=== PATIENT | male | born 1955 ===

== ENCOUNTER 2016-12-01 02:36 | Emergency (ER) | payer MEDICARE ==
[2016-12-01 02:36] VITALS: BMI 32.3
[2016-12-01] MEDS ORDERED: Morphine 4 MG/ML VIAL ONE (03:36)
[2016-12-01] MEDS ORDERED: Morphine 4 MG/ML VIAL IV ONE (04:06)
--- NOTE | 2016-12-01 04:16 | C.PDOC ---
History Of Present Illness 61 year old patient presents to the ED complaining of abdominal pain and nausea since 9 pm yesterday. Patient states he has chronic pancreatitis which is exacerbated. He is requesting medication. Patient was admitted here at [facility] for abdominal pain. Patient had multiple GI studies and a biopsy with no acute findings. Patient was discharged yesterday with Percocet with no relief. Patient denies fever, chest pain, shortness of breath, vomiting, diarrhea, or back pain. Time Seen by Provider: 12/01/16 03:04 Chief Complaint (Nursing): Abdominal Pain History Per: Patient History/Exam Limitations: no limitations Onset/Duration Of Symptoms: Hrs (9 pm), Days (1) Current Symptoms Are (Timing): Still Present Context: Other Severity: Mild Pain Scale Rating Of: 3 Location Of Pain/Discomfort: Diffuse Radiation Of Pain To:: None Quality Of Discomfort: "Pain" Associated Symptoms: Nausea Exacerbating Factors: Other Alleviating Factors: None Last Bowel Movement: Today Recent travel outside of the [place]: No Past Medical History Reviewed: Historical Data, Nursing Documentation, Vital Signs Vital Signs: Last Vital Signs Temp 97.8 F 12/01/16 04:23 Pulse 85 12/01/16 04:23 Resp 18 12/01/16 04:23 BP 160/80 H 12/01/16 04:23 Pulse Ox 98 12/01/16 05:14 - Medical History PMH: Anxiety, Asthma, CAD, Cardia Arrhythmia, Depression, Diabetes (type I), Hepatitis (C), HTN, Hypercholesterolemia, Chronic Pain Surgical History: CABG (X2,4 years ago), [facility]olecyst[facility] - [facility] Procedures ESOPHAGOGASTRODUODENOSCOPY [EGD] W/CLOSED BIOPSY (01/28/04) Family History: States: Unknown Family Hx, Diabetes, Hypertension - Social History Hx Tobacco Use: No Hx Alcohol Use: No Hx Substance Use: No - Immunization History Hx Tetanus Toxoid Vaccination: Yes Hx Influenza Vaccination: Yes (2015) Hx Pneumococcal Vaccination: Yes Review Of Systems Except As Marked, All Systems Reviewed And Found Negative. Constitutional: Negative for: Fever Cardiovascular: Negative for: Chest Pain Respiratory: Negative for: Shortness of Breath Gastrointestinal: Positive for: Nausea, Abdominal Pain. Negative for: Vomiting Musculoskeletal: Negative for: Back Pain Physical Exam - Physical Exam Appears: Non-toxic, No Acute Distress Skin: Warm, Dry Head: Atraumatic, Normacephalic Eye(s): bilateral: Normal Inspection, PERRL, EOMI Neck: Normal ROM, Supple Chest: Symmetrical Cardiovascular: Rhythm Regular Respiratory: Normal Breath Sounds, No Rales, No Rhonchi, No Wheezing Gastrointestinal/Abdominal: Soft, Tenderness (mild and diffuse), No Guarding, No Rebound Back: Normal Inspection, No CVA Tenderness Extremity: Normal ROM Neurological/Psych: Oriented x3, Normal Speech, Normal Cognition ED Course And Treatment O2 Sat by Pulse Oximetry: 98 (RA) Pulse Ox Interpretation: Normal Progress Note: Bentyl was offered. Patient refused. Morphine IM was given. Patient reported to the RN that he has not been eating much recently and he feels lightheaded. Paitent's Accucheck is 47 mg/dL. Patient is given juice and a sanwhich. Patient requests more. Patient is comfortable in the ED with repeat accucheck of 119mg/dl. Patient no longer has pain and is discharged and instructed to follow up with PMD in 1-2 days. Return if symptoms worsen. Reevaluation Time: 03:57 Reassessment Condition: Improved Disposition Counseled Patient/Family Regarding: Diagnosis, Need For Followup - Disposition Referrals: Isabella Solitario MD [Medical Doctor] - Disposition: HOME/ ROUTINE Disposition Time: 04:14 Condition: GOOD Additional Instructions: Follow up with your doctor for chronic pain management Return to ER if worse Instructions: Abdominal Pain (ED) - Clinical Impression Clinical Impression: Chronic abdominal pain - PA / ENVIRONMENTAL TECH / Resident Statement MD/DO has reviewed & agrees with the documentation as recorded. - Scribe Statement The provider has reviewed the documentation as recorded by the Scribe Stephanie Negro All medical record entries made by the Scribe were at my direction and personally dictated by me. I have reviewed the chart and agree that the record accurately reflects my personal performance of the history, physical exam, medical decision making, and the department course for this patient. I have also personally directed, reviewed, and agree with the discharge instructions and disposition.
[2016-12-01 04:25] VITALS: BP 160/80; PULSE 85; RESP 18; TEMP 97.8
[2016-12-01 05:07] VITALS: O2SAT 98
--- NOTE | 2016-12-03 10:21 | CARD ---
APPROVED REPORT EKG Measurement Heart [id number] <Conclusion> Sinus rhythm with 1st degree AV block Possible Left atrial enlargement Possible Inferior infarct, age undetermined Prolonged QT NS ST T CHANGES Abnormal ECG
== END 2016-12-01 04:27 | disposition home or self-care (01) ==
LOC: C.ER 02:36
DX: G89.29 Other chronic pain (principal); R10.9 Unspecified abdominal pain
CPT/HCPCS: 82948; 93005; 96372; 96374; 99284; J0500; J2270

== ENCOUNTER 2016-12-09 06:46 | Emergency (ER) | payer MEDICARE ==
[2016-12-09 06:46] VITALS: BMI 32.3
[2016-12-09 06:59] VITALS: O2SAT 97
--- NOTE | 2016-12-09 07:44 | C.PDOC ---
History Of Present Illness 61 y/o male, whose PMHx includes Diabetes (type I), Hepatitis (C), HTN, Hypercholesterolemia, CAD, Cardia Arrhythmia, and CABG, presents to the ED requesting detox from Oxycontin and Dialudid. He reports that he has been taking these two medications since his open heart surgery 4 years ago. Patient also complains of some left leg pain and reports that he has known clot and is on blood thinners. Patient denies any chest pain, shortness of breath, palpitations, or other complaints. Time Seen by Provider: 12/09/16 07:22 Chief Complaint (Nursing): Substance Abuse History Per: Patient History/Exam Limitations: no limitations Onset/Duration Of Symptoms: Days, Gradual, Persistent Current Symptoms Are (Timing): Still Present Recent travel outside of the [place]: No Past Medical History Reviewed: Historical Data, Nursing Documentation, Vital Signs Vital Signs: Last Vital Signs Temp 98.4 F 12/09/16 11:00 Pulse 78 12/09/16 11:00 Resp 18 12/09/16 11:00 BP 143/85 12/09/16 11:00 Pulse Ox 97 12/09/16 11:54 - Medical History PMH: Anxiety, Asthma, CAD, Cardia Arrhythmia, Depression, Diabetes (type I), Hepatitis (C), HTN, Hypercholesterolemia, Chronic Pain Surgical History: CABG (X2,4 years ago), Cholecystectomy - [facility] Procedures ESOPHAGOGASTRODUODENOSCOPY [EGD] W/CLOSED BIOPSY (01/28/04) INSPECTION OF HEPATOBILIARY DUCT, ENDO (11/25/16) Family History: States: Diabetes, Hypertension - Social History Hx Tobacco Use: No Hx Alcohol Use: No Hx Substance Use: No - Immunization History Hx Tetanus Toxoid Vaccination: Yes Hx Influenza Vaccination: Yes (2016) Hx Pneumococcal Vaccination: Yes Review Of Systems Except As Marked, All Systems Reviewed And Found Negative. Constitutional: Positive for: Other (requesting detox) Cardiovascular: Negative for: Chest Pain, Palpitations Respiratory: Negative for: Shortness of Breath Musculoskeletal: Positive for: Leg Pain (left) Physical Exam - Physical Exam Appears: Non-toxic, No Acute Distress Skin: Normal Color, Warm, Dry Head: Atraumatic, Normacephalic Eye(s): bilateral: Normal Inspection, PERRL Oral Mucosa: Moist Neck: Normal ROM, Supple Chest: Symmetrical, No Tenderness Cardiovascular: Rhythm Regular Respiratory: Normal Breath Sounds, No Rales, No Rhonchi, No Wheezing Gastrointestinal/Abdominal: Normal Exam, Soft, No Tenderness Extremity: Normal ROM, Tenderness (left lower extremity), No Swelling, No Other (erythema) Pulses: Left Dorsalis Pedis: Normal, Right Dorsalis Pedis: Normal Neurological/Psych: Oriented x3, Normal Speech, Normal Cognition, Normal Sensation ED Course And Treatment - Laboratory Results Result Diagrams: 12/09/16 08:01 12/09/16 08:01 Lab Interpretation: Normal ECG: Interpreted By Me ECG Rhythm: Sinus Rhythm Interpretation Of ECst degree AV block, nonspecific ST changes Rate From EC (bpm) O2 Sat by Pulse Oximetry: 97 (ra) Pulse Ox Interpretation: Normal - Other Rad Chest X-Ray X-Ray: Viewed By Me, Read By Radiologist Interpretation: Accession No. : [id number]. Patient Name / ID : TIKA NUNEZ / [id number]. Exam Date : 12/09/2016 07:48:32 ( Approved ). Study Comment : Sex / Age : M / 61Y. Creator : Mag Mcguire MD. Dictator : Mag Mcguire MD. Tack Picker : Gta : Mag Mcguire MD. Approver2 : Report Date : 12/09/2016 11:30:28. My Comment : . HISTORY: SOB. COMPARISON: Chest x-ray performed 11/24/16. TECHNIQUE: Chest PA and lateral. FINDINGS: LUNGS: Mild left basilar atelectasis. Mild biapical pleural thickening. Please note that chest x-ray has limited sensitivity for the detection of pulmonary masses. PLEURA: No significant pleural effusion identified. No definite pneumothorax . CARDIOVASCULAR: Median sternotomy wires. Heart size appears mildly enlarged. Ectatic aorta. OSSEOUS STRUCTURES: Degenerative changes. VISUALIZED UPPER ABDOMEN: Right upper quadrant surgical clips. OTHER FINDINGS: None. IMPRESSION: Mild left basilar atelectasis. Progress Note: Case discussed and patient evaluated by workers compensation legal secretary and Psych information management manager. Patient will be discharged to follow up with outpatient services Reassessment Condition: Unchanged Medical Decision Making Medical Decision Making: Plan: * EKG * CXR * VDS * Labs Disposition Counseled Patient/Family Regarding: Studies Performed, Diagnosis, Need For Followup - Disposition Referrals: Lyle Rivas [Staff Provider] - Disposition: HOME/ ROUTINE Disposition Time: 11:10 Condition: STABLE Additional Instructions: Follow up with outpation services as provided by [employer] Instructions: Narcotic Abuse (ED) - POA Present On Arrival: None - Clinical Impression Clinical Impression: Drug abuse, DVT (deep venous thrombosis), Hx of CABG - PA / SURVEY DATA TECHNICIAN / Resident Statement MD/DO has reviewed & agrees with the documentation as recorded. - Scribe Statement The provider has reviewed the documentation as recorded by the Scribe (Ellie Schneider) All medical record entries made by the Scribe were at my direction and personally dictated by me. I have reviewed the chart and agree that the record accurately reflects my personal performance of the history, physical exam, medical decision making, and the department course for this patient. I have also personally directed, reviewed, and agree with the discharge instructions and disposition.
[2016-12-09 08:07] LABS: BASO # 0.1 K/uL (0.0-0.2); BASO % 0.5 % (0.0-2.0); EOS # 0.1 K/uL (0.0-0.7); EOS % 0.6 % (0.0-4.0); HEMATOCRIT 41.7 % (35.0-51.0); LYMPH # 1.6 K/uL (1.0-4.3); LYMPH % 13.9 % (20.0-40.0); MEAN CORPUSCULAR HEMOGLOBIN 25.9 pg (27.0-31.0); MEAN CORPUSCULAR HGB CONC 31.1 g/dL (33.0-37.0); MEAN PLATELET VOLUME 8.5 fL (7.2-11.7); MONO # 0.6 K/uL (0.0-0.8); MONO % 5.5 % (0.0-10.0); RED CELL DISTRIBUTION WIDTH 15.4 % (11.5-14.5); WHITE BLOOD COUNT 11.6 K/uL (4.8-10.8)
[2016-12-09 08:09] LABS: MEAN CELL VOLUME 83.1 fL (80.0-94.0)
[2016-12-09 08:11] LABS: INR 1.8
[2016-12-09 08:16] LABS: CHLORIDE 94 mmol/L (98-107); POTASSIUM 4.5 mmol/L (3.6-5.2); SODIUM 137 mmol/L (132-148)
[2016-12-09 08:18] LABS: ALB/GLOB RATIO 1.2 (1.0-2.1); AST/SGOT 25 U/L (17-59); BILIRUBIN,TOTAL 0.3 mg/dL (0.2-1.3); BLOOD UREA NITROGEN 12 mg/dL (9-20); CARBON DIOXIDE 31 mmol/L (22-30); GFR AFRICAN-AMERICAN > 60
[2016-12-09 08:19] LABS: ALKALINE PHOSPHATASE 65 U/L (38-126); ALT/SGPT 24 U/L (21-72); CALCIUM 8.9 mg/dl (8.6-10.4); GLUCOSE,RANDOM 137 mg/dL (75-110)
[2016-12-09 08:20] LABS: ALCOHOL SERUM < 10 mg/dl (0-10)
[2016-12-09 09:21] LABS: RBC URINE 2 /hpf (0-3); URINE BILIRUBIN NEGATIVE (NEGATIVE); URINE BLOOD NEGATIVE (NEGATIVE); URINE COLOR Yellow (YELLOW); URINE GLUCOSE (UA) NORMAL (Normal); URINE KETONE NEGATIVE (NEGATIVE); URINE LEUKOCYTE ESTERASE NEG Leu/uL (Negative); URINE PROTEIN NEGATIVE (NEGATIVE); URINE UROBILINOGEN NORMAL mg/dL (0.2-1.0); WBC URINE 1 /hpf (0-5)
[2016-12-09 11:32] VITALS: BP 143/85; PULSE 78; RESP 18; TEMP 98.4
--- NOTE | 2016-12-09 11:33 | RAD ---
HISTORY: SOB COMPARISON: Chest x-ray performed 11/24/16 TECHNIQUE: Chest PA and lateral FINDINGS: LUNGS: Mild left basilar atelectasis. Mild biapical pleural thickening. Please note that chest x-ray has limited sensitivity for the detection of pulmonary masses. PLEURA: No significant pleural effusion identified. No definite pneumothorax . CARDIOVASCULAR: Median sternotomy wires. Heart size appears mildly enlarged. Ectatic aorta. OSSEOUS STRUCTURES: Degenerative changes. VISUALIZED UPPER ABDOMEN: Right upper quadrant surgical clips. OTHER FINDINGS: None. IMPRESSION: Mild left basilar atelectasis.
--- NOTE | 2016-12-09 14:46 | VASCLAB ---
PROCEDURE: Lower Extremity Venous Duplex Exam. HISTORY: pain PRIORS: None. TECHNIQUE: Bilateral common femoral, femoral, popliteal and posterior tibial, peroneal and great saphenous veins were evaluated. Flow was assessed with color Doppler, compressibility, assessment of phasic flow and augmentation response. Report prepared by IBIS Kolb, RVT FINDINGS: RIGHT: 1. Common Femoral Vein: 1.1. Compressibility - Fully compressible: Thrombus - None : Flow - Phasic: Augmentation -Normal: Reflux - None. 2. Femoral Vein: 2.1. Compressibility - Fully compressible: Thrombus - None : Flow - Phasic: Augmentation -Normal: Reflux - None. 3. Popliteal Vein: 3.1. Compressibility - Fully compressible: Thrombus - None : Flow - Phasic: Augmentation -Normal: Reflux - None. 4. Posterior Tibial Vein: 4.1. Compressibility - Fully compressible: Thrombus - None: Flow - Phasic: Augmentation -Normal: Reflux - None. 5. Peroneal Vein: 5.1. Compressibility - Fully compressible: Thrombus - None: Flow - Phasic: Augmentation -Normal: Reflux - None. 6. Great Saphenous Vein: 6.1. Compressibility - Fully compressible: Thrombus - None: Flow - Phasic: Augmentation - Normal: Reflux - None. LEFT: 1. Common Femoral Vein: 1.1. Compressibility - Fully compressible: Thrombus - None: Flow - Phasic: Augmentation -Normal: Reflux - None. 2. Femoral Vein: 2.1. Compressibility - Fully compressible: Thrombus - None: Flow - Phasic: Augmentation -Normal: Reflux - None. 3. Popliteal Vein: 3.1. Compressibility - Fully compressible: Thrombus - None : Flow - Phasic: Augmentation -Normal: Reflux - None. 4. Posterior Tibial Vein: 4.1. Compressibility - Fully compressible: Thrombus - None: Flow - Phasic: Augmentation -Normal: Reflux - None. 5. Peroneal Vein: 5.1. Compressibility - Partial: Thrombus - Chronic: Flow - Absent : Augmentation -None: Reflux - None. 6. Great Saphenous Vein: 6.1. Compressibility - Fully compressible: Thrombus - None: Flow - Phasic: Augmentation - Normal: Reflux - None. OTHER FINDINGS: SHADY Andrade notified about the finding. IMPRESSION: Right: No evidence of deep or superficial vein thrombosis of the right lower extremity. Normal valve function noted of the right side. 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
--- NOTE | 2016-12-10 11:51 | CARD ---
APPROVED REPORT EKG Measurement Heart [id number] <Conclusion> Sinus rhythm with 1st degree AV block Possible Left atrial enlargement Nonspecific T wave abnormality Prolonged QT Abnormal ECG
== END 2016-12-09 11:30 | disposition home or self-care (01) ==
LOC: C.ER 06:46
DX: F19.10 Other psychoactive substance abuse, uncomplicated (principal); I82.402 Acute embolism and thrombosis of unspecified deep veins of left lower extremity; Z95.1 Presence of aortocoronary bypass graft
CPT/HCPCS: 71020; 80053; 81001; 85025; 85610; 93005; 93970; 99285; G0480

== ENCOUNTER 2016-12-12 10:00 | Inpatient (IN) | payer MEDICARE ==
[2016-12-12 10:00] VITALS: BMI 32.3
[2016-12-12 11:20] LABS: BASO # 0.1 K/uL (0.0-0.2); BASO % 0.5 % (0.0-2.0); EOS # 0.1 K/uL (0.0-0.7); EOS % 1.4 % (0.0-4.0); HEMATOCRIT 37.6 % (35.0-51.0); LYMPH # 1.5 K/uL (1.0-4.3); LYMPH % 13.6 % (20.0-40.0); MEAN CELL VOLUME 83.5 fL (80.0-94.0); MEAN CORPUSCULAR HEMOGLOBIN 26.1 pg (27.0-31.0); MEAN CORPUSCULAR HGB CONC 31.3 g/dL (33.0-37.0); MEAN PLATELET VOLUME 8.6 fL (7.2-11.7); MONO # 0.6 K/uL (0.0-0.8); MONO % 5.6 % (0.0-10.0); RED CELL DISTRIBUTION WIDTH 15.6 % (11.5-14.5); WHITE BLOOD COUNT 10.8 K/uL (4.8-10.8)
[2016-12-12 11:42] LABS: CHLORIDE 94 mmol/L (98-107)
[2016-12-12 11:43] LABS: INR 1.1
[2016-12-12 11:43] LABS: POTASSIUM 4.1 mmol/L (3.6-5.2); SODIUM 132 mmol/L (132-148)
--- NOTE | 2016-12-12 11:43 | C.PDOC ---
History Of Present Illness 61 year old patient, with a past medical history of diabetes, asthma, CAD, cardia arrhythmia, hypertension, hepatitis C, and arthritis, is brought to the ED by ambulance complaining of right shoulder pain and left leg pain that has been been going on "for a while," but became worse yesterday. Patient was given 325 mg of Aspirin in the field. Patient reports the right shoulder pain radiates into the upper right chest. Patient denies shortness of breath, vomiting, abdominal pain, numbness or weakness of extremities. Patient was seen in the ED on 12/09/16 requesting Oxycodone and detox from Dilaudid. 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 Time Seen by Provider: 12/12/16 10:05 Chief Complaint (Nursing): Lower Extremity Problem/Injury History Per: Patient History/Exam Limitations: no limitations Onset/Duration Of Symptoms: Worse Since (yesterday), Other ("for a while") Current Symptoms Are (Timing): Still Present Quality: "Pain" Severity: Mild Pain Scale Rating Of: 3 Recent travel outside of the [place]: No Past Medical History Reviewed: Historical Data, Nursing Documentation, Vital Signs Vital Signs: Last Vital Signs Temp 97.9 F 12/12/16 13:14 Pulse 82 12/12/16 13:14 Resp 19 12/12/16 13:14 BP 143/81 12/12/16 13:14 Pulse Ox 99 12/12/16 13:32 - Medical History PMH: Anxiety, Asthma, CAD, Cardia Arrhythmia, Depression, Diabetes (type I), Hepatitis (C), HTN, Hypercholesterolemia, Chronic Pain Surgical History: CABG (X2,4 years ago), Cholecystectomy - [facility] Procedures ESOPHAGOGASTRODUODENOSCOPY [EGD] W/CLOSED BIOPSY (01/28/04) INSPECTION OF HEPATOBILIARY DUCT, ENDO (11/25/16) Family History: States: Diabetes, Hypertension - Social History Hx Tobacco Use: No Hx Alcohol Use: No Hx Substance Use: No - Immunization History Hx Tetanus Toxoid Vaccination: Yes Hx Influenza Vaccination: Yes (2015) Hx Pneumococcal Vaccination: Yes Review Of Systems Except As Marked, All Systems Reviewed And Found Negative. Respiratory: Negative for: Shortness of Breath Gastrointestinal: Negative for: Vomiting, Abdominal Pain Musculoskeletal: Positive for: Shoulder Pain (right), Arm Pain (right), Leg Pain (left) Neurological: Negative for: Weakness, Numbness Physical Exam - Physical Exam Appears: Non-toxic, Other (moaning in pain, awake, alert) Skin: Warm, Dry Head: Atraumatic, Normacephalic Eye(s): bilateral: Normal Inspection, EOMI Neck: Normal ROM, Supple Chest: Symmetrical, No Deformity, No Tenderness, Other (chest midline sternotomy scar) Cardiovascular: Rhythm Regular Respiratory: Normal Breath Sounds, No Rales, No Rhonchi, No Wheezing Back: Normal Inspection, No CVA Tenderness Extremity: Normal ROM, Capillary Refill (within normal limits), No Deformity, Other (right shoulder and humerus:(+) diffusely tender to palpation (-)swelling (-)deformity (-)rash (+)normal capillary refill (+)good radial pulse; left leg: (+)left calf vascular surgery scar (+)lower leg diffusely tender to palpation (- )swelling (-)erythema (+)good pedal pulses) Neurological/Psych: Oriented x3, Normal Speech, Normal Cognition ED Course And Treatment - Laboratory Results Result Diagrams: 12/12/16 11:00 12/12/16 11:00 ECG: Interpreted By Me, Viewed By Me ECG Rhythm: Sinus Rhythm ECG Interpretation: Normal Interpretation Of ECG: Normal axis. No acute ST/T wave changes Rate From EC (bpm) O2 Sat by Pulse Oximetry: 99 (RA) Pulse Ox Interpretation: Normal - Radiology CXR: Interpreted by Me, Viewed By Ia CXR Interpretation: Yes: No Acute Disease. No: Infiltrates, Other (effusion) - CT Scan/US CTA CHEST Other Rad Studies (CT/US): Read By Radiologist, Radiology Report Reviewed CT/US Interpretation: Accession No. : [id number]. Patient Name / ID : TIKA NUNEZ / [id number]. Exam Date : 12/12/2016 12:34:58 ( Approved ). Study Comment : Sex / Age : M / 61Y. Creator : Peña Jacinto MD. Dictator : Peña Jacinto MD. Tree Feller Operator : Well Logging Mud Analysis Captain : Peña Jacinto MD. Approver2 : Report Date : 12/12/2016 13:16:28. My Comment : . PROCEDURE : CT Chest with contrast (Pulmonary Angiogram). HISTORY: h/o dvt, right shoulder/chest pain. COMPARISON: None available. TECHNIQUE: Axial computed tomography images were obtained of the chest in the pulmonary arterial phase of enhancement. Coronal and sagittal reformatted images were created and reviewed. Intravenous contrast dose: 100 mL Visipaque 320. Radiation dose: Total exam DLP = 565.80 mGy-cm. FINDINGS: PULMONARY ARTERIES: There is nonocclusive filling defect seen in the left lower lobe pulmonary artery and several lobar branches. Also the filling defect is seen in a segmental left lower lobe branch. There is a questionable filling defect seen in a right lower lobe subsegmental branch artery. AORTA: No acute findings. No thoracic aortic aneurysm. LUNGS: Minimal bilateral lower lobe dependent atelectasis. No pulmonary infiltrate. PLEURAL SPACES: Unremarkable. No effusion or pneuomothorax. HEART: Normal heart size. CABG. No evidence of right ventricular strain. LYMPH NODES: No lymphadenopathy. BONES, CHEST WALL: Minimal compression deformity superior T11 vertebral endplate, age indeterminate. No paraspinous hemorrhage. Bilateral gynecomastia. OTHER FINDINGS: Pneumobilia. Biliary stent noted. IMPRESSION: Findings consistent with pulmonary embolism involving left lower lobe pulmonary artery and branches and questionable right lower lobe subsegmental pulmonary artery filling defects. No evidence of right ventricular strain. Additional minor findings as above. Progress Note: CTA, Chest x-ray, and EKG taken. Labs were ordered. Toradol and Tylenol given. Disposition Counseled Patient/Family Regarding: Studies Performed, Diagnosis, Need For Followup - Disposition Disposition Time: 13:30 Condition: STABLE - POA Present On Arrival: None - Clinical Impression Clinical Impression: Chest pain, DVT (deep venous thrombosis), Pulmonary embolism - Scribe Statement The provider has reviewed the documentation as recorded by the Scribe Stephanie Negro Provider Attestation: All medical record entries made by the Scribe were at my direction and personally dictated by me. I have reviewed the chart and agree that the record accurately reflects my personal performance of the history, physical exam, medical decision making, and the department course for this patient. I have also personally directed, reviewed, and agree with the discharge instructions and disposition.
[2016-12-12 11:45] LABS: ALB/GLOB RATIO 1.2 (1.0-2.1); ALKALINE PHOSPHATASE 69 U/L (38-126); ALT/SGPT 28 U/L (21-72); AST/SGOT 26 U/L (17-59); BILIRUBIN,TOTAL 0.2 mg/dL (0.2-1.3); BLOOD UREA NITROGEN 18 mg/dL (9-20); CARBON DIOXIDE 25 mmol/L (22-30); GFR AFRICAN-AMERICAN > 60; GLUCOSE,RANDOM 178 mg/dL (75-110)
[2016-12-12] MEDS ORDERED: Iodixanol 320 MG/ML 100 ML BOTTLE IV ONE (12:01)
[2016-12-12] MEDS ORDERED: Morphine 4 MG/ML VIAL ONE ×2 (12:13→13:37)
--- NOTE | 2016-12-12 13:18 | CT ---
PROCEDURE: CT Chest with contrast (Pulmonary Angiogram) HISTORY: h/o dvt, right shoulder/chest pain COMPARISON: None available. TECHNIQUE: Axial computed tomography images were obtained of the chest in the pulmonary arterial phase of enhancement. Coronal and sagittal reformatted images were created and reviewed. Intravenous contrast dose: 100 mL Visipaque 320 Radiation dose: Total exam DLP = 565.80 mGy-cm. FINDINGS: PULMONARY ARTERIES: There is nonocclusive filling defect seen in the left lower lobe pulmonary artery and several lobar branches. Also the filling defect is seen in a segmental left lower lobe branch. There is a questionable filling defect seen in a right lower lobe subsegmental branch artery. AORTA: No acute findings. No thoracic aortic aneurysm. LUNGS: Minimal bilateral lower lobe dependent atelectasis. No pulmonary infiltrate. PLEURAL SPACES: Unremarkable. No effusion or pneuomothorax. HEART: Normal heart size. CABG. No evidence of right ventricular strain. LYMPH NODES: No lymphadenopathy. BONES, CHEST WALL: Minimal compression deformity superior T11 vertebral endplate, age indeterminate. No paraspinous hemorrhage. Bilateral gynecomastia. OTHER FINDINGS: Pneumobilia. Biliary stent noted. IMPRESSION: Findings consistent with pulmonary embolism involving left lower lobe pulmonary artery and branches and questionable right lower lobe subsegmental pulmonary artery filling defects. No evidence of right ventricular strain. Additional minor findings as above.
[2016-12-12] MEDS ORDERED: Enoxaparin 40 mg Syringe SC STA (13:29)
[2016-12-12] MEDS ORDERED: Enoxaparin 60 mg Syringe ONE (13:36)
[2016-12-12] MEDS ORDERED: Enoxaparin 30 mg Syringe ONE (13:37)
--- NOTE | 2016-12-12 15:54 | RAD ---
PROCEDURE: CHEST RADIOGRAPH, 1 VIEW HISTORY: chest/shoulder pain COMPARISON: None available. FINDINGS: LUNGS: Clear. PLEURA: No pneumothorax or pleural fluid seen. CARDIOVASCULAR: Normal heart size. Sternotomy wires. OSSEOUS STRUCTURES: No significant abnormalities. VISUALIZED UPPER ABDOMEN: Normal. OTHER FINDINGS: None. IMPRESSION: No active disease.
[2016-12-12 16:19] VITALS: RESP 20
--- NOTE | 2016-12-12 16:21 | CP.PCM.HP ---
<Star Hercules - Last Filed: 12/12/16 18:46> History of Present Illness - History of Present Illness History of Present Illness: CC: right shoulder pain HPI: 61M PMHx LLE DVT, DM, hepatitis C, CAD with CABG, HTN, anxiety presents with right shoulder pain for one day. Patient described pain as sudden onset and sharp with severe intensity in the right bicep area without radiation, and pain exacerbates with movement. Patient also complains chronic left leg pain secondary to DVT, as well as bilateral lower extremity edema. Per ED report, patient was given ASA 325mg in the field. Patient denied associated SOB, chest pain, palpitation, abdominal pain, n/v, fever, chills, trauma, numbness, tingling, constipation, diarrhea. Patient said he was diagnosed with hepatitis C 3 years ago but haven't follow up with any specialist. Patient also said he was compliant all of his medications at home. Patient has history of leaving AMA and exhibits drug seeking behavior for pain. Per state record, patient gets Percocet 10mg from his neurologist Dr. Parrish. PMHx: see above. PSHx: pancreatic surgery 20 years ago, cholecystectomy, CABG, b/l rotator cuff tears. Allergies: NKDA (PCN as per EMR). Family Hx: Mother with HI at 63. PMD: Dr. Colby Present on Admission - Present on Admission Any Indicators Present on Admission: Yes History of DVT/PE: Yes Review of Systems - Constitutional Constitutional: absent: Anorexia, Fever, Weakness - EENT Eyes: absent: Blurred Vision Nose/Mouth/Throat: absent: Nasal Congestion - Cardiovascular Cardiovascular: Leg Edema. absent: Chest Pain, Claudication, Dyspnea - Respiratory Respiratory: absent: Cough, Dyspnea, Wheezing - Gastrointestinal Gastrointestinal: absent: Abdominal Pain, Constipation, Diarrhea, Nausea, Vomiting - Genitourinary Genitourinary: absent: Dysuria - Musculoskeletal Additional comments: right arm pain - Neurological Neurological: absent: Headaches, Weakness - Psychiatric Psychiatric: absent: Anxiety Past Patient History - Infectious Disease Hx of Infectious Diseases: None - Past Medical History & Family History Past Medical History?: Yes - Past Social History Smoking Status: Former Smoker - CARDIAC Hx Cardia Arrhythmia: Yes Hx Hypercholesterolemia: Yes Hx Hypertension: Yes - PULMONARY Hx Asthma: Yes - NEUROLOGICAL Hx Neurological Disorder: Yes Other/Comment: neuropathy - ENDOCRINE/METABOLIC Hx Endocrine Disorders: Yes Hx Diabetes Mellitus Type 2: Yes - HEMATOLOGICAL/ONCOLOGICAL Hx Blood Disorders: Yes Hx Hepatitis C: Yes - INTEGUMENTARY Hx Dermatological Problems: No - MUSCULOSKELETAL/RHEUMATOLOGICAL Hx Musculoskeletal Disorders: Yes Hx Falls: Yes - GASTROINTESTINAL Hx Gastrointestinal Disorders: Yes Hx Constipation: Yes Hx Hemorrhoids: Yes Other/Comment: pancreatitis - GENITOURINARY/GYNECOLOGICAL Hx Genitourinary Disorders: Yes (SEE COMMENT) Hx Urinary Tract Infection: Yes (dx 04/07/2016) - PSYCHIATRIC Hx Anxiety: Yes Hx Depression: Yes Hx Substance Use: No - SURGICAL HISTORY Hx Cholecystectomy: Yes Hx Coronary Artery Bypass Graft: Yes (X2,4 years ago) - ANESTHESIA Hx Anesthesia: Yes Hx Anesthesia Reactions: No Hx Malignant Hyperthermia: No Has any member of the family had a problem w/ anesthesia?: No Meds Allergies/Adverse Reactions: Allergies Allergy/AdvReac Type Severity Reaction Status Date / Time Penicillins Allergy RASH Verified 12/12/16 10:01 Physical Exam - Constitutional Appears: Non-toxic, No Acute Distress - Head Exam Head Exam: NORMAL INSPECTION, NORMOCEPHALIC - Eye Exam Eye Exam: Normal appearance Pupil Exam: NORMAL ACCOMODATION - Respiratory Exam Respiratory Exam: Clear to Auscultation Bilateral, NORMAL BREATHING PATTERN. absent: Rhonchi, Wheezes - Cardiovascular Exam Cardiovascular Exam: REGULAR RHYTHM, JVD, +S1, +S2. absent: Gallop, Rubs - GI/Abdominal Exam GI & Abdominal Exam: Normal Bowel Sounds, Soft. absent: Tenderness - Extremities Exam Extremities exam: Positive for: pedal edema (bilateral), tenderness (bilateral left calf), pedal pulses present Additional comments: right bicep tender to palpation, strength 3/5 secondary to pain, sensations intact bilaterally - Neurological Exam Neurological exam: Alert, Oriented x3 - Psychiatric Exam Psychiatric exam: Normal Affect, Normal Mood - Skin Skin Exam: Dry, Intact Results - Vital Signs Recent Vital Signs: Last Vital Signs Temp 98.2 F 12/12/16 14:23 Pulse 84 12/12/16 14:23 Resp 16 12/12/16 14:23 BP 139/82 12/12/16 14:23 Pulse Ox 97 12/12/16 14:23 - Labs Result Diagrams: 12/12/16 11:00 12/12/16 11:00 Assessment & Plan - Assessment and Plan (Free Text) Assessment: PE Pulmonary angiogram showed PE in left lower lobe pulmonary artery and branches, and questionable right lower lobe subsegmental pulmonary artery filling defects. No defect os ventricular strain. Vascular surgeon Dr. Diane consulted for evaluation of IVC filter due to questionable home med compliance, help appreciated. Patient was given Lovenox 90mg SC once in ED. Continue Lovenox 90mg SC q12H. F/U LUCIAN x2. DVT Pt said he has been compliant with Xarelto 15mg PO BID at home. PT/PTT/INR WNL. DM RISS, accuccheck. Continue home med Novolin 70/30 60U SC BID. Home med Metformin on hold. F/U A1c. CHF Continue home med Lasix 20mg PO BID, Lopressor 25mg PO BID and Lisionpril 10mg PO daily F/U ECHO. HTN Continue home med Lopressor 25mg PO BID and Lisionpril 10mg PO daily Hx of arrhythmia Continue home med Amiodarone 200mg PO daily. Hx of anxiety Continue home med Xanax 1mg PO TID PRN, Cymbalta 60mg PO daily, Lyrica 75mg PO BID, Lexapro 10mg PO daily and Remeron 30mg PO HS. Back pain Continue home med Percocet 5mg 2 tab PO q8H PRN. Prophylactic measure SCD contraindicated due to DVT. Lovenox 90mg SC q12H Protonix 40mg PO daily. <Erasto Ray - Last Filed: 12/13/16 08:44> Results - Vital Signs Recent Vital Signs: Last Vital Signs Temp 97.6 F 12/13/16 00:00 Pulse 89 12/13/16 00:00 Resp 20 12/13/16 00:00 BP 148/70 12/13/16 00:00 Pulse Ox 96 12/13/16 00:00 - Labs Result Diagrams: 12/12/16 11:00 12/12/16 11:00 Labs: Laboratory Results - last 24 hr 12/12/16 12/12/16 12/13/16 21:25 22:27 06:09 POC Glucose (mg/dL) 462 H* 483 H* Total Creatine Kinase 54 L CK-MB (Mass) 1.11 Troponin I, Quant < 0.0120 Attending/Attestation - Attestation I have personally seen and examined this patient.: Yes I have fully participated in the care of the patient.: Yes I have reviewed all pertinent clinical information: Yes Notes (Text): Patient with CAD s/p CABG, DM, recent LLE DVT (started on xarelto), hep C, depression, anxiety disorder and back pain, presented to ED with multiple pain complaints including chest pain and R arm pain; In light of DVT history, chest CTA was done and showed PE (no previous CTA done here); Patient admits to being adherent to all his meds including xarelto which was last filled on 12/03/16 per his outpatient pharmacy; however, neither PT and PTT are prolonged (some degree of prolongation is generally expected even though no specific target range can be used for monitoring); further, patient has history of poor medical compliance including signing AMA from ED when DVT was initially discovered; Unclear etiology of R humerus pain, will get plain films; back pain is chronic, on percocet 10-325 at home (120 pills per month regularly [facility] will restart q8h prn; Has pain seeking behavior, asking for dilaudid and refusing morphine saying that it causes him GI symptoms; DM on very high dose of 70/30 insulin, 60 u bid, will restart; sugars earlier in the day relatively controlled; HTN controlled, continue home meds; Depression and anxiety, continue home meds; -vascular surgery consult for IVC filter (either because patient has PE despite being on AC or is non-compliant with meds)
[2016-12-12] MEDS ORDERED: Metoprolol Succinate 25 mg XL Tab PO SCH (18:00)
[2016-12-12] MEDS: (Novolin 70/30) NPH/Regular 70/30 Units/ml 10 ml vial SC SCH (18:04)
[2016-12-12] MEDS: Oxycodone/Acetaminophen 5/325 mg Tab PO PRN (19:14)
[2016-12-12] MEDS: (Novolin R) Insulin Human Regular 100 units/ml vial SC SCH (21:45)
[2016-12-13] MEDS: Oxycodone/Acetaminophen 5/325 mg Tab PO PRN (05:10)
--- NOTE | 2016-12-13 07:50 | CP.PCM.PN ---
Subjective - Date & Time of Evaluation Date of Evaluation: 12/13/16 Time of Evaluation: 06:49 - Subjective Subjective: Code star called at 6:49am. Patient found on floor next to bed, yelling at staff , demanding his pain medication. When I attempted to interview the patient and perform a physical exam, he remained irate yelling at the top of his lungs that he wants his dilaudid or percocet, yelling "I have clots in my legs, clots in my pancreas, I can feel them traveling to my brain, if I I'm going to tay you." Per nursing, patient was observed walking to the nourishment area roughly 30 minutes prior to this code. His blood glucose was elevated, and nursing attempted to instruct the patient on proper glucose control, advising him to consume low sugar foods. Patient disregarded this, drank 2 juices, and walked back to his room without any difficulty. Soon after he demanded dilaudid, was informed it wasn't time yet, and when the nurses left the room, he buzzed them back in using the call chang, only to be found lying next to his bed. As soon as nursing walked into the room, he made eye contact, and began to scream his demands. On physical exam: General: angry, irritated, non-compliant HEENT: atraumatic, normocephalic, MMM, no contusion or scalp pain PULM: CTA b/l Cardio: RRR, S1, S2 Extremities: Motion testing normal/intact; old surgical incision noted on L leg. Skin: No contusions or laceration visible Throught evening, Pt refused vitals, LUCIAN's, lab work, accuchecks, heart monitor , and all other intervention. Pt states he only wants percocet for hx of blood clot and that he will tay if he doesn't get percocet. 1:1 order placed to observe patient and maintain safety. Day team to f/u CT Head w/o contrast and b/ l Knee Xrays. PGY1 Resident - Peña Grider Objective - Vital Signs/Intake and Output Vital Signs (last 24 hours): Temp Pulse Resp BP Pulse Ox 97.6 F 89 20 148/70 96 12/13/16 00:00 12/13/16 00:00 12/13/16 00:00 12/13/16 00:00 12/13/16 00:00 Intake and Output: 12/13/16 12/13/16 06:59 18:59 Intake Total 840 Balance 840 - Medications Medications: Current Medications Alprazolam (Xanax) 1 mg PO TID PRN PRN Reason: Anxiety Last Admin: 12/12/16 18:01 Dose: 1 mg Amiodarone HCl (Cordarone) 200 mg PO DAILY [facility] Duloxetine HCl (Cymbalta) 60 mg PO DAILY [facility] Escitalopram Oxalate (Lexapro) 10 mg PO DAILY [facility] Fenofibrate (Tricor) 48 mg PO QPM [facility] Last Admin: 12/12/16 19:00 Dose: 48 mg Furosemide (Lasix) 20 mg PO BID [facility] Last Admin: 12/12/16 18:01 Dose: 20 mg Insulin Human Isoph/Insulin Regular (Novolin 70/30 (70/30 Units/Ml) 10 Ml) 60 units SC BID [facility] Last Admin: 12/12/16 18:04 Dose: Not Given Insulin Human Regular (Novolin R) 0 unit SC ACHS [facility] PRN Reason: Protocol Last Admin: 12/12/16 21:45 Dose: 4 unit Lisinopril (Zestril) 10 mg PO DAILY [facility] Metoprolol Tartrate (Lopressor) 25 mg PO BID [facility] Mirtazapine (Remeron) 30 mg PO HS [facility] Last Admin: 12/12/16 21:07 Dose: 30 mg Oxycodone/Acetaminophen (Percocet 5/325 Mg Tab) 2 tab PO Q8H PRN PRN Reason: severe pain Stop: 12/15/16 17:34 Last Admin: 12/13/16 05:10 Dose: 2 tab Pantoprazole Sodium (Protonix Ec Tab) 40 mg PO DAILY [facility] Pregabalin (Lyrica) 75 mg PO BID [facility] Last Admin: 12/12/16 18:01 Dose: 75 mg Zolpidem Tartrate (Ambien) 5 mg PO HS PRN PRN Reason: Insomnia - Labs Labs: PT 12.1 SECONDS (9.7-12.2) 12/12/16 11:24 INR 1.1 12/12/16 11:24 APTT 23 SECONDS (21-34) 12/12/16 11:24
[2016-12-13] MEDS: (Novolin R) Insulin Human Regular 100 units/ml vial SC SCH ×3 (09:09→16:15)
[2016-12-13] MEDS ORDERED: Pantoprazole 40 mg EC Tab PO SCH (10:00)
[2016-12-13] MEDS: (Novolin 70/30) NPH/Regular 70/30 Units/ml 10 ml vial SC SCH (10:07)
[2016-12-13] MEDS ORDERED: HYDROmorphone 0.5 mg/0.5 ml ISec IVP PRN ×2 (10:12→10:24)
[2016-12-13] MEDS ORDERED: Oxycodone/Acetaminophen 5/325 mg Tab PO PRN (10:24)
[2016-12-13] MEDS ORDERED: Enoxaparin 100 mg Syringe SC SCH (11:00)
--- NOTE | 2016-12-13 11:06 | RAD ---
PROCEDURE: Bilateral knees HISTORY: code star COMPARISON: Not available TECHNIQUE: AP and lateral portable radiographs of the right and left knee FINDINGS: No evidence of fracture. Joint spaces and articular surfaces are grossly preserved. No evidence of joint effusion/hemarthrosis. IMPRESSION: No acute fracture.
--- NOTE | 2016-12-13 11:07 | RAD ---
PROCEDURE: Right shoulder HISTORY: right shoulder pain COMPARISON: 01/06/2016 TECHNIQUE: Limited single AP radiograph, portable FINDINGS: No evidence of fracture. No dislocation. Acromioclavicular and glenohumeral articulations appear preserved. IMPRESSION: No acute fracture. Limited examination
--- NOTE | 2016-12-13 11:07 | PCM.PSYCH ---
Initial Psychiatric Evaluation - Initial Psychiatric Evaluation Legal Status: Capacity Chief Complaint (in patient's own words): REASON FOR CONSULT;CAPACITY OF PATIENT TO SIGN OUT AMA PT HAS A PE. PT WANTED TO LEAVE BECAUSE HE WAS RECEIVING THE PAIN MEDICATION HE WANTED/NEEDED. PT WANTED DILAUDID AND HE HAS BEEN RECEIVING DILAUDID BUT PT DID NOT SEEM AWARE OF THIS. PT IS A 62 YEAR OLD DOMICILED MALE WHO WAS ORIGINALLY ADMITTED FOR RIGHT SHOULDER PAIN AND FOUND TO BE A PULMONARY EMBOLUS. PT HAS A HISTORY OF DVTS. PT ALSO SUFFERS FROM ANXIETY AND DEPRESSION. PT WAS SUPPOSED TO BE TAKING XARELTO AT HOME BUT UNCLEAR IF HE WAS ADHERENT PT IS ALSO A INSULIN REQUIRING TYPE 2 DIABETIC. PT WAS BORN IN [place] AND CAME TO [facility] AGE 7. PT IS . HE WAS . HE HAS 3 ADULT CHILDREN. HE HAS NO LEGAL, OR SUBSTANCE ABUSE HISTORY. HE DENIES ANY FAMILY HISTORY OF MENTAL ILLNESS OR SUBSTANCE ABUSE HISTORY PT DENIES HE HAS EVER BEEN IN PT FOR PSYCHIATRIC REASON IN MY OPINION WITH A FAIR DEGREE OF MEDICAL CERTAINTY , THE PT IS AWARE OF THE POSSIBLE CONSEQUENCES OF LEAVING THE HOSPITAL AGAINST MEDICAL ADVICE. PT IS NOT CURRENTLY SUICIDAL OR HOMICIDAL. HOWEVER, THIS IS NO GUARANTEE FOR THE FUTURE. THE BEST PREDICTOR OF FUTURE BEHAVIOR IS PASSED BEHAVIOR Patient's Reaction to Hospitalization: SEE ABOVE History of Present Illness and Precipitating Events: SEE ABOVE PT SUFFERS FROM DIABETES, DVTS, ANXIETY AND DEPRESSION Current Medications: Active Medications Generic Name Dose Route Start Last Admin Trade Name Freq PRN Reason Stop Dose Admin Alprazolam 1 mg 12/12/16 17:31 12/12/16 18:01 Xanax PO 1 mg TID PRN Administration Anxiety Amiodarone HCl 200 mg 12/13/16 10:00 12/13/16 09:10 Cordarone PO 200 mg DAILY [facility] Administration Duloxetine HCl 60 mg 12/13/16 10:00 Cymbalta PO DAILY [facility] Escitalopram Oxalate 10 mg 12/13/16 10:00 Lexapro PO DAILY [facility] Fenofibrate 48 mg 12/12/16 18:00 12/12/16 19:00 Tricor PO 48 mg QPM [facility] Administration Furosemide 20 mg 12/12/16 18:00 12/13/16 09:10 Lasix PO 20 mg BID [facility] Administration Hydromorphone HCl 0.1 mg 12/13/16 10:24 Dilaudid IVP Q8H PRN severe pain Insulin Human Isoph/Insulin Regular 60 units 12/12/16 18:00 12/13/16 10:07 Novolin 70/30 (70/30 Units/Ml) 10 Ml SC 60 units BID [facility] Administration Insulin Human Regular 0 unit 12/12/16 22:00 12/13/16 09:09 Novolin R SC 12 unit ACHS [facility] Administration Protocol Lisinopril 10 mg 12/13/16 10:00 Zestril PO DAILY [facility] Metoprolol Tartrate 25 mg 12/13/16 10:00 12/13/16 09:11 Lopressor PO 25 mg BID [facility] Administration Mirtazapine 30 mg 12/12/16 22:00 12/12/16 21:07 Remeron PO 30 mg HS [facility] Administration Oxycodone/Acetaminophen 2 tab 12/13/16 10:24 Percocet 5/325 Mg Tab PO 12/15/16 17:34 Q6H PRN severe pain Pantoprazole Sodium 40 mg 12/13/16 10:00 Protonix Ec Tab PO DAILY [facility] Pregabalin 75 mg 12/12/16 18:00 12/13/16 09:08 Lyrica PO 75 mg BID [facility] Administration Zolpidem Tartrate 5 mg 12/12/16 17:34 Ambien PO HS PRN Insomnia Past Psychiatric History - Past Psychiatric History Prior Professional Help: SEE HPI Pertinent Medical Hx (Current Medical&Sleep Prob, Allergies): Allergies Allergy/AdvReac Type Severity Reaction Status Date / Time Penicillins Allergy RASH Verified 12/12/16 10:01 Metoprolol Succinate 25 mg PO BID 02/19/15 Lisinopril [Zestril] 10 mg PO DAILY 08/04/16 Omeprazole Magnesium [Prilosec Otc] 20 mg PO QPM #30 tab 08/04/16 Rivaroxaban [Xarelto] 15 mg PO BID #28 tab 11/19/16 Aluminum Hydroxide/Magnesium H [Maalox 30 ml] 30 ml PO ONCE udc 11/30/16 Amiodarone [Cordarone] 200 mg PO DAILY tab 11/30/16 Escitalopram [Lexapro] 10 mg PO DAILY #30 tab 11/30/16 Fenofibrate [Tricor] 48 mg PO QPM tab 11/30/16 Furosemide [Lasix] 20 mg PO BID tab 11/30/16 Insulin Human (NPH)/Regular [Novolin 70/30 (70/30 units/ml) 10 ml] 60 units SC BID unit 11/30/16 Mirtazapine [Remeron] 30 mg PO HS tab 11/30/16 metFORMIN [glucOPHAGE] 1,000 mg PO BIDCC #60 tab 11/30/16 oxyCODONE/Acetaminophen [Percocet 5/325 mg Tab] 1 ea PO Q6H PRN #10 tab Review of Systems - Constitutional Constitutional: Malaise - EENT Eyes: UNREMARKABLE Ears: UNREMARKABLE Nose/Mouth/Throat: UNREMARKABLE - Cardiovascular Additional comments: RIGHT SHOULDER PAIN - Respiratory Respiratory: Dyspnea - Genitourinary Genitourinary: UNREMARKABLE - Reproductive: Male Reproductive:Male: UNREMARKABLE - Musculoskeletal Musculoskeletal: Radiating Pain into Limb - Integumentary Integumentary: UNREMARKABLE - Neurological Neurological: UNREMARKABLE - Psychiatric Psychiatric: Anxiety, Depression - Endocrine Endocrine: UNREMARKABLE - Hematologic/Lymphatic Additional comments: DVTS Mental Status Examination - Personal Presentation Personal Presentation: Looks older than stated age - Affect Affect: Constricted - Motor Activity Motor Activity: Psychomotor Agitation - Reliability in Providing Information Reliability in Providing Information: Good - Speech Speech: Organized - Mood Mood: Anxious - Formal Thought Process Formal Thought Process: No Impairment - Obsessions/Compulsions Obsessions: None Compulsions: None - Cognitive Functions Orientation: Person, Place, Situation, Time Attention/Concentration: Attentive Abstract Thinking: [place] Memory: Recent intact, as evidence by: Ability to recall events of the day, Remote intact, as evidenced by: Ability to recall historical events - Risk Risk: Falls - Strength & Assets Inventory Strength & Assets Inventory: Intelligence, Family support DSM 5 DX - DSM 5 DSM 5 Diagnosis: MAJOR DEPRESSIVE DISORDER GENERALIZED ANXIETY DISORDER PULMONARY EMBOLUS\DVTS DIABETES MELLITUS - Recommended/Plan of Treatment Treatment Recommendations and Plan of Treatment: MAJOR DEPRESSIVE DISORDER CYMBALTA LEXAPRO RENEROM SOPHY XANAX PULMONARY EMBOLUS/DVT= LOVENOX IVC FILTER DIABETES MELLITUS INSULIN Projected ELOS: TO BE DECIDED BY MEDICINE ND SURGERY Prognosis: FAIR Discharge Plan and Discharge Criteria: RETUTN HOME - Smoking Cessation Smoking Cessation Initiated: No Reason for not providing: DOES NOT SMOKE
--- NOTE | 2016-12-13 12:48 | CP.PCM.PN ---
Subjective - Date & Time of Evaluation Date of Evaluation: 12/13/16 Time of Evaluation: 12:48 - Subjective Subjective: for wednesday Objective - Vital Signs/Intake and Output Vital Signs (last 24 hours): Temp Pulse Resp BP Pulse Ox 97.6 F 89 20 153/74 H 96 12/13/16 00:00 12/13/16 00:00 12/13/16 00:00 12/13/16 09:11 12/13/16 00:00 Intake and Output: 12/13/16 12/13/16 06:59 18:59 Intake Total 840 Balance 840 - Medications Medications: Current Medications Alprazolam (Xanax) 1 mg PO TID PRN PRN Reason: Anxiety Last Admin: 12/12/16 18:01 Dose: 1 mg Amiodarone HCl (Cordarone) 200 mg PO DAILY [facility] Last Admin: 12/13/16 09:10 Dose: 200 mg Duloxetine HCl (Cymbalta) 60 mg PO DAILY [facility] Last Admin: 12/13/16 11:49 Dose: Not Given Escitalopram Oxalate (Lexapro) 10 mg PO DAILY [facility] Last Admin: 12/13/16 11:50 Dose: Not Given Fenofibrate (Tricor) 48 mg PO QPM [facility] Last Admin: 12/12/16 19:00 Dose: 48 mg Furosemide (Lasix) 20 mg PO BID [facility] Last Admin: 12/13/16 09:10 Dose: 20 mg Hydromorphone HCl (Dilaudid) 0.1 mg IVP Q8H PRN PRN Reason: severe pain Last Admin: 12/13/16 11:46 Dose: 0.1 mg Insulin Human Isoph/Insulin Regular (Novolin 70/30 (70/30 Units/Ml) 10 Ml) 60 units SC BID [facility] Last Admin: 12/13/16 10:07 Dose: 60 units Insulin Human Regular (Novolin R) 0 unit SC ACHS [facility] PRN Reason: Protocol Last Admin: 12/13/16 09:09 Dose: 12 unit Lisinopril (Zestril) 10 mg PO DAILY [facility] Metoprolol Tartrate (Lopressor) 25 mg PO BID [facility] Last Admin: 12/13/16 09:11 Dose: 25 mg Mirtazapine (Remeron) 30 mg PO HS [facility] Last Admin: 12/12/16 21:07 Dose: 30 mg Oxycodone/Acetaminophen (Percocet 5/325 Mg Tab) 2 tab PO Q6H PRN PRN Reason: severe pain Stop: 12/15/16 17:34 Pantoprazole Sodium (Protonix Ec Tab) 40 mg PO DAILY [facility] Pregabalin (Lyrica) 75 mg PO BID [facility] Last Admin: 12/13/16 09:08 Dose: 75 mg Zolpidem Tartrate (Ambien) 5 mg PO HS PRN PRN Reason: Insomnia - Labs Labs: PT 12.1 SECONDS (9.7-12.2) 12/12/16 11:24 INR 1.1 12/12/16 11:24 APTT 23 SECONDS (21-34) 12/12/16 11:24
--- NOTE | 2016-12-13 12:50 | CT ---
PROCEDURE: CT HEAD WITHOUT CONTRAST. HISTORY: Code star, pt reports hitting head, no contusion COMPARISON: None available. TECHNIQUE: Axial computed tomography images were obtained through the head/brain without intravenous contrast. Radiation dose: Total exam DLP = 859.55 mGy-cm. FINDINGS: HEMORRHAGE: No intracranial hemorrhage. BRAIN: No mass effect or edema. Mild age-appropriate diffuse atrophy. Mild chronic microvascular white matter ischemic change. No evidence of acute infarct. VENTRICLES: Unremarkable. No hydrocephalus. CALVARIUM: Unremarkable. PARANASAL SINUSES: Unremarkable as visualized. No significant inflammatory changes. MASTOID AIR CELLS: Unremarkable as visualized. No inflammatory changes. OTHER FINDINGS: None. IMPRESSION: Age-appropriate involutional change. No intracranial hemorrhage. Otherwise unremarkable.
--- NOTE | 2016-12-13 13:51 | CP.PCM.PN ---
Subjective - Date & Time of Evaluation Date of Evaluation: 12/14/15 Time of Evaluation: 10:00 - Subjective Subjective: PGY2 on medicine Dr. Ray service: Pt seen and examined at bedside and hallway. Pt refused all blood tests and imaging studies this morning because he was not given Dilaudid. Pt complains severe pain with his LLE due to chronic DVT. Pt was placed on 1:1 after joe lo after RN found him laying on the floor, after failure to obtain Dilaudid. Pt also got aggressive with CP on the floor as well and Ativan 1mg IM was given. Joe carcamo was called after pt trying to leave AMA. Risks of leaving AMA was explained to pt at length. Psych Dr. Chamberlain was consulted and determined that patient has capacity to make decisions. Pt calmed down after Dilaudid 1mg IVP q8H started as per attending Dr. Ray. Pt scheduled to have IVC filter placement on Wednesday as per Dr. Diane. Objective - Vital Signs/Intake and Output Vital Signs (last 24 hours): Temp Pulse Resp BP Pulse Ox 97.6 F 89 20 153/74 H 96 12/13/16 00:00 12/13/16 00:00 12/13/16 00:00 12/13/16 09:11 12/13/16 00:00 Intake and Output: 12/13/16 12/13/16 06:59 18:59 Intake Total 840 Balance 840 - Medications Medications: Current Medications Alprazolam (Xanax) 1 mg PO TID PRN PRN Reason: Anxiety Last Admin: 12/12/16 18:01 Dose: 1 mg Amiodarone HCl (Cordarone) 200 mg PO DAILY [facility] Last Admin: 12/13/16 09:10 Dose: 200 mg Duloxetine HCl (Cymbalta) 60 mg PO DAILY [facility] Last Admin: 12/13/16 11:49 Dose: Not Given Enoxaparin Sodium (Lovenox) 90 mg SC Q12 [facility] Escitalopram Oxalate (Lexapro) 10 mg PO DAILY [facility] Last Admin: 12/13/16 11:50 Dose: Not Given Fenofibrate (Tricor) 48 mg PO QPM [facility] Last Admin: 12/12/16 19:00 Dose: 48 mg Furosemide (Lasix) 20 mg PO BID [facility] Last Admin: 12/13/16 09:10 Dose: 20 mg Hydromorphone HCl (Dilaudid) 0.1 mg IVP Q8H PRN PRN Reason: severe pain Last Admin: 12/13/16 11:46 Dose: 0.1 mg Insulin Human Isoph/Insulin Regular (Novolin 70/30 (70/30 Units/Ml) 10 Ml) 60 units SC BID [facility] Last Admin: 12/13/16 10:07 Dose: 60 units Insulin Human Regular (Novolin R) 0 unit SC ACHS MARCELL PRN Reason: Protocol Last Admin: 12/13/16 13:11 Dose: 10 unit Lisinopril (Zestril) 10 mg PO DAILY [facility] Last Admin: 12/13/16 10:00 Dose: Not Given Metoprolol Tartrate (Lopressor) 25 mg PO BID [facility] Last Admin: 12/13/16 09:11 Dose: 25 mg Mirtazapine (Remeron) 30 mg PO HS [facility] Last Admin: 12/12/16 21:07 Dose: 30 mg Oxycodone/Acetaminophen (Percocet 5/325 Mg Tab) 2 tab PO Q6H PRN PRN Reason: severe pain Stop: 12/15/16 17:34 Pantoprazole Sodium (Protonix Ec Tab) 40 mg PO DAILY [facility] Last Admin: 12/13/16 10:00 Dose: Not Given Pregabalin (Lyrica) 75 mg PO BID [facility] Last Admin: 12/13/16 09:08 Dose: 75 mg Zolpidem Tartrate (Ambien) 5 mg PO HS PRN PRN Reason: Insomnia - Labs Labs: PT 12.1 SECONDS (9.7-12.2) 12/12/16 11:24 INR 1.1 12/12/16 11:24 APTT 23 SECONDS (21-34) 12/12/16 11:24 - Constitutional Appears: No Acute Distress, Agitated - Eye Exam Eye Exam: Normal appearance Pupil Exam: NORMAL ACCOMODATION - Respiratory Exam Respiratory Exam: Clear to Ausculation Bilateral, NORMAL BREATHING PATTERN. absent: Rhonchi, Wheezes - Cardiovascular Exam Cardiovascular Exam: REGULAR RHYTHM, +S1, +S2. absent: Gallop, Rubs - GI/Abdominal Exam GI & Abdominal Exam: Soft, Normal Bowel Sounds - Extremities Exam Additional comments: left medial abdi chronic scar - Neurological Exam Neurological Exam: Alert, Awake, Oriented x3 - Psychiatric Exam Psychiatric exam: Agitated. absent: Homicidal Ideation, Suicidal Ideation - Skin Skin Exam: Dry, Intact Assessment and Plan - Assessment and Plan (Free Text) Assessment: PE Pulmonary angiogram showed PE in left lower lobe pulmonary artery and branches, and questionable right lower lobe subsegmental pulmonary artery filling defects. No defect os ventricular strain. Vascular surgeon Dr. Diane consulted for evaluation of IVC filter due to questionable home med compliance, help appreciated. Patient was given Lovenox 90mg SC once in ED. Continue Lovenox 90mg SC q12H. LUCIAN negative x2. Patient for IVC filter on Wednesday, will continue Lovenox as per Dr. Diane. NPO after MN. DVT Pt said he has been compliant with Xarelto 15mg PO BID at home. PT/PTT/INR WNL. Dilaudid 0.1mg IVP q8H PRN. DM RISS, accuccheck. Continue home med Novolin 70/30 60U SC BID. Home med Metformin on hold. F/U A1c. CHF Continue home med Lasix 20mg PO BID, Lopressor 25mg PO BID and Lisionpril 10mg PO daily F/U ECHO. HTN Continue home med Lopressor 25mg PO BID and Lisionpril 10mg PO daily Hx of arrhythmia Continue home med Amiodarone 200mg PO daily. Hx of anxiety and depression Continue home med Xanax 1mg PO TID PRN, Cymbalta 60mg PO daily, Lyrica 75mg PO BID, Lexapro 10mg PO daily and Remeron 30mg PO HS. Psych Dr. Chamberlain consulted, help appreciated. Pt has capacity to make decisions. Back pain Continue home med Percocet 5mg 2 tab PO q6H PRN. Right shoulder pain Xray negative for acute etiologies. Code star Questionable fall. CT and knee xray negative for acute etiologies. Prophylactic measure SCD contraindicated due to DVT. Lovenox 90mg SC q12H Protonix 40mg PO daily.
[2016-12-13 16:14] VITALS: BP 133/73; PULSE 83; TEMP 97; O2SAT 98
--- NOTE | 2016-12-13 16:47 | CP.PCM.DIS ---
Provider - Provider Date of Admission: 12/12/16 13:29 Attending physician: Erasto Ray MD Primary care physician: Dr. Colby Consults: Dr. Diane Time Spent in preparation of Discharge (in minutes): 50 Hospital Course - Lab Results Lab Results: Most Recent Lab Values WBC 10.8 K/uL (4.8-10.8) 12/12/16 11:00 RBC 4.51 Mil/uL (4.40-5.90) 12/12/16 11:00 Hgb 11.8 g/dL (12.0-18.0) L 12/12/16 11:00 Hct 37.6 % (35.0-51.0) 12/12/16 11:00 MCV 83.5 fL (80.0-94.0) 12/12/16 11:00 MCH 26.1 pg (27.0-31.0) L 12/12/16 11:00 MCHC 31.3 g/dL (33.0-37.0) L 12/12/16 11:00 RDW 15.6 % (11.5-14.5) H 12/12/16 11:00 Plt Count 173 K/uL (130-400) 12/12/16 11:00 MPV 8.6 fL (7.2-11.7) 12/12/16 11:00 Neut % (Auto) 78.9 % (50.0-75.0) H 12/12/16 11:00 Lymph % (Auto) 13.6 % (20.0-40.0) L 12/12/16 11:00 Rolette % (Auto) 5.6 % (0.0-10.0) 12/12/16 11:00 Eos % (Auto) 1.4 % (0.0-4.0) 12/12/16 11:00 Baso % (Auto) 0.5 % (0.0-2.0) 12/12/16 11:00 Neut # 8.6 K/uL (1.8-7.0) H 12/12/16 11:00 Lymph # 1.5 K/uL (1.0-4.3) 12/12/16 11:00 Rolette # 0.6 K/uL (0.0-0.8) 12/12/16 11:00 Eos # 0.1 K/uL (0.0-0.7) 12/12/16 11:00 Baso # 0.1 K/uL (0.0-0.2) 12/12/16 11:00 PT 12.1 SECONDS (9.7-12.2) 12/12/16 11:24 INR 1.1 12/12/16 11:24 APTT 23 SECONDS (21-34) 12/12/16 11:24 Sodium 132 mmol/L (132-148) 12/12/16 11:00 Potassium 4.1 mmol/L (3.6-5.2) 12/12/16 11:00 Chloride 94 mmol/L (98-107) L 12/12/16 11:00 Carbon Dioxide 25 mmol/L (22-30) 12/12/16 11:00 Anion Gap 17 (10-20) 12/12/16 11:00 BUN 18 mg/dL (9-20) 12/12/16 11:00 Creatinine 0.9 MG/DL (0.8-1.5) 12/12/16 11:00 Est GFR ( Amer) > 60 12/12/16 11:00 Est GFR (Non-Af Amer) > 60 12/12/16 11:00 POC Glucose (mg/dL) 318 mg/dL (65-110) H 12/13/16 15:48 Random Glucose 178 mg/dL (75-110) H 12/12/16 11:00 Calcium 8.0 mg/dl (8.6-10.4) L 12/12/16 11:00 Total Bilirubin 0.2 mg/dL (0.2-1.3) 12/12/16 11:00 AST 26 U/L (17-59) 12/12/16 11:00 ALT 28 U/L (21-72) 12/12/16 11:00 Alkaline Phosphatase 69 U/L (38-126) 12/12/16 11:00 Total Creatine Kinase 54 U/L (55-170) L 12/12/16 22:27 CK-MB (Mass) 1.11 ng/mL (0.0-3.38) 12/12/16 22:27 Troponin I 0.0170 ng/mL (0.00-0.120) 12/12/16 11:00 Troponin I, Quant < 0.0120 ng/mL (0.00-0.120) 12/12/16 22:27 Total Protein 6.0 g/dL (6.3-8.3) L 12/12/16 11:00 Albumin 3.2 g/dL (3.5-5.0) L 12/12/16 11:00 Globulin 2.8 gm/dL (2.2-3.9) 12/12/16 11:00 Albumin/Globulin Ratio 1.2 (1.0-2.1) 12/12/16 11:00 - Hospital Course Hospital Course: 61M PMHx LLE DVT, DM, hepatitis C, CAD with CABG, HTN, anxiety presents with right shoulder pain for one day. Patient described pain as sudden onset and sharp with severe intensity in the right bicep area without radiation, and pain exacerbates with movement. Patient also complains chronic left leg pain secondary to DVT, as well as bilateral lower extremity edema. Per ED report, patient was given ASA 325mg in the field. Patient denied associated SOB, chest pain, palpitation, abdominal pain, n/v, fever, chills, trauma, numbness, tingling, constipation, diarrhea. Patient said he was diagnosed with hepatitis C 3 years ago but haven't follow up with any specialist. Patient also said he was compliant all of his medications at home. Lovenox 90mg SC given in ED and continued on the floor Pt seen and examined at bedside and hallway on the following day. Pt refused all blood tests and imaging studies this morning because he was not given Dilaudid. Pt complains severe pain with his LLE due to chronic DVT. Pt was placed on 1:1 after oje lo after RN found him laying on the floor, after failure to obtain Dilaudid. Pt also got aggressive with CP on the floor as well and Ativan 1mg IM was given. Joe carcamo was called after pt trying to leave AMA. Risks of leaving AMA was explained to pt at length. Psych Dr. Chamberlain was consulted and determined that patient has capacity to make decisions. Pt calmed down after Dilaudid 0.1mg IVP q8H started as per attending Dr. Ray. Pt was scheduled to have IVC filter placement on Wednesday as per Dr. Diane. Patient requested to leave AMA in the afternoon. Patient was agitated and states that "I just want to go home" even after Dilaudid was offered to him. Patient understood the risk of leaving AMA with active PE, including shortness of breath, respiratory failure and . Patient understood these risks and signed the document with CP witness. Script for Xarelto 15mg PO q12H #60 was written and given to patient. Patient was urged to continue Xarelto after leaving and follow up with PMD Dr. Colby as soon as possible. Patient also urged to follow up with Dr. Diane as well, information given. Patient instructed to return if feeling shortness of breath or palpitations. Patient verbalize understandings. Discharge Exam - Head Exam Head Exam: NORMAL INSPECTION, NORMOCEPHALIC - Eye Exam Eye Exam: Normal appearance Pupil Exam: NORMAL ACCOMODATION - Respiratory Exam Respiratory Exam: Clear to PA & Lateral, NORMAL BREATHING PATTERN - Cardiovascular Exam Cardiovascular Exam: REGULAR RHYTHM, +S1, +S2. absent: Gallop, Rubs - GI/Abdominal Exam GI & Abdominal Exam: Normal Bowel Sounds, Soft - Extremities Exam Extremities exam: calf tenderness, pedal edema - Neurological Exam Neurological exam: Alert, Oriented x3 - Psychiatric Exam Psychiatric exam: Agitated - Skin Additional comments: left medial leg chronic scar Discharge Plan - Follow Up Plan Condition: STABLE Disposition: AGAINST MEDICAL ADVICE Additional Instructions: FOLLOW UP WITH YOUR DOCTOR IN 1-2 DAYS YOU ARE SIGNING OUT AGAINST MEDICAL ADVICE! YOU RISK WORSENING OF YOUR CURRENT CONDITION OR POSSIBLY EVEN ! RETURN TO ER IF YOU HAVE CONCERNING SYMPTOMS Referrals: Lyle Rivas [Staff Provider] -
== END 2016-12-13 16:45 | disposition left against medical advice (07) | DRG 176 ==
LOC: C.ER 10:00 → C.9E 13:29 → C.6T 14:11
PROVIDERS: ADMIT Internal Medicine Nephrology; ATTEND Internal Medicine Nephrology
DX: I26.99 Other pulmonary embolism without acute cor pulmonale (principal); I82.502 Chronic embolism and thrombosis of unspecified deep veins of left lower extremity; I11.0 Hypertensive heart disease with heart failure; I50.9 Heart failure, unspecified; E11.9 Type 2 diabetes mellitus without complications; F32.9 Major depressive disorder, single episode, unspecified; F41.1 Generalized anxiety disorder; B18.2 Chronic viral hepatitis C; M54.9 Dorsalgia, unspecified; G89.29 Other chronic pain; I25.10 Atherosclerotic heart disease of native coronary artery without angina pectoris; Z79.01 Long term (current) use of anticoagulants; Z79.4 Long term (current) use of insulin; Z95.1 Presence of aortocoronary bypass graft

== ENCOUNTER 2016-12-15 10:34 | Emergency (ER) | payer MEDICARE ==
[2016-12-15 10:44] VITALS: BMI 33.9
[2016-12-15 10:54] VITALS: BP 131/62; PULSE 83; TEMP 98.2; O2SAT 97
--- NOTE | 2016-12-15 11:13 | C.PDOC ---
History Of Present Illness 61 year old male presents to the ED via EMS due to overdosing on heroin. As per EMS, patient was nooding, and was given Narcan in the field. He has been agitated since. Previous charts show the patient was recently admitted and signed AMA yesterday. He has no complaints at this time but keeps yelling that he is hungry and wants to eat, and leave. Time Seen by Provider: 12/15/16 11:08 Chief Complaint (Nursing): Substance Abuse History Per: Patient, EMS Onset/Duration Of Symptoms: Hrs Current Symptoms Are (Timing): Still Present Suicide/Self Injury Attempted (Context): None Past Medical History Reviewed: Historical Data, Nursing Documentation, Vital Signs Vital Signs: Last Vital Signs Temp 98.2 F 12/15/16 10:53 Pulse 83 12/15/16 10:53 Resp 18 12/15/16 11:21 BP 131/62 12/15/16 10:53 Pulse Ox 97 12/15/16 12:55 - Medical History PMH: Anxiety, Asthma, CAD, Cardia Arrhythmia, Depression, Diabetes (type I), Hepatitis (C), HTN, Hypercholesterolemia, Chronic Pain Surgical History: CABG (X2,4 years ago), Cholecystectomy - [facility] Procedures ESOPHAGOGASTRODUODENOSCOPY [EGD] W/CLOSED BIOPSY (01/28/04) INSPECTION OF HEPATOBILIARY DUCT, ENDO (11/25/16) Family History: States: Diabetes, Hypertension - Social History Hx Tobacco Use: No Hx Alcohol Use: No Hx Substance Use: No - Immunization History Hx Tetanus Toxoid Vaccination: Yes Hx Influenza Vaccination: Yes (2015) Hx Pneumococcal Vaccination: Yes Review Of Systems Except As Marked, All Systems Reviewed And Found Negative. Constitutional: Negative for: Fever, Chills Cardiovascular: Negative for: Chest Pain Respiratory: Negative for: Shortness of Breath Gastrointestinal: Negative for: Vomiting, Abdominal Pain Physical Exam - Physical Exam Appears: Non-toxic, No Acute Distress Skin: Normal Color, Warm, Dry Head: Atraumatic, Normacephalic Eye(s): bilateral: Normal Inspection Oral Mucosa: Moist Chest: Symmetrical Cardiovascular: Rhythm Regular, No Murmur Respiratory: Normal Breath Sounds, No Accessory Muscle Use, No Rales, No Rhonchi , No Wheezing Extremity: Normal ROM Neurological/Psych: Oriented x3, Normal Speech ED Course And Treatment O2 Sat by Pulse Oximetry: 97 (Room air) Pulse Ox Interpretation: Normal Medical Decision Making Medical Decision Making: Patient received Narcan over an hour ago. At present time patient has normal vitals and respiration and is stable for discharge. Disposition - Disposition Disposition: HOME/ ROUTINE Disposition Time: 11:10 Condition: FAIR Forms: General Discharge Instructions - Clinical Impression Clinical Impression: Narcotic overdose - Scribe Statement The provider has reviewed the documentation as recorded by the Scribe Tasia Zhong. Provider Attestation: All medical record entries made by the Scribe were at my direction and personally dictated by me. I have reviewed the chart and agree that the record accurately reflects my personal performance of the history, physical exam, medical decision making, and the department course for this patient. I have also personally directed, reviewed, and agree with the discharge instructions and disposition.
[2016-12-15 11:22] VITALS: RESP 18
== END 2016-12-15 11:21 | disposition home or self-care (01) ==
LOC: C.ER 10:34
DX: T40.0X1A Poisoning by opium, accidental (unintentional), initial encounter (principal)

== ENCOUNTER 2016-12-15 16:00 | Emergency (ER) | payer MEDICARE ==
[2016-12-15 16:01] VITALS: BMI 33.9
[2016-12-15 16:21] VITALS: BP 103/71; PULSE 88; RESP 15; TEMP 98.5; O2SAT 93
--- NOTE | 2016-12-15 17:44 | C.PDOC ---
History Of Present Illness 61 year old male presents to the ED via EMS after a passerby saw him sleeping outside. EMS called and brought pt to ED against his request. Patient was seen in the ED earlier today and sniffed more heroin after he was discharged. He ambulated into the ED with a steady gait and has no physical complaints. Time Seen by Provider: 12/15/16 17:38 Chief Complaint (Nursing): Substance Abuse History Per: Patient, EMS History/Exam Limitations: no limitations Onset/Duration Of Symptoms: Hrs Current Symptoms Are (Timing): Still Present Suicide/Self Injury Attempted (Context): None Modifying Factor(s): Other (Heroin) Associated Symptoms: denies: Suicidal Thoughts, Suicidal Plan Past Medical History Reviewed: Historical Data, Nursing Documentation, Vital Signs Vital Signs: Last Vital Signs Temp 98.5 F 12/15/16 16:20 Pulse 88 12/15/16 16:20 Resp 15 12/15/16 16:20 BP 103/71 12/15/16 16:20 Pulse Ox 93 L 12/15/16 18:50 - Medical History PMH: Anxiety, Asthma, CAD, Cardia Arrhythmia, Depression, Diabetes (type I), Hepatitis (C), HTN, Hypercholesterolemia, Chronic Pain Surgical History: CABG (X2,4 years ago), Cholecystectomy - [facility] Procedures ESOPHAGOGASTRODUODENOSCOPY [EGD] W/CLOSED BIOPSY (01/28/04) INSPECTION OF HEPATOBILIARY DUCT, ENDO (11/25/16) Family History: States: Diabetes, Hypertension - Social History Hx Tobacco Use: No Hx Alcohol Use: No Hx Substance Use: No - Immunization History Hx Tetanus Toxoid Vaccination: Yes Hx Influenza Vaccination: Yes (2016) Hx Pneumococcal Vaccination: Yes Review Of Systems Except As Marked, All Systems Reviewed And Found Negative. Constitutional: Positive for: Other (+Heroin use). Negative for: Fever, Chills Cardiovascular: Negative for: Chest Pain Respiratory: Negative for: Cough, Shortness of Breath Gastrointestinal: Negative for: Vomiting Physical Exam - Physical Exam Appears: Non-toxic, No Acute Distress Skin: Normal Color, Warm, Dry Head: Atraumatic, Normacephalic Oral Mucosa: Moist Chest: Symmetrical Cardiovascular: Rhythm Regular Respiratory: Normal Breath Sounds, No Accessory Muscle Use Extremity: Normal ROM Neurological/Psych: Oriented x3, Normal Speech, Normal Cognition Gait: Steady ED Course And Treatment O2 Sat by Pulse Oximetry: 93 Progress Note: Patient declined detox or any other form of intervention. Finger stick: 400. Patient was stable and discharged. Medical Decision Making Medical Decision Making: Again declined detox or other intervention Disposition Counseled Patient/Family Regarding: Diagnosis, Need For Followup - Disposition Referrals: Lyle Rivas [Staff Provider] - Disposition: HOME/ ROUTINE Disposition Time: 17:42 Condition: FAIR Forms: General Discharge Instructions - Clinical Impression Clinical Impression: Drug dependence - Scribe Statement The provider has reviewed the documentation as recorded by the Scribe Tasia Zhong. Provider Attestation: All medical record entries made by the Scribe were at my direction and personally dictated by me. I have reviewed the chart and agree that the record accurately reflects my personal performance of the history, physical exam, medical decision making, and the department course for this patient. I have also personally directed, reviewed, and agree with the discharge instructions and disposition.
== END 2016-12-15 18:22 | disposition home or self-care (01) ==
LOC: C.ER 16:00
DX: F11.20 Opioid dependence, uncomplicated (principal)

== ENCOUNTER 2016-12-20 13:06 | Emergency (ER) | payer MEDICARE ==
[2016-12-20 13:06] VITALS: BMI 33.9
[2016-12-20 13:25] VITALS: TEMP 98.3
[2016-12-20 13:55] LABS: BASO % 0.5 % (0.0-2.0); EOS % 0.6 % (0.0-4.0); HEMATOCRIT 39.2 % (35.0-51.0); LYMPH # 1.3 K/uL (1.0-4.3); MEAN CORPUSCULAR HEMOGLOBIN 26.1 pg (27.0-31.0); MEAN CORPUSCULAR HGB CONC 31.5 g/dL (33.0-37.0); MEAN PLATELET VOLUME 8.2 fL (7.2-11.7); MONO # 0.3 K/uL (0.0-0.8); MONO % 4.1 % (0.0-10.0); RED CELL DISTRIBUTION WIDTH 15.4 % (11.5-14.5); WHITE BLOOD COUNT 8.3 K/uL (4.8-10.8)
[2016-12-20 14:03] LABS: CHLORIDE 92 mmol/L (98-107); SODIUM 135 mmol/L (132-148)
[2016-12-20 14:04] LABS: POTASSIUM 5.4 mmol/L (3.6-5.2)
[2016-12-20 14:06] LABS: ALB/GLOB RATIO 1.2 (1.0-2.1); ALKALINE PHOSPHATASE 69 U/L (38-126); AST/SGOT 117 U/L (17-59); BILIRUBIN,TOTAL 0.3 mg/dL (0.2-1.3); CARBON DIOXIDE 31 mmol/L (22-30); GFR AFRICAN-AMERICAN > 60; TOTAL PROTEIN 7.3 g/dL (6.3-8.3)
[2016-12-20 14:07] LABS: ALT/SGPT 63 U/L (21-72); BLOOD UREA NITROGEN 14 mg/dL (9-20); CALCIUM 8.9 mg/dl (8.6-10.4); GLUCOSE,RANDOM 274 mg/dL (75-110)
[2016-12-20 14:45] VITALS: BP 136/67; PULSE 74; RESP 18; O2SAT 97
--- NOTE | 2016-12-20 15:01 | RAD ---
PROCEDURE: CHEST RADIOGRAPH, 1 VIEW HISTORY: chest pain COMPARISON: Comparison is made to 12/12/2016 FINDINGS: LUNGS: No significant interval change in the lungs. PLEURA: No pneumothorax or pleural fluid seen. CARDIOVASCULAR: Normal. OSSEOUS STRUCTURES: No significant abnormalities. VISUALIZED UPPER ABDOMEN: Normal. OTHER FINDINGS: None. IMPRESSION: No significant interval change.
--- NOTE | 2016-12-25 07:16 | C.PDOC ---
History Of Present Illness 61 year old male presents to the emergency room stating that he is having sharp chest pain which start this morning. Patient denies SOB, abd pain, n/v/c/d, fever or cough. Patient admits to using heroin this morning. Currently in the ED, patient is pain-free. Patient poor historian on many questions. Chief Complaint (Nursing): Chest Pain History Per: Patient, EMS Current Symptoms Are (Timing): Gone Severity: Mild Quality: Sharp Associated Symptoms: denies: Nausea, Dyspnea, Diaphoresis, Syncope Recent travel outside of the [place]: No Additional History Per: Prior Records Past Medical History Vital Signs: Last Vital Signs Temp 98.3 F 12/20/16 13:24 Pulse 74 12/20/16 14:45 Resp 18 12/20/16 14:45 BP 136/67 12/20/16 14:45 Pulse Ox 97 12/25/16 07:15 - Medical History PMH: Anxiety, Asthma, CAD, Cardia Arrhythmia, Depression, Diabetes (type I), Hepatitis (C), HTN, Hypercholesterolemia, Chronic Pain Surgical History: CABG (X2,4 years ago), Cholecystectomy - [facility] Procedures ESOPHAGOGASTRODUODENOSCOPY [EGD] W/CLOSED BIOPSY (01/28/04) INSPECTION OF HEPATOBILIARY DUCT, ENDO (11/25/16) Family History: States: Unknown Family Hx, Diabetes, Hypertension - Social History Hx Tobacco Use: No Hx Alcohol Use: No Hx Substance Use: No - Immunization History Hx Tetanus Toxoid Vaccination: Yes Hx Influenza Vaccination: Yes (2016) Hx Pneumococcal Vaccination: Yes Review Of Systems Except As Marked, All Systems Reviewed And Found Negative. Cardiovascular: Positive for: Chest Pain Physical Exam - Physical Exam Appears: Well, Unkempt Skin: Normal Color Head: Atraumatic, Normacephalic Eye(s): bilateral: Normal Inspection, PERRL, EOMI Ear(s): Bilateral: Normal Nose: Normal, No Flaring Oral Mucosa: Moist Tongue: Normal Appearing Lips: Normal Appearing Throat: Normal Neck: Normal, Normal ROM Lymphatic: Normal Exam Chest: Symmetrical Cardiovascular: Rhythm Regular Respiratory: Normal Breath Sounds Gastrointestinal/Abdominal: Normal Exam, Bowel Sounds, Soft, No Tenderness, No Distention, No Guarding Rectal: Deferred Pulses: Left Carotid: Normal, Right Carotid: Normal, Left Brachial: Normal, Right Brachial: Normal, Left Radial: Normal, Right Radial: Normal DTR: Bicep (R): 2+, Bicep (L): 2+, Tricep (R): 2+, Tricep (L): 2+, Knee (R): 2+ , Knee (L): 2+, Ankle (R): 2+, Ankle (L): 2+ Neurological/Psych: Oriented x3, Normal Speech Disoriented To: Person, Place, Time, Situation Gait: Steady ED Course And Treatment - Laboratory Results Result Diagrams: 12/20/16 13:49 12/20/16 13:49 ECG: Interpreted By Md ECG Rhythm: Sinus Rhythm ECG Interpretation: Normal O2 Sat by Pulse Oximetry: 97 Pulse Ox Interpretation: Normal - Radiology CXR: Interpreted by Me CXR Interpretation: Yes: No Acute Disease Reassessment Condition: Unchanged Medical Decision Making Medical Decision Making: Patient did not want to stay in hospital for further evaluation or treatment. Patient understands risks, including possible . Patient understands all risks and signed AMA formed, witnessed by myself and nurse. Disposition - Disposition Referrals: [facility] Tania Basurto, [Non-Staff] - Disposition: AGAINST MEDICAL ADVICE Disposition Time: 15:00 Condition: UNKNOWN Additional Instructions: Thank you for letting us take care of you today. Your provider was Dr. Boucher. You were treated for chest pain. The emergency medical care you received today was directed at your acute symptoms. If you were prescribed any medication, please fill it and take as directed. It may take several days for your symptoms to resolve. Return to the Emergency Department if your symptoms worsen, do not improve, or if you have any other problems. Please contact your doctor or call one of the physicians/clinics you have been referred to that are listed on the Patient Visit Information form that is included in your discharge packet. Bring any paperwork you were given at discharge with you along with any medications you are taking to your follow up visit. Our treatment cannot replace ongoing medical care by a primary care provider (PCP) outside of the emergency department. Thank you for allowing the [facility] team to be part of your care today. YOU SIGNED OUT AMA FROM THE HOSPITAL. FOLLOW UP WITH YOUR DOCTOR TOMORROW MORNING. CONTINUE ALL MEDICATIONS THAT YOU ARE PRESCRIBED. RETURN TO THE EMERGENCY ROOM FOR ANY CONCERNS. Instructions: Chest Pain (ED) - Clinical Impression Clinical Impression: Chest pain
== END 2016-12-20 14:50 | disposition left against medical advice (07) ==
LOC: CANPREER → C.ER 13:06
DX: R07.9 Chest pain, unspecified (principal)

== ENCOUNTER 2017-01-03 11:56 | Observation (INO) | payer MEDICAID, MEDICARE ==
[2017-01-03 11:56] VITALS: BMI 33.9
[2017-01-03 12:13] VITALS: PULSE 73; TEMP 98.8; O2SAT 100
[2017-01-03] MEDS ORDERED: Sodium Chloride 0.9% 1,000 ML IV ONE (12:14)
[2017-01-03] MEDS ORDERED: Sodium Chloride 0.9% 1,000 ML ONE (12:26)
[2017-01-03 12:46] LABS: BASO % 0.4 % (0.0-2.0); EOS % 0.3 % (0.0-4.0); HEMATOCRIT 38.2 % (35.0-51.0); LYMPH % 10.4 % (20.0-40.0); MEAN CELL VOLUME 82.9 fL (80.0-94.0); MEAN CORPUSCULAR HEMOGLOBIN 26.1 pg (27.0-31.0); MEAN CORPUSCULAR HGB CONC 31.4 g/dL (33.0-37.0); MEAN PLATELET VOLUME 8.4 fL (7.2-11.7); MONO # 0.3 K/uL (0.0-0.8); MONO % 3.4 % (0.0-10.0); RED CELL DISTRIBUTION WIDTH 15.7 % (11.5-14.5); WHITE BLOOD COUNT 9.7 K/uL (4.8-10.8)
[2017-01-03 13:00] LABS: CHLORIDE 102 mmol/L (98-107); SODIUM 139 mmol/L (132-148)
[2017-01-03 13:01] LABS: POTASSIUM 3.9 mmol/L (3.6-5.2)
[2017-01-03 13:03] LABS: ALB/GLOB RATIO 1.3 (1.0-2.1); ALKALINE PHOSPHATASE 61 U/L (38-126); ALT/SGPT 23 U/L (21-72); AST/SGOT 18 U/L (17-59); BILIRUBIN,TOTAL 0.2 mg/dL (0.2-1.3); BLOOD UREA NITROGEN 14 mg/dL (9-20); CALCIUM 8.8 mg/dl (8.6-10.4); CARBON DIOXIDE 24 mmol/L (22-30); GFR AFRICAN-AMERICAN > 60; GLUCOSE,RANDOM 67 mg/dL (75-110); TOTAL PROTEIN 7.1 g/dL (6.3-8.3)
--- NOTE | 2017-01-03 13:06 | RAD ---
HISTORY: pain COMPARISON: Chest x-ray performed 12/20/16 TECHNIQUE: Chest, one view. FINDINGS: LUNGS: No focal consolidation. Please note that chest x-ray has limited sensitivity for the detection of pulmonary masses. PLEURA: No significant pleural effusion identified. No definite pneumothorax . CARDIOVASCULAR: Median sternotomy wires. Heart size appears top normal. OSSEOUS STRUCTURES: Degenerative changes. VISUALIZED UPPER ABDOMEN: Unremarkable. OTHER FINDINGS: None. IMPRESSION: No focal consolidation, significant pleural effusion, or definite pneumothorax identified.
--- NOTE | 2017-01-03 15:11 | C.PDOC ---
History Of Present Illness The patient, a 61 y/o male, is brought to the ED by EMS for evaluation of opiod overdose prior to arrival. As per EMS, patient received 2mg of Narcan intranasally in field. At present time, patient is awake and is actively vomiting, sitting on commode. Otherwise, patient denies suicidal/homicidal ideation and has no other complaints at this time. Previous ED records review, multiple visit to ED due to narcotic overdose in past. Time Seen by Provider: 01/03/17 12:00 Chief Complaint (Nursing): Substance Abuse History Per: Patient, EMS History/Exam Limitations: intoxication Onset/Duration Of Symptoms: Hrs Current Symptoms Are (Timing): Still Present Suicide/Self Injury Attempted (Context): None Modifying Factor(s): Other (opiod) Associated Symptoms: denies: Suicidal Thoughts, Suicidal Plan Involuntary Hold By: None Recent travel outside of the [place]: No Additional History Per: Patient Past Medical History Reviewed: Historical Data, Nursing Documentation, Vital Signs Vital Signs: Last Vital Signs Temp 98.8 F 01/03/17 12:05 Pulse 73 01/03/17 16:17 Resp 20 01/03/17 16:17 BP 132/62 01/03/17 16:17 Pulse Ox 100 01/03/17 16:34 - Medical History PMH: Anxiety, Asthma, CAD, Cardia Arrhythmia, Depression, Diabetes (type I), Hepatitis (C), HTN, Hypercholesterolemia, Chronic Pain Surgical History: CABG (X2,4 years ago), Cholecystectomy - [facility] Procedures ESOPHAGOGASTRODUODENOSCOPY [EGD] W/CLOSED BIOPSY (01/28/04) INSPECTION OF HEPATOBILIARY DUCT, ENDO (11/25/16) Family History: States: Diabetes, Hypertension - Social History Hx Tobacco Use: No Hx Alcohol Use: No Hx Substance Use: Yes - Immunization History Hx Tetanus Toxoid Vaccination: Yes Hx Influenza Vaccination: Yes (2016) Hx Pneumococcal Vaccination: Yes Review Of Systems Except As Marked, All Systems Reviewed And Found Negative. Gastrointestinal: Positive for: Vomiting, Diarrhea Psych: Positive for: Other (+opioid overdose ). Negative for: Suicidal ideation Physical Exam - Physical Exam Appears: Other (mild distress ) Skin: Normal Color, Warm, Dry Head: Atraumatic, Normacephalic Eye(s): bilateral: Normal Inspection, PERRL, EOMI Nose: Normal Oral Mucosa: Moist, No Drooling, No Trismus Tongue: Normal Appearing, No Lesions Lips: Normal Appearing Neck: Normal, Normal ROM, No Midline Cervical Tenderness, No Paracervical Tenderness, No Step Off Deformity, Supple Chest: Symmetrical, No Deformity, No Tenderness Cardiovascular: Rhythm Regular, No Murmur Respiratory: Normal Breath Sounds, No Rales, No Rhonchi, No Wheezing Gastrointestinal/Abdominal: Soft, No Tenderness, No Distention, No Guarding, No Rebound Back: Normal Inspection, No Vertebral Tenderness Extremity: Normal ROM, No Pedal Edema, No Calf Tenderness, Capillary Refill ( less than 2 seconds ), No Deformity Neurological/Psych: Oriented x3, Normal Speech, Normal Cognition, Normal Motor, Normal Sensation, Normal Reflexes Gait: Steady ED Course And Treatment - Laboratory Results Result Diagrams: 01/03/17 12:38 01/03/17 12:38 Lab Interpretation: No Acute Changes ECG: Interpreted By Me, Viewed By Me (and ED attending) ECG Rhythm: Sinus Rhythm Interpretation Of ECG: SR@64/min w/1st degree AV block, Qwave in III, T wave inversion in AVL,V2-V6. Compare to old ekg, appears similar, no new acute changes. O2 Sat by Pulse Oximetry: 100 (on RA) Pulse Ox Interpretation: Normal - Other Rad CXR X-Ray: Interpreted by Me, Viewed By Me, Read By Radiologist Interpretation: Accession No. : [id number]. Patient Name / ID : TIKA NUNEZ / [id number]. Exam Date : 01/03/2017 12:26:46 ( Approved ). Study Comment : Sex / Age : M / 61Y. Creator : Mag Mcguire MD. Dictator : Mag Mcguire MD. Mixer Blender : Document Clerk : Mag Mcguire MD. Approver2 : Report Date : 01/03/2017 13:05:16. My Comment : . HISTORY: pain. COMPARISON: Chest x-ray performed 12/20/16. TECHNIQUE: Chest, one view. FINDINGS: LUNGS: No focal consolidation. Please note that chest x-ray has limited sensitivity for the detection of pulmonary masses. PLEURA: No significant pleural effusion identified. No definite pneumothorax . CARDIOVASCULAR: Median sternotomy wires. Heart size appears top normal. OSSEOUS STRUCTURES: Degenerative changes. VISUALIZED UPPER ABDOMEN: Unremarkable. OTHER FINDINGS: None. IMPRESSION: No focal consolidation, significant pleural effusion, or definite pneumothorax identified. Progress Note: Labs, EKG, and CXR ordered and reviewed. Patient received Pepcid IV, Zofran IV, and IV Fluids. ED OBSERVATION Discharge: Yes Date of observation admission: 01/03/17 Time of observation admission: 12:20 - Observation admission statement Patient is being placed in observation because:: Overdose, vomiting - Goals of Observation Goals of observation are:: Diagnostics, imaging, sx tx, re-evaluation, sobriety - Progress Note Progress Note: 01/03/17 At 13:10, pt resting comfortably in bed, not in any apparent distress. No vomiting. Afebrile, hemodynamicaly stable. Non-toxic. ABd: Benign. Neurologicaly intact. At 15:55, pt is AAO#3, not in any apparent distress. Pt tolerate PO well in ED. Abd: benign, (-) guarding, (-) rebound. Back: (-) CVA tenderness. Neurologicaly intact. Pt request detox now for heroin abuse. Pt denies depression, suicidal or homocidal ideation. At 16:11, diagnostics, imaging review and appears at baseline. Case discussed with workers compensation manager, no available detox bed at present time. Pt was given info to call detox tomorrow for availability. results review and discussed with pt. Ref. to F/U with PMD, Detox in 1-2 days for re-eval. return if any new changes. Disposition Counseled Patient/Family Regarding: Studies Performed, Diagnosis, Need For Followup - Disposition Disposition: HOME/ ROUTINE Disposition Time: 16:13 Condition: STABLE - Clinical Impression Clinical Impression: Opioid abuse - PA / OUTSIDE CUTTER / Resident Statement MD/DO has reviewed & agrees with the documentation as recorded. - Scribe Statement The provider has reviewed the documentation as recorded by the Scribe (Theodora Negro) All medical record entries made by the Scribe were at my direction and personally dictated by me. I have reviewed the chart and agree that the record accurately reflects my personal performance of the history, physical exam, medical decision making, and the department course for this patient. I have also personally directed, reviewed, and agree with the discharge instructions and disposition.
[2017-01-03 16:18] VITALS: BP 132/62; RESP 20
--- NOTE | 2017-01-05 07:59 | CARD ---
APPROVED REPORT EKG Measurement Heart [id number] NM [id number] <Conclusion> Sinus rhythm with 1st degree AV block with occasional AV dual-paced complexes Possible Inferior infarct, age undetermined Abnormal ECG
== END 2017-01-03 16:12 | disposition home or self-care (01) ==
LOC: C.ER 11:56 → C.9OBSV 12:20
PROVIDERS: ADMIT Emergency Medicine; ATTEND Emergency Medicine
DX: T40.601A Poisoning by unspecified narcotics, accidental (unintentional), initial encounter (principal); R11.2 Nausea with vomiting, unspecified; Y92.9 Unspecified place or not applicable; J45.909 Unspecified asthma, uncomplicated; I25.10 Atherosclerotic heart disease of native coronary artery without angina pectoris; I10 Essential (primary) hypertension; E78.00 Pure hypercholesterolemia, unspecified; E10.9 Type 1 diabetes mellitus without complications; F32.9 Major depressive disorder, single episode, unspecified; F41.9 Anxiety disorder, unspecified; Z95.1 Presence of aortocoronary bypass graft
CPT/HCPCS: 71010; 80053; 83690; 85025; 96360; 96374; G0378; G0480; J2405; J7040

== ENCOUNTER 2017-01-06 05:28 | Emergency (ER) | payer MEDICARE ==
[2017-01-06 05:29] VITALS: BMI 33.9
[2017-01-06 05:48] VITALS: RESP 18
[2017-01-06 06:43] LABS: BASO # 0.1 K/uL (0.0-0.2); BASO % 0.8 % (0.0-2.0); EOS % 0.3 % (0.0-4.0); LYMPH # 1.6 K/uL (1.0-4.3); LYMPH % 13.4 % (20.0-40.0); MEAN CORPUSCULAR HGB CONC 31.7 g/dL (33.0-37.0); MEAN PLATELET VOLUME 8.7 fL (7.2-11.7); MONO # 0.4 K/uL (0.0-0.8); MONO % 3.8 % (0.0-10.0); RED CELL DISTRIBUTION WIDTH 15.4 % (11.5-14.5); WHITE BLOOD COUNT 11.6 K/uL (4.8-10.8)
--- NOTE | 2017-01-06 06:45 | C.PDOC ---
Time Seen by Provider: 01/06/17 05:56 Chief Complaint (Nursing): Abdominal Pain History Per: Patient Onset/Duration Of Symptoms: Hrs Current Symptoms Are (Timing): Still Present Severity: Moderate Location Of Pain/Discomfort: Diffuse, Epigastric Quality Of Discomfort: Unable To Describe, Burning, "Pain" Alleviating Factors: None Additional History Per: Prior Records Past Medical History Reviewed: Historical Data, Nursing Documentation, Vital Signs Vital Signs: Last Vital Signs Temp 99 F 01/06/17 05:42 Pulse 68 01/06/17 05:42 Resp 18 01/06/17 05:42 BP 168/77 H 01/06/17 05:42 Pulse Ox 98 01/06/17 06:45 - Medical History PMH: Anxiety, Asthma, CAD, Cardia Arrhythmia, Depression, Diabetes (type I), Hepatitis (C), HTN, Hypercholesterolemia, Chronic Pain Surgical History: CABG (X2,4 years ago), Cholecystectomy - [facility] Procedures ESOPHAGOGASTRODUODENOSCOPY [EGD] W/CLOSED BIOPSY (01/28/04) INSPECTION OF HEPATOBILIARY DUCT, ENDO (11/25/16) Family History: States: Unknown Family Hx, Diabetes, Hypertension - Social History Hx Tobacco Use: No Hx Alcohol Use: No Hx Substance Use: Yes (Opiates) - Immunization History Hx Tetanus Toxoid Vaccination: Yes Hx Influenza Vaccination: Yes (2016) Hx Pneumococcal Vaccination: Yes Review Of Systems Except As Marked, All Systems Reviewed And Found Negative. Constitutional: Negative for: Fever Cardiovascular: Negative for: Chest Pain Respiratory: Negative for: Shortness of Breath Gastrointestinal: Positive for: Abdominal Pain. Negative for: Vomiting Genitourinary: Positive for: Frequency Musculoskeletal: Negative for: Neck Pain Neurological: Negative for: Weakness, Numbness, Seizures, Altered Mental Status Physical Exam - Physical Exam Appears: No Acute Distress Skin: Normal Color, Warm, Dry Head: Atraumatic, Normacephalic Eye(s): bilateral: PERRL, EOMI Neck: Normal ROM, Supple Cardiovascular: Rhythm Regular Respiratory: Normal Breath Sounds, No Accessory Muscle Use Gastrointestinal/Abdominal: Soft, Tenderness (nonspecific) Back: No CVA Tenderness Extremity: Normal ROM Neurological/Psych: Oriented x3, Normal Motor, Normal Sensation ED Course And Treatment - Laboratory Results Result Diagrams: 01/06/17 06:33 01/06/17 06:33 O2 Sat by Pulse Oximetry: 98 Pulse Ox Interpretation: Normal Disposition - Disposition Disposition Time: 07:00 Condition: FAIR - Clinical Impression Clinical Impression: Abdominal pain Physician Patient Turnover Patient Signed Over To: Morgan Boucher DO Handoff Comments: to f/up U/A and reassess pt after med.
[2017-01-06 06:47] LABS: CHLORIDE 99 mmol/L (98-107); POTASSIUM 3.6 mmol/L (3.6-5.2); SODIUM 138 mmol/L (132-148)
[2017-01-06 06:49] LABS: AST/SGOT 23 U/L (17-59); BILIRUBIN,TOTAL 0.7 mg/dL (0.2-1.3); CARBON DIOXIDE 26 mmol/L (22-30); GFR AFRICAN-AMERICAN > 60
[2017-01-06 06:50] LABS: ALB/GLOB RATIO 1.2 (1.0-2.1); ALKALINE PHOSPHATASE 67 U/L (38-126); ALT/SGPT 32 U/L (21-72); BLOOD UREA NITROGEN 14 mg/dL (9-20); CALCIUM 9.4 mg/dl (8.6-10.4); GLUCOSE,RANDOM 73 mg/dL (75-110); TOTAL PROTEIN 7.2 g/dL (6.3-8.3)
[2017-01-06 06:51] LABS: ALCOHOL SERUM < 10 mg/dl (0-10)
[2017-01-06 07:48] VITALS: BP 150/77; PULSE 73; TEMP 98.3; O2SAT 96
== END 2017-01-06 07:36 | disposition home or self-care (01) ==
LOC: SUPCPDRO 05:28 → C.ER 05:28
DX: R10.13 Epigastric pain (principal)
CPT/HCPCS: 80053; 83690; 85025; 96374; 99285; C9113; G0480

== ENCOUNTER 2017-01-08 19:04 | Emergency (ER) | payer MEDICARE ==
[2017-01-08] MEDS ORDERED: Naloxone 0.4 mg/ml Inj (Adult) ONE (19:11)
[2017-01-08 19:30] VITALS: BMI 31.5
[2017-01-08 19:44] VITALS: TEMP 97.5
[2017-01-08 20:01] LABS: BASO % 0.6 % (0.0-2.0); EOS # 0.1 K/uL (0.0-0.7); EOS % 1.3 % (0.0-4.0); HEMATOCRIT 36.4 % (35.0-51.0); LYMPH % 23.6 % (20.0-40.0); MEAN CELL VOLUME 82.7 fL (80.0-94.0); MEAN CORPUSCULAR HEMOGLOBIN 25.9 pg (27.0-31.0); MEAN CORPUSCULAR HGB CONC 31.3 g/dL (33.0-37.0); MEAN PLATELET VOLUME 8.7 fL (7.2-11.7); MONO # 0.4 K/uL (0.0-0.8); MONO % 4.4 % (0.0-10.0); RED CELL DISTRIBUTION WIDTH 15.1 % (11.5-14.5); WHITE BLOOD COUNT 8.5 K/uL (4.8-10.8)
[2017-01-08 20:07] LABS: CHLORIDE 96 mmol/L (98-107); SODIUM 134 mmol/L (132-148)
[2017-01-08 20:08] LABS: POTASSIUM 3.7 mmol/L (3.6-5.2)
[2017-01-08 20:10] LABS: ALB/GLOB RATIO 1.3 (1.0-2.1); ALKALINE PHOSPHATASE 69 U/L (38-126); ALT/SGPT 31 U/L (21-72); AST/SGOT 31 U/L (17-59); BILIRUBIN,TOTAL 0.3 mg/dL (0.2-1.3); BLOOD UREA NITROGEN 13 mg/dL (9-20); CARBON DIOXIDE 27 mmol/L (22-30); GFR AFRICAN-AMERICAN > 60; GLUCOSE,RANDOM 245 mg/dL (75-110); TOTAL PROTEIN 7.2 g/dL (6.3-8.3)
[2017-01-08 20:11] LABS: CALCIUM 8.5 mg/dl (8.6-10.4)
[2017-01-08 20:23] LABS: INR 1.4
[2017-01-08 20:30] VITALS: RESP 19; O2SAT 99
[2017-01-08 20:31] VITALS: BP 149/66; PULSE 76
--- NOTE | 2017-01-08 21:24 | C.PDOC ---
History Of Present Illness 61 year old male was brought to the ED by EMS for a narcotics overdose in the field. He was given glucose in the field with no improvement and found with approximately 100 percocet tablets in a bottle in his pants pocket and refusing to surrender them. Patient saw his neurologist today and given renewal prescription for 120 percocets Admits to taking at least 4 percocets today and is sharing with a friend. Upon arrival patient was obtunded with pin point pupils arousable only to painful stimulus. Time Seen by Provider: 01/08/17 19:16 Chief Complaint (Nursing): Altered Mental Status History Per: EMS History/Exam Limitations: other (obtunded, narcotic overdose) Onset/Duration Of Symptoms: Hrs Current Symptoms Are (Timing): Still Present Past Medical History Reviewed: Historical Data, Nursing Documentation, Vital Signs Vital Signs: Last Vital Signs Temp 97.5 F L 01/08/17 19:31 Pulse 76 01/08/17 20:30 Resp 19 01/08/17 20:30 BP 149/66 01/08/17 20:30 Pulse Ox 99 01/08/17 22:03 - Medical History PMH: Anxiety, Asthma, CAD, Cardia Arrhythmia, Depression, Diabetes (type I), Hepatitis (C), HTN, Hypercholesterolemia, Chronic Pain Surgical History: CABG (X2,4 years ago), Cholecystectomy - [facility] Procedures ESOPHAGOGASTRODUODENOSCOPY [EGD] W/CLOSED BIOPSY (01/28/04) INSPECTION OF HEPATOBILIARY DUCT, ENDO (11/25/16) Family History: States: Unknown Family Hx, Diabetes, Hypertension - Social History Hx Tobacco Use: No Hx Alcohol Use: No Hx Substance Use: Yes (Opiates) - Immunization History Hx Tetanus Toxoid Vaccination: Yes Hx Influenza Vaccination: Yes (2016) Hx Pneumococcal Vaccination: No Review Of Systems Review Of Systems: ROS cannot be obtained secondary to pt's inabilty to answer questions. (Narcotic Overdose; obtunded) Psych: Positive for: Anxiety, Withdrawal Physical Exam - Physical Exam Appears: Non-toxic, Other (obese, falling asleep during exam) Skin: Warm, Dry Eye(s): bilateral: Abnormal Pupil (pin point pupils) Neck: Supple Cardiovascular: Rhythm Regular Respiratory: No Rales, No Rhonchi, No Stridor, No Wheezing, Other (shallow respirations ) Gastrointestinal/Abdominal: Soft, No Tenderness, No Distention, No Guarding, No Rebound Extremity: Normal ROM, No Tenderness, No Pedal Edema, Other (scars from zohaib grafting ) Neurological/Psych: No Oriented x3, Other (obtunded) ED Course And Treatment - Laboratory Results Result Diagrams: 01/08/17 19:54 01/08/17 19:54 Lab Interpretation: Abnormal (elev glu) ECG: Interpreted By Me ECG Rhythm: Sinus Rhythm ECG Interpretation: Normal Rate From EC O2 Sat by Pulse Oximetry: 99 (room air ) Pulse Ox Interpretation: Normal Progress Note: Patient was given narcan 1.6 mg subQ in abdominal fat Reevaluation Time: 21:00 Reassessment Condition: Improved - Physician Consult Information Outcome Of Conversation: saw the pt today and was under the impression pt was not filling precriptions from other doctors, therefore was given a perscription today for chronic L leg neuropathic pain ? related to L leg venous grafting from CABG. Medical Decision Making Medical Decision Making: [place] [employer] reviewed and pt has extensive narcotics and xanax regimen with 48 prescriptions from 7 prescribers within the last year for chronic neuropathic left leg pain and questionably related to CABG from 4 years ago. Pt has been through multiple failed detox attempts. Persistent prescription narcotics abuse: today is 4th OD in 3 weeks, intermittent ED presentations for pain complaints may be considered drug- seeking attempts. pt with another 100+ tabs of Percocet 10/325 in his possession which he refuses to surrender and this MD unable to removed from him against his will, presents a VERY high risk of subsequent narcotics overdose and . Consulted with Pb of Risk Management and he supports that we may not take the percocets against the pt's will. Offered inpatient (floor) admission (to continue Percocet PRN) and then transfer to inpatient psych/detox which pt refuses- deemed no SI/HI, awake, alert, and oriented by Crisis workers. Pt's manager semiconductor seems to have been equally intoxicated (per EMS reports) but not our pt this evening- suggesting drug diversion. labs wnl, pt refused to give urine sample. normal cardiac labs and eval with low susp of ACS and/or recurrent L leg DVT pt fully and normally ambulatory @ discharge with NO s/s of neither acute nor chronic L leg pain. Pt demanding d/c may not be restrained against his will despite his apparent danger to himself and the apparent means to perpetrate it. Multiple re-evals were made to pt to offer detox and hospitalization in many permiations, but pt consistently refuses. Similar fruitless efforts by Crisis Evals @ bedside. Pt states he will find his own methodone program. Narcan Rx given and instructed to carry with him at all times and to inform fellow drug abusers of its use in an overdose situation. Cautioned extensively to use Percocet 10/325 only as prescribed and to return immediately for detox at his earliest convenience. Disposition Doctor Will See Patient In The: Office Counseled Patient/Family Regarding: Studies Performed, Diagnosis - Disposition Referrals: Alcoholics Anonymous [Outside] [facility] [Outside] [facility] Isabella Solitario MD [Medical Doctor] - Disposition: HOME/ ROUTINE Disposition Time: 21:24 Condition: GOOD Additional Instructions: do NOT TAKE Percocet more than as precribed. Return for Detox at your earliest convenience. Keep Narcan (antidote for narcotics abuse) on your person at all times and instruct your companions how to use it to save your life in case of accidental narcotics overdose from the percocet you are taking. Prescriptions: Naloxone HCl [Narcan] 4 mg NS ONCE PRN #1 spray PRN Reason: narcotics overdose Instructions: Narcotic Abuse (ED), Narcotic Pain Management (ED) - Clinical Impression Clinical Impression: Narcotic overdose - Scribe Statement The provider has reviewed the documentation as recorded by the Scribe Aria Deng All medical record entries made by the Scribe were at my direction and personally dictated by me. I have reviewed the chart and agree that the record accurately reflects my personal performance of the history, physical exam, medical decision making, and the department course for this patient. I have also personally directed, reviewed, and agree with the discharge instructions and disposition.
--- NOTE | 2017-01-09 10:16 | RAD ---
PROCEDURE: CHEST RADIOGRAPH, 1 VIEW HISTORY: SOB COMPARISON: None available. FINDINGS: LUNGS: Poor inspiration with low lung volumes, crowded bronchovascular markings and mild bibasilar atelectasis. Interstitial markings are slightly increased as well. Rule out mild chronic compensated pulmonary edema/CHF PLEURA: No pneumothorax or pleural fluid seen. CARDIOVASCULAR: Sternotomy wires again noted. Cardiomegaly. OSSEOUS STRUCTURES: Metallic fixation tack seen overlying the left humeral head VISUALIZED UPPER ABDOMEN: Normal. OTHER FINDINGS: None. IMPRESSION: Poor inspiration with low lung volumes, crowded bronchovascular markings and mild bibasilar atelectasis. Interstitial markings are slightly increased as well. Rule out mild chronic compensated pulmonary edema/CHF
--- NOTE | 2017-01-11 11:47 | CARD ---
APPROVED REPORT EKG Measurement Heart [id number] NM [id number] [id number] <Conclusion> Sinus rhythm with 1st degree AV block Possible Left atrial enlargement Inferior infarct, age undetermined Abnormal ECG
== END 2017-01-08 21:30 | disposition home or self-care (01) ==
LOC: C.ER 19:04
DX: T40.2X1A Poisoning by other opioids, accidental (unintentional), initial encounter (principal); R41.82 Altered mental status, unspecified; F11.10 Opioid abuse, uncomplicated; Y92.9 Unspecified place or not applicable

== ENCOUNTER 2017-01-14 08:18 | Emergency (ER) | payer MEDICAID, MEDICARE ==
[2017-01-14 08:36] VITALS: BMI 33.9
[2017-01-14] MEDS ORDERED: Oxycodone/Acetaminophen 5/325 mg Tab PO STA (09:16)
[2017-01-14] MEDS ORDERED: Oxycodone/Acetaminophen 5/325 mg Tab ONE (09:22)
--- NOTE | 2017-01-14 10:40 | CT ---
CT chest without IV contrast Indication: Right chest wall injury Technique: Contiguous axial images were obtained through the chest without intravenous contrast enhancement. Sagittal and coronal reconstructions were generated and reviewed. This CT exam was performed using 1 or more of the falling dose reduction techniques: Automated exposure control, adjustment of the MAA and/or kV according to patient size, and/or use of iterative reconstruction technique. Radiation dose (DLP): 626.22 MGy-cm. Comparison: Chest x-ray performed 01/08/17, CTA chest performed 12/12/16 Findings: Visualized portions of the inferior thyroid gland appears mildly enlarged. The unenhanced mediastinal and hilar vascular structures appear grossly unremarkable. Cardiomegaly. Dense coronary artery calcifications. No focal consolidation. No pleural effusion. No pneumothorax. No suspicious pulmonary nodules measuring greater than 5 mm. Small hiatal hernia/ distal esophageal wall thickening. Limited visualization of the noncontrast upper abdomen demonstrates CBD stent. Pneumobilia. Fatty atrophy of the pancreas. Median sternotomy wires. Mild compression fracture deformity of T11 superior endplate, similar to recent prior study. Bilateral gynecomastia. Impression: Included portions of the inferior thyroid gland appear mildly enlarged. Cardiomegaly. Coronary artery calcifications. Small hiatal hernia/distal esophageal wall thickening. CBD stent. Pneumobilia. Mild compression fracture deformity of T11 superior endplate re-identified. Additional findings as above.
[2017-01-14 10:54] VITALS: BP 176/84; PULSE 65; RESP 18; TEMP 98.4; O2SAT 98
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
== END 2017-01-14 11:23 | disposition home or self-care (01) ==
LOC: C.ER 08:18
DX: S20.211A Contusion of right front wall of thorax, initial encounter (principal); Y00.XXXA Assault by blunt object, initial encounter; Y93.89 Activity, other specified; Y92.89 Other specified places as the place of occurrence of the external cause

== ENCOUNTER 2017-02-04 13:13 | Emergency (ER) | payer MEDICARE ==
--- NOTE | 2017-03-15 12:50 | CARD ---
APPROVED REPORT EKG Measurement Heart [id number] <Conclusion> Sinus bradycardia with 1st degree AV block Otherwise normal ECG
== END 2017-02-04 14:10 | disposition left against medical advice (07) ==
LOC: C.ER 13:13
DX: R10.9 Unspecified abdominal pain (principal)

== ENCOUNTER 2017-03-13 21:24 | Emergency (ER) | payer MEDICARE ==
[2017-03-13 21:25] VITALS: BMI 33.9
[2017-03-13 21:39] VITALS: BP 161/74; PULSE 74; RESP 16; TEMP 97.8; O2SAT 99
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
== END 2017-03-13 23:43 | disposition left against medical advice (07) ==
LOC: C.ER 21:24
DX: T40.691A Poisoning by other narcotics, accidental (unintentional), initial encounter (principal); F11.10 Opioid abuse, uncomplicated; Y92.89 Other specified places as the place of occurrence of the external cause

== ENCOUNTER 2017-05-07 09:41 | Emergency (ER) | payer MEDICARE ==
[2017-05-07 09:41] VITALS: BMI 33.9
[2017-05-07] MEDS ORDERED: Ammonia 2% Inhalant ONE (09:52)
--- NOTE | 2017-05-07 10:14 | C.PDOC ---
History Of Present Illness 61 y/o M c PMHx anxiety, asthma, Atrial Fibrillation, CAD s/p CABG, Depression, DM, DVT, Hep C, HTN, Hypercholesterolemia, Pancreatitis BIBEMS after roommate found patient on floor unresponsive. EMS reports that en route, patient was awake, complaining about random things and not specifically answering any of their questions. While in the ER, patient began crying hysterically and yelling. When I went to evaluate patient, he was asleep, difficult to arouse, breathing spontaneously. Numerous previous ER visits show drug overdoses, poorly controlled DM. Time Seen by Provider: 05/07/17 09:51 Chief Complaint (Nursing): Lower Extremity Problem/Injury Past Medical History Vital Signs: Last Vital Signs Temp 98.2 F 05/07/17 11:35 Pulse 88 05/07/17 11:35 Resp 20 05/07/17 11:35 BP 118/78 05/07/17 11:35 Pulse Ox 99 05/07/17 11:35 - Medical History PMH: Anxiety, Asthma, Atrial Fibrillation, CAD, Cardia Arrhythmia, Depression, Diabetes (type I), Deep Vein Thrombosis (LLE), Gall Bladder Disease, Hepatitis ( C), HTN, Hypercholesterolemia, Pancreatitis, Chronic Pain Surgical History: CABG (X2,4 years ago), Cholecystectomy - [facility] Procedures ESOPHAGOGASTRODUODENOSCOPY [EGD] W/CLOSED BIOPSY (01/28/04) INSPECTION OF HEPATOBILIARY DUCT, ENDO (11/25/16) Family History: States: Unknown Family Hx, Diabetes, Hypertension - Social History Hx Tobacco Use: No Hx Alcohol Use: No Hx Substance Use: Yes (Opiates) - Immunization History Hx Tetanus Toxoid Vaccination: Yes Hx Influenza Vaccination: Yes (2016) Hx Pneumococcal Vaccination: No Review Of Systems Review Of Systems: ROS cannot be obtained secondary to pt's inabilty to answer questions. Physical Exam - Physical Exam Additional Physical Exam Comments: Constitutional: No acute distress. Head: Normocephalic. Atraumatic. Eyes: PERRL. ENT: Moist mucous membranes. Neck: Supple. Cardiovascular: Regular rate. Radial pulses 2+ bilaterally. Chest: No tenderness. Respiratory: Clear to auscultation bilaterally. GI: Soft. Nontender. Nondistended. Back: No CVA tenderness. Musculoskeletal: No tenderness or swelling of extremities. Skin: No rash. Neurologic: Alert, no focal deficit. ED Course And Treatment - Laboratory Results Result Diagrams: 05/07/17 10:38 05/07/17 10:38 O2 Sat by Pulse Oximetry: 96 (RA) Pulse Ox Interpretation: Normal Against Medical Advice - AMA Patient Left Against Medical Advice: The patient declines admission to the hospital and wishes to leave the Emergency Department. This action is against my medical advice. This decision was made with informed refusal. The patient was told that admission to the hospital is necessary. Explanation of the reasons why were discussed. The risks of leaving were explained to the patient and include, but are not limited to, worsening of known or currently unknown conditions, permanent disability and from undiagnosed or untreated conditions. The patient has the capacity to make this informed decision and understands my explanation of the current medical problem and risks of leaving. The patient voluntarily accepts these risks and signed an AMA form documenting our conversation. The patient was given the opportunity to ask questions and reconsider. The patient was encouraged to return to the Emergency Department at any time for further care. Medical Decision Making Medical Decision Making: PROCEDURE: CT HEAD WITHOUT CONTRAST. HISTORY: ams, found on floor COMPARISON: Noncontrast head CT performed 12/13/16 TECHNIQUE: Axial computed tomography images were obtained through the head/brain without intravenous contrast. Radiation dose: Total exam DLP = 985.82 mGy-cm. This CT exam was performed using one or more of the following dose reduction techniques: Automated exposure control, adjustment of the mA and/or kV according to patient size, and/or use of iterative reconstruction technique. FINDINGS: HEMORRHAGE: No intracranial hemorrhage. BRAIN: Diffuse atrophy with prominence of the ventricles and sulci noted. No mass effect or edema. Scattered periventricular and subcortical white matter hypodensities, which are nonspecific, but often seen with chronic microvascular ischemic disease. Please note that MRI with diffusion imaging is more sensitive in the detection of acute ischemic event. VENTRICLES: No hydrocephalus. CALVARIUM: Unremarkable. PARANASAL SINUSES: Small fluid within the bilateral sphenoid sinuses and right maxillary sinus. Mild mucosal thickening of the ethmoid air cells. MASTOID AIR CELLS: Unremarkable as visualized. No inflammatory changes. OTHER FINDINGS: None. IMPRESSION: Generalized atrophy. Nonspecific white matter changes. Small fluid within the bilateral sphenoid sinuses and right maxillary sinus. Mild mucosal thickening of the ethmoid air cells. Correlate clinically for sinusitis. CXR HISTORY: r/o PNA COMPARISON: 01/08/2017 FINDINGS: LUNGS: No infiltrate. Minimal linear scar/ atelectasis at left base. PLEURA: No significant pleural effusion identified, no pneumothorax apparent. CARDIOVASCULAR: Sternotomy wires. Normal heart size. No congestive change. OSSEOUS STRUCTURES: No significant abnormalities. VISUALIZED UPPER ABDOMEN: Normal. OTHER FINDINGS: None. IMPRESSION: No active disease. At 1130am, patient awake, steady gait, alert, states he wishes to leave. He is oriented x 3 and states he is willing to sign out AMA. When asked for urine, he states, "Go F yourself." Disposition - Disposition Disposition: AGAINST MEDICAL ADVICE Disposition Time: 11:33 Condition: FAIR Instructions: Syncope (ED) Forms: [facility] (Tunisian), (AMA) Informed Refusal - Clinical Impression Clinical Impression: Syncope - Scribe Statement The provider has reviewed the documentation as recorded by the Scribe Richard Negro All medical record entries made by the Scribe were at my direction and personally dictated by me. I have reviewed the chart and agree that the record accurately reflects my personal performance of the history, physical exam, medical decision making, and the department course for this patient. I have also personally directed, reviewed, and agree with the discharge instructions and disposition.
[2017-05-07 10:52] LABS: BASO % 0.5 % (0.0-2.0); EOS # 0.1 K/uL (0.0-0.7); EOS % 1.4 % (0.0-4.0); HEMATOCRIT 36.4 % (35.0-51.0); LYMPH # 1.9 K/uL (1.0-4.3); LYMPH % 25.5 % (20.0-40.0); MEAN CORPUSCULAR HEMOGLOBIN 23.7 pg (27.0-31.0); MEAN CORPUSCULAR HGB CONC 30.8 g/dL (33.0-37.0); MEAN PLATELET VOLUME 8.2 fL (7.2-11.7); MONO # 0.4 K/uL (0.0-0.8); MONO % 5.2 % (0.0-10.0); RED CELL DISTRIBUTION WIDTH 17.9 % (11.5-14.5); WHITE BLOOD COUNT 7.3 K/uL (4.8-10.8)
[2017-05-07 11:00] LABS: CHLORIDE 94 mmol/L (98-107); SODIUM 134 mmol/L (132-148)
[2017-05-07 11:01] LABS: POTASSIUM 4.3 mmol/L (3.6-5.2)
[2017-05-07 11:03] LABS: ALKALINE PHOSPHATASE 114 U/L (38-126); ALT/SGPT 32 U/L (21-72); AST/SGOT 29 U/L (17-59); BILIRUBIN,TOTAL 0.2 mg/dL (0.2-1.3); BLOOD UREA NITROGEN 19 mg/dL (9-20); CARBON DIOXIDE 31 mmol/L (22-30); GFR AFRICAN-AMERICAN > 60; GLUCOSE,RANDOM 257 mg/dL (75-110); TOTAL PROTEIN 6.3 g/dL (6.3-8.3)
[2017-05-07 11:04] LABS: ALCOHOL SERUM < 10 mg/dl (0-10); CALCIUM 8.7 mg/dl (8.6-10.4)
--- NOTE | 2017-05-07 11:17 | CT ---
PROCEDURE: CT HEAD WITHOUT CONTRAST. HISTORY: ams, found on floor COMPARISON: Noncontrast head CT performed 12/13/16 TECHNIQUE: Axial computed tomography images were obtained through the head/brain without intravenous contrast. Radiation dose: Total exam DLP = 985.82 mGy-cm. This CT exam was performed using one or more of the following dose reduction techniques: Automated exposure control, adjustment of the mA and/or kV according to patient size, and/or use of iterative reconstruction technique. FINDINGS: HEMORRHAGE: No intracranial hemorrhage. BRAIN: Diffuse atrophy with prominence of the ventricles and sulci noted. No mass effect or edema. Scattered periventricular and subcortical white matter hypodensities, which are nonspecific, but often seen with chronic microvascular ischemic disease. Please note that MRI with diffusion imaging is more sensitive in the detection of acute ischemic event. VENTRICLES: No hydrocephalus. CALVARIUM: Unremarkable. PARANASAL SINUSES: Small fluid within the bilateral sphenoid sinuses and right maxillary sinus. Mild mucosal thickening of the ethmoid air cells. MASTOID AIR CELLS: Unremarkable as visualized. No inflammatory changes. OTHER FINDINGS: None. IMPRESSION: Generalized atrophy. Nonspecific white matter changes. Small fluid within the bilateral sphenoid sinuses and right maxillary sinus. Mild mucosal thickening of the ethmoid air cells. Correlate clinically for sinusitis.
--- NOTE | 2017-05-07 11:18 | RAD ---
HISTORY: r/o PNA COMPARISON: 01/08/2017 FINDINGS: LUNGS: No infiltrate. Minimal linear scar/ atelectasis at left base. PLEURA: No significant pleural effusion identified, no pneumothorax apparent. CARDIOVASCULAR: Sternotomy wires. Normal heart size. No congestive change. OSSEOUS STRUCTURES: No significant abnormalities. VISUALIZED UPPER ABDOMEN: Normal. OTHER FINDINGS: None. IMPRESSION: No active disease.
[2017-05-07 11:35] VITALS: BP 118/78; PULSE 88; RESP 20; TEMP 98.2
[2017-05-07 11:41] VITALS: O2SAT 96
--- NOTE | 2017-05-11 17:51 | CARD ---
APPROVED REPORT EKG Measurement Heart [id number] <Conclusion> Sinus rhythm with 1st degree AV block Possible Inferior infarct, age undetermined Abnormal ECG
== END 2017-05-07 12:22 | disposition left against medical advice (07) ==
LOC: C.ER 09:41
DX: R55 Syncope and collapse (principal)
CPT/HCPCS: 36415; 70450; 71010; 80053; 82550; 82553; 84484; 85025; 99283; G0480

== ENCOUNTER 2017-05-10 13:40 | Emergency (ER) | payer MEDICARE ==
[2017-05-10 13:41] VITALS: BMI 33.9
[2017-05-10 13:52] VITALS: BP 171/89; PULSE 59; RESP 18; TEMP 97.4; O2SAT 99
--- NOTE | 2017-05-10 14:05 | C.PDOC ---
History Of Present Illness 61 y/o M c PMHx L leg DVT on Xarelto p/w L arm swelling x 1 day, abdominal bulge x 1 day, and cough productive of sputum x 2 days. He notes that he has not been on Xarelto for a few days because he is having his teeth extracted, last tooth extracted 3 days ago. Denies fever, vomiting, diarrhea, constipation , dyspnea, chest pain, abdominal pain. He began having cough with sputum production 2 days ago, and he reports that upon awakening this morning, he noticed a bulge in his anterior abdominal wall as well as L arm swelling. Time Seen by Provider: 05/10/17 13:54 Chief Complaint (Nursing): Abdominal Pain Past Medical History Vital Signs: Last Vital Signs Temp 97.4 F L 05/10/17 13:49 Pulse 59 L 05/10/17 13:49 Resp 18 05/10/17 13:49 BP 171/89 H 05/10/17 13:49 Pulse Ox 99 05/10/17 14:13 - Medical History PMH: Anxiety, Asthma, Atrial Fibrillation, CAD, Cardia Arrhythmia, Depression, Diabetes (type I), Deep Vein Thrombosis (LLE), Gall Bladder Disease, Hepatitis ( C), HTN, Hypercholesterolemia, Pancreatitis, Chronic Pain Surgical History: CABG (X2,4 years ago), Cholecystectomy - [facility] Procedures ESOPHAGOGASTRODUODENOSCOPY [EGD] W/CLOSED BIOPSY (01/28/04) INSPECTION OF HEPATOBILIARY DUCT, ENDO (11/25/16) Family History: States: Unknown Family Hx, Diabetes, Hypertension - Social History Hx Tobacco Use: No Hx Alcohol Use: No Hx Substance Use: Yes (Opiates) - Immunization History Hx Tetanus Toxoid Vaccination: Yes Hx Influenza Vaccination: Yes (2016) Hx Pneumococcal Vaccination: No Review Of Systems Except As Marked, All Systems Reviewed And Found Negative. Constitutional: Negative for: Fever Cardiovascular: Negative for: Chest Pain Physical Exam - Physical Exam Additional Physical Exam Comments: Constitutional: No acute distress. Head: Normocephalic. Atraumatic. Eyes: PERRL. EOMI. ENT: Moist mucous membranes. Neck: Supple. Cardiovascular: Regular rate. Radial pulses 2+ bilaterally. Chest: No tenderness. Respiratory: Clear to auscultation bilaterally. GI: Anterior abdominal mass, firm upon sitting up, nontender. Soft. Nondistended. Back: No CVA tenderness. Musculoskeletal: L arm with pitting edema, not largely different from R arm ( which patient states is not more swollen). Skin: No rash. Neurologic: Alert, no focal deficit. ED Course And Treatment O2 Sat by Pulse Oximetry: 99 Medical Decision Making Medical Decision Making: Patient eloped from the ED. Disposition - Disposition Disposition: ELOPEMENT - ER ONLY Disposition Time: 15:41 Condition: UNKNOWN Forms: [facility] (Urdu) - Clinical Impression Clinical Impression: Cough, Abdominal wall bulge, Arm swelling - Scribe Statement The provider has reviewed the documentation as recorded by the Scribe Tiffani Hammer All medical record entries made by the Scribe were at my direction and personally dictated by me. I have reviewed the chart and agree that the record accurately reflects my personal performance of the history, physical exam, medical decision making, and the department course for this patient. I have also personally directed, reviewed, and agree with the discharge instructions and disposition.
--- NOTE | 2017-05-10 14:21 | RAD ---
HISTORY: cough COMPARISON: Comparison made with prior chest radiograph 05/07/2017 No prior. TECHNIQUE: Chest PA and lateral FINDINGS: LUNGS: Poor inspiration with low lung volumes, crowded bronchovascular markings and mild bibasilar atelectasis left greater than right. Developing left lower lobe infiltrate could be excluded followup radiographs. PLEURA: No significant pleural effusion identified. No pneumothorax apparent. CARDIOVASCULAR: Sternotomy wires and CABG. OSSEOUS STRUCTURES: No significant abnormalities. VISUALIZED UPPER ABDOMEN: Normal. OTHER FINDINGS: None. IMPRESSION: Poor inspiration with low lung volumes, crowded bronchovascular markings and mild bibasilar atelectasis left greater than right. Developing left lower lobe infiltrate could be excluded followup radiographs.
--- NOTE | 2017-05-11 12:05 | VASCLAB ---
PROCEDURE: Left Upper Extremity Venous Duplex Exam HISTORY: L arm swelling, off Xarelto few days PRIORS: None. TECHNIQUE: Left upper extremity, internal jugular, subclavian, axillary, brachial, ulnar, radial, basilic and upper cephalic veins were evaluated. Flow was assessed with color Doppler, compressibility, assessment of phasic flow and augmentation response. Report prepared by Juice Nam, IBIS, RVT FINDINGS: LEFT: 1. Internal Jugular: 1.1. Compressibility - Fully compressible: Thrombus - None : Flow - Phasic: Augmentation -Normal: Reflux - None. 2. Subclavian: 2.1. Compressibility - Fully compressible: Thrombus - None : Flow - Phasic: Augmentation -Normal: Reflux - None. 3. Axillary: 3.1. Compressibility - Fully compressible: Thrombus - None : Flow - Phasic: Augmentation -Normal: Reflux - None. 4. Brachial: 4.1. Compressibility - Fully compressible: Thrombus - None: Flow - Phasic: Augmentation -Normal: Reflux - None. 5. Ulnar: 5.1. Compressibility - Fully compressible: Thrombus - None: Flow - Phasic: Augmentation -Normal: Reflux - None. 6. Radial: 6.1. Compressibility - Fully compressible: Thrombus - None: Flow - Phasic: Augmentation - Normal: Reflux - None. 7. Cephalic: 7.1. Compressibility - Fully compressible: Thrombus - None: Flow - Phasic: Augmentation -Normal: Reflux - None. 8. Basilic: 8.1. Compressibility - Fully compressible: Thrombus - None: Flow - Phasic: Augmentation -Normal: Reflux - None. OTHER FINDINGS: Left: None. IMPRESSION: Left: No evidence of vein thrombosis of the left upper extremity with excellent venous flow. Normal valve function noted of the left side. Normal venous flow noted in the right internal jugular and right subclavian veins.
== END 2017-05-10 15:47 | disposition left against medical advice (07) ==
LOC: C.ER 13:40
DX: R05 Cough (principal); M79.89 Other specified soft tissue disorders

== ENCOUNTER 2017-06-01 18:50 | Emergency (ER) | payer MEDICARE ==
[2017-06-01 18:51] VITALS: BMI 33.9
[2017-06-01 19:12] VITALS: RESP 18
--- NOTE | 2017-06-01 20:16 | C.PDOC ---
History Of Present Illness 61 y/o male, whose PMHx includes DM and heroin abuse, presents to the ED for evaluation of reported high blood sugar since prior to arrival. Patient states checked his blood sugar while high was at home prior to arrival. pt is poor historian, but Patient denies fever, chills, and has no other complaints at this time. Time Seen by Provider: 06/01/17 19:50 Chief Complaint (Nursing): High Blood Sugar History Per: Patient History/Exam Limitations: no limitations Onset/Duration Of Symptoms: Hrs Current Symptoms Are (Timing): Still Present Additional History Per: Patient Past Medical History Reviewed: Historical Data, Nursing Documentation, Vital Signs Vital Signs: Last Vital Signs Temp 98.4 F 06/01/17 20:00 Pulse 77 06/01/17 20:00 Resp 18 06/01/17 20:00 BP 141/74 06/01/17 20:00 Pulse Ox 98 06/01/17 20:19 - Medical History PMH: Anxiety, Asthma, Atrial Fibrillation, CAD, Cardia Arrhythmia, Depression, Diabetes (type I), Deep Vein Thrombosis (LLE), Gall Bladder Disease, Hepatitis ( C), HTN, Hypercholesterolemia, Pancreatitis, Chronic Pain Surgical History: CABG (X2,4 years ago), Cholecystectomy - [facility] Procedures ESOPHAGOGASTRODUODENOSCOPY [EGD] W/CLOSED BIOPSY (01/28/04) INSPECTION OF HEPATOBILIARY DUCT, ENDO (11/25/16) Family History: States: Unknown Family Hx, Diabetes, Hypertension - Social History Hx Tobacco Use: No Hx Alcohol Use: No Hx Substance Use: Yes (Opiates) - Immunization History Hx Tetanus Toxoid Vaccination: Yes Hx Influenza Vaccination: Yes (2016) Hx Pneumococcal Vaccination: No Review Of Systems Constitutional: Positive for: Other (+elevated blood sugar). Negative for: Fever, Chills Physical Exam - Physical Exam Appears: Non-toxic, No Acute Distress Skin: Normal Color, Warm, Dry Head: Atraumatic, Normacephalic Eye(s): bilateral: Normal Inspection Oral Mucosa: Moist Neck: Supple Chest: Symmetrical, No Deformity, No Tenderness Cardiovascular: Rhythm Regular, No Murmur Respiratory: Normal Breath Sounds, No Rales, No Rhonchi, No Wheezing Extremity: Normal ROM, Capillary Refill (less than 2 seconds ) Neurological/Psych: Oriented x3, Normal Speech, Normal Cognition Gait: Steady ED Course And Treatment O2 Sat by Pulse Oximetry: 98 (on RA) Pulse Ox Interpretation: Normal Medical Decision Making Medical Decision Making: r/o dka- pt offered labs- pt declines, immediately elopes from er. Impression: 61 y/o male with elevated blood sugar levels Progress: At approximately 20:03 patient was seen eloping from the ED. Disposition - Disposition Disposition: ELOPEMENT - ER ONLY Disposition Time: 21:27 Condition: UNKNOWN Forms: [email or web address] [facility] ([place]izen [place]) - Clinical Impression Clinical Impression: Hyperglycemia - Scribe Statement The provider has reviewed the documentation as recorded by the Scribe (Theodora Negro) Provider Attestation: All medical record entries made by the Scribe were at my direction and personally dictated by me. I have reviewed the chart and agree that the record accurately reflects my personal performance of the history, physical exam, medical decision making, and the department course for this patient. I have also personally directed, reviewed, and agree with the discharge instructions and disposition.
[2017-06-01 20:35] VITALS: BP 141/74; PULSE 77; TEMP 98.4
[2017-06-01 20:37] VITALS: O2SAT 98
== END 2017-06-01 20:35 | disposition left against medical advice (07) ==
LOC: C.ER 18:50
DX: E10.65 Type 1 diabetes mellitus with hyperglycemia (principal); I48.91 Unspecified atrial fibrillation; I25.10 Atherosclerotic heart disease of native coronary artery without angina pectoris; I10 Essential (primary) hypertension

== ENCOUNTER 2017-07-18 02:30 | Emergency (ER) | payer MEDICARE ==
[2017-07-18] MEDS ORDERED: Sodium Chloride 0.9% 1,000 ML ONE (02:42)
[2017-07-18] MEDS ORDERED: Dextrose 50% SYRINGE Inj (50 ml) ONE (02:42)
[2017-07-18 02:56] VITALS: BMI 31.6
[2017-07-18 03:24] LABS: BASO % 0.2 % (0.0-2.0); HEMATOCRIT 37.6 % (35.0-51.0); LYMPH # 0.9 K/uL (1.0-4.3); LYMPH % 6.7 % (20.0-40.0); MEAN CELL VOLUME 76.9 fL (80.0-94.0); MEAN CORPUSCULAR HEMOGLOBIN 24.4 pg (27.0-31.0); MEAN CORPUSCULAR HGB CONC 31.7 g/dL (33.0-37.0); MEAN PLATELET VOLUME 8.1 fL (7.2-11.7); MONO # 0.3 K/uL (0.0-0.8); MONO % 2.4 % (0.0-10.0); NRBC % 0.1 % (0.0-2.0); PLATELET COUNT 212 K/uL (130-400); RED CELL DISTRIBUTION WIDTH 16.5 % (11.5-14.5); WHITE BLOOD COUNT 13.3 K/uL (4.8-10.8)
[2017-07-18 03:33] LABS: CHLORIDE 93 mmol/L (98-107)
[2017-07-18 03:34] LABS: POTASSIUM 3.6 mmol/L (3.6-5.2); SODIUM 130 mmol/L (132-148)
[2017-07-18 03:36] LABS: BILIRUBIN,TOTAL 0.7 mg/dL (0.2-1.3); GFR AFRICAN-AMERICAN > 60
[2017-07-18 03:37] LABS: ALB/GLOB RATIO 1.1 (1.0-2.1); ALKALINE PHOSPHATASE 154 U/L (38-126); ALT/SGPT 83 U/L (21-72); AST/SGOT 41 U/L (17-59); BLOOD UREA NITROGEN 15 mg/dL (9-20); CALCIUM 9.1 mg/dl (8.6-10.4); CARBON DIOXIDE 23 mmol/L (22-30); GLUCOSE,RANDOM 90 mg/dL (75-110); TOTAL PROTEIN 8.1 g/dL (6.3-8.3)
[2017-07-18] MEDS ORDERED: Morphine 4 MG/ML VIAL ONE (03:55)
--- NOTE | 2017-07-18 04:03 | C.PDOC ---
History Of Present Illness 61 y/o M c PMHx anxiety, asthma, Afib, CAD, Depression, DM, DVT, HeP C, HTN, HLD p/w fall shortly prior to arrival. Patient states he took his insulin but then did not eat much food, became hypoglycemic and then fell. He now complains of headache and abdominal pain with NBNB vomiting. He notes a laceration to the posterior scalp. Denies chest pain, dyspnea, numbness, weakness. Time Seen by Provider: 07/18/17 03:17 Chief Complaint (Nursing): Dizziness/Lightheaded Past Medical History Vital Signs: Last Vital Signs Temp 97.6 F 07/18/17 05:36 Pulse 88 07/18/17 05:36 Resp 18 07/18/17 05:36 BP 127/72 07/18/17 05:36 Pulse Ox 98 07/18/17 06:09 - Medical History PMH: Anxiety, Asthma, Atrial Fibrillation, CAD, Cardia Arrhythmia, Depression, Diabetes (type I), Deep Vein Thrombosis (LLE), Gall Bladder Disease, Hepatitis ( C), HTN, Hypercholesterolemia, Pancreatitis, Chronic Pain Surgical History: CABG (X2,4 years ago), Cholecystectomy - [facility] Procedures ESOPHAGOGASTRODUODENOSCOPY [EGD] W/CLOSED BIOPSY (01/28/04) INSPECTION OF HEPATOBILIARY DUCT, ENDO (11/25/16) Family History: States: Unknown Family Hx, Diabetes, Hypertension - Social History Hx Tobacco Use: No Hx Alcohol Use: No Hx Substance Use: Yes (Opiates) - Immunization History Hx Tetanus Toxoid Vaccination: Yes Hx Influenza Vaccination: Yes (2016) Hx Pneumococcal Vaccination: No Review Of Systems Except As Marked, All Systems Reviewed And Found Negative. Constitutional: Negative for: Fever Cardiovascular: Negative for: Chest Pain Physical Exam - Physical Exam Additional Physical Exam Comments: Constitutional: No acute distress. Head: Normocephalic. Posterior scalp laceration, 3 cm, no active bleeding. Eyes: PERRL. EOMI. ENT: Moist mucous membranes. Neck: Supple. No midline tenderness. Cardiovascular: Regular rate. Radial pulse 2+ bilaterally. Chest: No tenderness. Respiratory: Clear to auscultation bilaterally. GI: Diffusely tender. Back: No midline tenderness. Musculoskeletal: No tenderness or swelling of extremities. FROM x 4. Pelvis stable. Skin: No rash. Laceration as above. Neurologic: Alert, no focal deficit. ED Course And Treatment - Laboratory Results Result Diagrams: 07/18/17 03:21 07/18/17 03:21 O2 Sat by Pulse Oximetry: 98 (RA) - CT Scan/US CT Head Without Intravenous Contrast Other Rad Studies (CT/US): Read By Radiologist, Radiology Report Reviewed CT/US Interpretation: FINDINGS: Brain: Mild atrophy. No intracranial hemorrhage. No mass. Few scattered subtle foci of decreased. attenuation within periventricular/subcortical white matter. No edema. Ventricles: No hydrocephalus. Bones/joints: No acute fracture. Soft tissues: Mild parietal soft tissue swelling. Vasculature: Mild atherosclerotic disease of intracranial arteries. Sinuses: No acute sinusitis. Mastoid air cells: No mastoid effusion. Orbits: Unremarkable as visualized. IMPRESSION: 1. No intracranial hemorrhage. 2. Nonspecific white matter changes. 3. Incidental/ non-acute findings are described above. CT Abdomen and Pelvis With Intravenous Contrast Other Rad Studies (CT/US): Read By Radiologist, Radiology Report Reviewed CT/US Interpretation: FINDINGS: Lower thorax: There is minimal bibasilar atelectasis. There is coronary artery calcification. The. heart as visualized appears borderline in size. Small hiatal hernia. ABDOMEN: Liver: There are no focal liver lesions present. Gallbladder and bile ducts: There is intrahepatic and extrahepatic biliary ductal dilatation, even. despite the presence of a common bile duct stent. For reference, the common bile duct measures. approximately 17 mm. There is trace pneumobilia as well. Please correlate clinically. No calcified. stones. Pancreas: Pancreas is partially fatty replaced. No ductal dilation. Spleen: The spleen is normal. Adrenals: The adrenal glands are normal. Kidneys and ureters: The left kidney is normal. Right kidney demonstrates a 19 mm mid pole cyst. There is no evidence of hydronephrosis. Stomach and bowel: The stomach is normal. Colonic constipation is present. There is no evidence. of intestinal obstruction. No mucosal thickening. Appendix: No findings to suggest acute appendicitis. PELVIS: Bladder: The bladder is normal. Reproductive: The prostate gland and seminal vesicles are normal. ABDOMEN and PELVIS: Intraperitoneal space: There is no evidence of free intraperitoneal fluid. There is no free. intraperitoneal air. Bones/joints: There are sternal wires consistent with previous sternotomy incision. There are. moderate degenerative changes present. There is moderate diffuse osteopenia. No acute fracture. No dislocation. Bone island in the left superior acetabular region. Soft tissues: Unremarkable. Vasculature: The aorta demonstrates mild atherosclerotic calcification. No abdominal aortic. aneurysm. Lymph nodes: There is no evidence of lymphadenopathy. IMPRESSION: 1. There is intrahepatic and extrahepatic biliary ductal dilatation, even despite the presence of a. common bile duct stent. For reference, the common bile duct measures approximately 17 mm. There is trace pneumobilia as well. Please correlate clinically. 2. No acute traumatic injuries identified in the abdomen or pelvis. Laceration - Laceration Repair No standard instances Wound Length (In cm): 3 Description Of Wound: Linear Anesthesia: Lidocaine 2% Wound Examination: Irrigated With Saline, No FB With Wound Exploration Wound Closure: Edda Wound Complexity: Simple Medical Decision Making Medical Decision Making: Wound cleaned. Tetanus updated. CXR no acute disease. Started on antibiotics. PMD Michele Whitmore accepts patient to his service. Disposition Discussed With : Michele Whitmore Doctor Will See Patient In The: Hospital - Disposition Disposition: HOSPITALIZED Disposition Time: 05:30 Condition: GUARDED Forms: [facility] ([place]) - Clinical Impression Clinical Impression: Laceration, Pneumobilia, Common bile duct dilatation
[2017-07-18] MEDS ORDERED: Iodixanol 320 MG/ML 200 ML BOTTLE IV ONE (04:08)
[2017-07-18 04:23] LABS: NEUTROPHIL 94 % (50-75); TOTAL CELLS COUNTED 100
--- NOTE | 2017-07-18 04:53 | CT ---
EXAM: CT Abdomen and Pelvis With Intravenous Contrast CLINICAL HISTORY: 61 years old, male; Injury or trauma; Fall; Initial encounter; Blunt; Generalized; Additional info: Fall, abd pain TECHNIQUE: Axial computed tomography images of the abdomen and pelvis with intravenous contrast. All CT scans at this facility use one or more dose reduction techniques, viz.: automated exposure control; ma/kV adjustment per patient size (including targeted exams where dose is matched to indication; i.e. head); or iterative reconstruction technique. Coronal and sagittal reformatted images were created and reviewed. CONTRAST: 100 mL of [id number] administered intravenously. COMPARISON: No relevant prior studies available. FINDINGS: Lower thorax: There is minimal bibasilar atelectasis. There is coronary artery calcification. The heart as visualized appears borderline in size. Small hiatal hernia. ABDOMEN: Liver: There are no focal liver lesions present. Gallbladder and bile ducts: There is intrahepatic and extrahepatic biliary ductal dilatation, even despite the presence of a common bile duct stent. For reference, the common bile duct measures approximately 17 mm. There is trace pneumobilia as well. Please correlate clinically. No calcified stones. Pancreas: Pancreas is partially fatty replaced. No ductal dilation. Spleen: The spleen is normal. Adrenals: The adrenal glands are normal. Kidneys and ureters: The left kidney is normal. Right kidney demonstrates a 19 mm mid pole cyst. There is no evidence of hydronephrosis. Stomach and bowel: The stomach is normal. Colonic constipation is present. There is no evidence of intestinal obstruction. No mucosal thickening. Appendix: No findings to suggest acute appendicitis. PELVIS: Bladder: The bladder is normal. Reproductive: The prostate gland and seminal vesicles are normal. ABDOMEN and PELVIS: Intraperitoneal space: There is no evidence of free intraperitoneal fluid. There is no free intraperitoneal air. Bones/joints: There are sternal wires consistent with previous sternotomy incision. There are moderate degenerative changes present. There is moderate diffuse osteopenia. No acute fracture. No dislocation. Bone island in the left superior acetabular region. Soft tissues: Unremarkable. Vasculature: The aorta demonstrates mild atherosclerotic calcification. No abdominal aortic aneurysm. Lymph nodes: There is no evidence of lymphadenopathy. IMPRESSION: 1. There is intrahepatic and extrahepatic biliary ductal dilatation, even despite the presence of a common bile duct stent. For reference, the common bile duct measures approximately 17 mm. There is trace pneumobilia as well. Please correlate clinically. 2. No acute traumatic injuries identified in the abdomen or pelvis.
[2017-07-18] MEDS ORDERED: Ciprofloxacin 400mg/200ml D5W 400 MG/200 ML BAG IVPB STA (04:56)
[2017-07-18] MEDS ORDERED: metroNIDAZOLE IV 500 mg/100 ml 500 MG/100 ML BAG IVPB STA (04:56)
--- NOTE | 2017-07-18 05:00 | CT ---
EXAM: CT Head Without Intravenous Contrast CLINICAL HISTORY: 61 years old, male; Injury or trauma; Fall; Initial encounter; Laceration; Consciousness not specified; Without residual foreign body; Scalp TECHNIQUE: Axial computed tomography images of the head/brain without intravenous contrast. All CT scans at this facility use one or more dose reduction techniques, viz.: automated exposure control; ma/kV adjustment per patient size (including targeted exams where dose is matched to indication; i.e. head); or iterative reconstruction technique. Coronal and sagittal reformatted images were created and reviewed. COMPARISON: No relevant prior studies available. FINDINGS: Brain: Mild atrophy. No intracranial hemorrhage. No mass. Few scattered subtle foci of decreased attenuation within periventricular/subcortical white matter. No edema. Ventricles: No hydrocephalus. Bones/joints: No acute fracture. Soft tissues: Mild parietal soft tissue swelling. Vasculature: Mild atherosclerotic disease of intracranial arteries. Sinuses: No acute sinusitis. Mastoid air cells: No mastoid effusion. Orbits: Unremarkable as visualized. IMPRESSION: 1. No intracranial hemorrhage. 2. Nonspecific white matter changes. 3. Incidental/non-acute findings are described above.
[2017-07-18 05:08] LABS: RBC URINE < 1 /hpf (0-3); URINE BILIRUBIN NEGATIVE (NEGATIVE); URINE BLOOD NEGATIVE (NEGATIVE); URINE COLOR Straw (YELLOW); URINE GLUCOSE (UA) NORMAL (Normal); URINE KETONE NEGATIVE (NEGATIVE); URINE LEUKOCYTE ESTERASE NEG Leu/uL (Negative); URINE PROTEIN NEGATIVE (NEGATIVE); URINE UROBILINOGEN NORMAL mg/dL (0.2-1.0); WBC URINE 1 /hpf (0-5)
[2017-07-18] MEDS ORDERED: Ciprofloxacin 400mg/200ml D5W 400 MG/200 ML BAG IVPB ONE (05:12)
[2017-07-18] MEDS ORDERED: metroNIDAZOLE IV 500 mg/100 ml 500 MG/100 ML BAG ONE (05:12)
[2017-07-18] MEDS ORDERED: Sodium Chloride 0.9% 1,000 ML IV SCH (07:00)
[2017-07-18] MEDS ORDERED: Ciprofloxacin 400mg/200ml D5W 400 MG/200 ML BAG IVPB SCH (07:00)
[2017-07-18] MEDS ORDERED: Albuterol 0.083% Inhal Sol (2.5 mg/3 mL) UD INH PRN (07:10)
[2017-07-18] MEDS ORDERED: (Novolog) Insulin Aspart, Recombinant 100 u/ml 10 ml vial SC SCH (07:30)
[2017-07-18 07:57] LABS: CHOLESTEROL 116 mg/dL (0-199)
[2017-07-18 08:17] VITALS: BP 137/79; PULSE 80; RESP 20; TEMP 97.4; O2SAT 95
--- NOTE | 2017-07-18 08:30 | CP.PCM.HP ---
History of Present Illness - History of Present Illness History of Present Illness: A 61 year old male, a well known patient to me with multiple medical problems such as anxiety, asthma, Afib, CAD, Depression, DM, DVT, HeP C, HTN, HLD came for a fall shortly prior to arrival to ER. Patient states he took his insulin but then did not eat much food, became hypoglycemic and then fell. He now complains of headache and abdominal pain with non bloody non bilous vomiting. He notes a laceration to the posterior scalp. Denies chest pain, dyspnea, numbness, weakness. At the ER, he had vomiting, and a CAT scan of abdomen showed a dilated common bile duct, a biliary stent with pneumobilia. He has a history of an admission at [facility] for acute pancreatitis a few months ago. Present on Admission - Present on Admission Any Indicators Present on Admission: No History of DVT/PE: No History of Uncontrolled Diabetes: Yes Urinary Catheter: No Decubitus Ulcer Present: No Review of Systems - Constitutional Constitutional: absent: Anorexia, Excessive Sweating, Night Sweats - Cardiovascular Cardiovascular: absent: Chest Pain, Dyspnea - Respiratory Respiratory: absent: Cough, Dyspnea - Gastrointestinal Gastrointestinal: Nausea, Vomiting. absent: Bloating Past Patient History - Infectious Disease Hx of Infectious Diseases: None - Past Medical History & Family History Past Medical History?: Yes - Past Social History Smoking Status: Former Smoker - CARDIAC Hx Atrial Fibrillation: Yes Hx Cardia Arrhythmia: Yes Hx Hypercholesterolemia: Yes Hx Hypertension: Yes - PULMONARY Hx Asthma: Yes - NEUROLOGICAL Hx Neurological Disorder: Yes Other/Comment: Hx neuropathy - ENDOCRINE/METABOLIC Hx Endocrine Disorders: Yes Hx Diabetes Mellitus Type 2: Yes - HEMATOLOGICAL/ONCOLOGICAL Hx Blood Disorders: Yes Hx Hepatitis C: Yes - INTEGUMENTARY Hx Dermatological Problems: No - MUSCULOSKELETAL/RHEUMATOLOGICAL Hx Musculoskeletal Disorders: Yes Hx Falls: Yes Hx Unsteady Gait: Yes (peripheral neuropathy) - GASTROINTESTINAL Hx Gall Bladder Disease: Yes Hx Pancreatitis: Yes - GENITOURINARY/GYNECOLOGICAL Hx Genitourinary Disorders: Yes Hx Urinary Tract Infection: Yes - PSYCHIATRIC Hx Anxiety: Yes Hx Depression: Yes Hx Substance Use: Yes (Opiates) - SURGICAL HISTORY Hx Cholecystectomy: Yes Hx Coronary Artery Bypass Graft: Yes (X2,4 years ago) - ANESTHESIA Hx Anesthesia: Yes Hx Anesthesia Reactions: No Hx Malignant Hyperthermia: No Meds Allergies/Adverse Reactions: Allergies Allergy/AdvReac Type Severity Reaction Status Date / Time Penicillins Allergy RASH Verified 06/01/17 19:02 Physical Exam - Constitutional Appears: No Acute Distress - Eye Exam Eye Exam: absent: Scleral icterus - Neck Exam Neck exam: Positive for: Full Rom, Normal Inspection - Respiratory Exam Respiratory Exam: Clear to Auscultation Bilateral, NORMAL BREATHING PATTERN. absent: Rales, Rhonchi, Wheezes - Cardiovascular Exam Cardiovascular Exam: REGULAR RHYTHM. absent: Systolic Murmur - GI/Abdominal Exam GI & Abdominal Exam: Normal Bowel Sounds, Soft. absent: Tenderness - Extremities Exam Extremities exam: Positive for: normal inspection. Negative for: pedal edema - Neurological Exam Neurological exam: Alert, Oriented x3 Results - Vital Signs Recent Vital Signs: Last Vital Signs Temp 97.6 F 07/18/17 05:36 Pulse 88 07/18/17 05:36 Resp 18 07/18/17 05:36 BP 127/72 07/18/17 05:36 Pulse Ox 98 07/18/17 06:39 - Labs Result Diagrams: 07/18/17 03:21 07/18/17 03:21 Labs: Laboratory Results - last 24 hr 07/18/17 07/18/17 07/18/17 02:39 02:59 03:21 WBC 13.3 H D RBC 4.89 Hgb 11.9 L Hct 37.6 MCV 76.9 L MCH 24.4 L MCHC 31.7 L RDW 16.5 H Plt Count 212 MPV 8.1 Neut % (Auto) 90.7 H Lymph % (Auto) 6.7 L Dixie % (Auto) 2.4 Eos % (Auto) 0.0 Baso % (Auto) 0.2 Neut # 12.1 H Lymph # 0.9 L Dixie # 0.3 Eos # 0.0 Baso # 0.0 Neutrophils % (Manual) 94 H Lymphocytes % (Manual) 5 L Monocytes % (Manual) 1 Platelet Estimate Normal Sodium Potassium Chloride Carbon Dioxide Anion Gap BUN Creatinine Est GFR ( Amer) Est GFR (Non-Af Amer) POC Glucose (mg/dL) 52 L 106 Random Glucose Calcium Total Bilirubin AST ALT Alkaline Phosphatase Total Creatine Kinase CK-MB (Mass) Troponin I, Quant Total Protein Albumin Globulin Albumin/Globulin Ratio Triglycerides Cholesterol LDL Cholesterol Direct HDL Cholesterol Lipase Urine Color Urine Clarity Urine pH Ur Specific Cedar Urine Protein Urine Glucose (UA) Urine Ketones Urine Blood Urine Nitrate Urine Bilirubin Urine Urobilinogen Ur Leukocyte Esterase Urine WBC (Auto) Urine RBC (Auto) 07/18/17 07/18/17 07/18/17 03:21 05:03 05:30 WBC RBC Hgb Hct MCV MCH MCHC RDW Plt Count MPV Neut % (Auto) Lymph % (Auto) Dixie % (Auto) Eos % (Auto) Baso % (Auto) Neut # Lymph # Dixie # Eos # Baso # Neutrophils % (Manual) Lymphocytes % (Manual) Monocytes % (Manual) Platelet Estimate Sodium 130 L Potassium 3.6 Chloride 93 L Carbon Dioxide 23 Anion Gap 18 BUN 15 Creatinine 0.7 L Est GFR ( Amer) > 60 Est GFR (Non-Af Amer) > 60 POC Glucose (mg/dL) 146 H Random Glucose 90 Calcium 9.1 Total Bilirubin 0.7 AST 41 ALT 83 H D Alkaline Phosphatase 154 H Total Creatine Kinase 124 CK-MB (Mass) 1.94 Troponin I, Quant < 0.0120 Total Protein 8.1 Albumin 4.3 Globulin 3.8 Albumin/Globulin Ratio 1.1 Triglycerides Cholesterol LDL Cholesterol Direct HDL Cholesterol Lipase Urine Color Straw Urine Clarity Clear Urine pH 7.0 Ur Specific Cedar 1.011 Urine Protein Negative Urine Glucose (UA) Normal Urine Ketones Negative Urine Blood Negative Urine Nitrate Negative Urine Bilirubin Negative Urine Urobilinogen Normal Ur Leukocyte Esterase Neg Urine WBC (Auto) 1 Urine RBC (Auto) < 1 07/18/17 07:48 WBC RBC Hgb Hct MCV MCH MCHC RDW Plt Count MPV Neut % (Auto) Lymph % (Auto) Dixie % (Auto) Eos % (Auto) Baso % (Auto) Neut # Lymph # Dixie # Eos # Baso # Neutrophils % (Manual) Lymphocytes % (Manual) Monocytes % (Manual) Platelet Estimate Sodium Potassium Chloride Carbon Dioxide Anion Gap BUN Creatinine Est GFR ( Amer) Est GFR (Non-Af Amer) POC Glucose (mg/dL) Random Glucose Calcium Total Bilirubin AST ALT Alkaline Phosphatase Total Creatine Kinase CK-MB (Mass) Troponin I, Quant Total Protein Albumin Globulin Albumin/Globulin Ratio Triglycerides 73 D Cholesterol 116 LDL Cholesterol Direct 60 HDL Cholesterol 40 Lipase 50 Urine Color Urine Clarity Urine pH Ur Specific Cedar Urine Protein Urine Glucose (UA) Urine Ketones Urine Blood Urine Nitrate Urine Bilirubin Urine Urobilinogen Ur Leukocyte Esterase Urine WBC (Auto) Urine RBC (Auto) Assessment & Plan - Assessment and Plan (Free Text) Assessment: pneumonbilia, CBD dilatation, s/p biliary stent hypoglycemia and fall, scalp laceration hyponatremia Plan: admit the patient to a regular floor iv antibiotics, cipro and flagyl after a blood culture check amylase, lipase GI consult diabetic control - Date & Time Date: 07/18/17 Time: 07:00 Decision To Admit - Pt Status Changed To: Hospital Disposition Of: Inpatient - Admit Certification Admit to Inpatient:: After my assessment, the patient will require hospitalization for at least two midnights. This is because of the severity of symptoms shown, intensity of services needed, and/or the medical risk in this patient being treated as an outpatient. - InPatient: Physician Admission Certification:: as ordered - . Bed Request Type: Regular Admitting Physician: Michele Whitmore
--- NOTE | 2017-07-18 09:22 | RAD ---
HISTORY: fall COMPARISON: 05/10/2017 FINDINGS: LUNGS: Mild venous congestion. Left basilar airspace opacification. Question small left pleural effusion. PLEURA: As above. CARDIOVASCULAR: Status post median sternotomy. Cardiomegaly. OSSEOUS STRUCTURES: Degenerative changes in the spine. Postsurgical changes in the left proximal humerus. VISUALIZED UPPER ABDOMEN: Normal. OTHER FINDINGS: None. IMPRESSION: Mild venous congestion. Left basilar airspace opacification. Question small left pleural effusion.
[2017-07-18] MEDS ORDERED: levETIRAcetam 100 mg/ml (5ml) Oral Syringe PO SCH (10:00)
[2017-07-18] MEDS ORDERED: Metoprolol Succinate 25 mg XL Tab PO SCH (10:00)
[2017-07-18] MEDS ORDERED: Pantoprazole 20 mg EC Tab PO SCH (10:00)
[2017-07-18] MEDS ORDERED: metroNIDAZOLE IV 500 mg/100 ml 500 MG/100 ML BAG IVPB SCH (14:00)
--- NOTE | 2017-07-19 22:26 | CARD ---
APPROVED REPORT EKG Measurement Heart [id number] <Conclusion> Sinus rhythm with 1st degree AV block Possible Left atrial enlargement Possible Inferior infarct, age undetermined Abnormal ECG
== END 2017-07-18 08:30 | disposition left against medical advice (07) ==
LOC: C.ER 02:30 → C.9E 06:37 → UNDOADMIN 06:37
DX: S01.01XA Laceration without foreign body of scalp, initial encounter (principal); W18.30XA Fall on same level, unspecified, initial encounter; K83.8 Other specified diseases of biliary tract; E11.649 Type 2 diabetes mellitus with hypoglycemia without coma; E87.1 Hypo-osmolality and hyponatremia; Z98.890 Other specified postprocedural states
CPT/HCPCS: 12002; 70450; 71010; 74177; 80053; 80061; 81001; 82948; 83690; 84484; 85025; 87040; 87086; 90471; 90715; 93005; 96365; 96368; 96375; 99285; J0744; J2270; J2405; J7040; Q9966

== ENCOUNTER 2017-08-02 20:04 | Emergency (ER) | payer MEDICARE ==
[2017-08-02 20:05] VITALS: BMI 31.6
[2017-08-02 20:10] VITALS: BP 142/76; PULSE 65; RESP 18; TEMP 98; O2SAT 96
--- NOTE | 2017-08-02 20:34 | C.PDOC ---
History Of Present Illness 61 y/o male with PMHx of Anxiety, HTN, CAD, DM and Asthma presents to ED with complaints of headache and right eye pain. 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 Patient denies loc, weakness, numbness, vision changes, other injuries or any other complaints at this time. Time Seen by Provider: 08/02/17 20:20 Chief Complaint (Nursing): Headache History Per: Patient History/Exam Limitations: no limitations Onset/Duration Of Symptoms: Hrs Current Symptoms Are (Timing): Still Present Past Medical History Reviewed: Historical Data, Nursing Documentation, Vital Signs Vital Signs: Last Vital Signs Temp 98 F 08/02/17 20:06 Pulse 65 08/02/17 20:06 Resp 18 08/02/17 20:06 BP 142/76 08/02/17 20:06 Pulse Ox 96 08/03/17 03:19 - Medical History PMH: Anxiety, Asthma, Atrial Fibrillation, CAD, Cardia Arrhythmia, Depression, Diabetes (type I), Deep Vein Thrombosis (LLE), Gall Bladder Disease, Hepatitis ( C), HTN, Hypercholesterolemia, Pancreatitis, Chronic Pain Surgical History: CABG (X2,4 years ago), Cholecystectomy - [facility] Procedures ESOPHAGOGASTRODUODENOSCOPY [EGD] W/CLOSED BIOPSY (01/28/04) INSPECTION OF HEPATOBILIARY DUCT, ENDO (11/25/16) Family History: States: Diabetes, Hypertension - Social History Hx Tobacco Use: No Hx Alcohol Use: No Hx Substance Use: Yes (Opiates) - Immunization History Hx Tetanus Toxoid Vaccination: Yes Hx Influenza Vaccination: Yes (2016) Hx Pneumococcal Vaccination: No Review Of Systems Eyes: Positive for: Pain. Negative for: Vision Change Cardiovascular: Negative for: Chest Pain Respiratory: Negative for: Cough, Shortness of Breath Gastrointestinal: Negative for: Nausea, Vomiting Skin: Negative for: Rash Neurological: Positive for: Headache Physical Exam - Physical Exam Appears: Non-toxic, No Acute Distress Skin: Warm, Dry, No Rash Head: Tenderness (right parietal scalp. (+) right eyebrow), Swelling (right parietal scalp\) Eye(s): bilateral: Normal Inspection, PERRL, EOMI Nose: Normal, No Discharge, No Tenderness Oral Mucosa: Moist Lips: Normal Appearing, No Swelling, No Laceration Teeth: Normal Dentition Neck: Supple, Other (soft collar neck brace in place) Cardiovascular: Rhythm Regular Respiratory: Normal Breath Sounds, No Rales, No Rhonchi, No Wheezing Gastrointestinal/Abdominal: Soft, No Tenderness, No Guarding, No Rebound Back: No CVA Tenderness, No Paraspinal Tenderness Neurological/Psych: Oriented x3, Normal Speech, Normal Cognition, Normal Cranial Nerves, Normal Motor, Normal Sensation Gait: Steady ED Course And Treatment O2 Sat by Pulse Oximetry: 96 (RA) Pulse Ox Interpretation: Normal Medical Decision Making Medical Decision Making: Patient eloped prior to received CT results and fluoroscein test. 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 - Scribe Statement The provider has reviewed the documentation as recorded by the Dorie Garsia All medical record entries made by the Dorie were at my direction and personally dictated by me. I have reviewed the chart and agree that the record accurately reflects my personal performance of the history, physical exam, medical decision making, and the department course for this patient. I have also personally directed, reviewed, and agree with the discharge instructions and disposition.
[2017-08-02] MEDS ORDERED: Tetracaine 0.5% Ophth 2 ML BOTTLE OD ONE (20:43)
[2017-08-02] MEDS ORDERED: Fluorescein 1 mg Ophthalmic Strip OD ONE (20:44)
[2017-08-02] MEDS ORDERED: Tetracaine 0.5% Ophth (OR ONLY) ONE (21:38)
[2017-08-02] MEDS ORDERED: Fluorescein 1 mg Ophthalmic Strip ONE (21:38)
--- NOTE | 2017-08-02 22:31 | CT ---
EXAM: CT Head Without Intravenous Contrast CLINICAL HISTORY: 61 years old, male; Injury or trauma; Fall; Initial encounter; Blunt trauma (contusions or hematomas); Consciousness not specified; Additional info: Injury to the r temporal area, R/O bleed TECHNIQUE: Axial computed tomography images of the head/brain without intravenous contrast. All CT scans at this facility use one or more dose reduction techniques, viz.: automated exposure control; ma/kV adjustment per patient size (including targeted exams where dose is matched to indication; i.e. head); or iterative reconstruction technique. Coronal and sagittal reformatted images were created and reviewed. COMPARISON: CT - HEAD W/O CONTRAST 2017-07-18 04:19 FINDINGS: Brain: No acute intracranial hemorrhage. Age-appropriate periventricular white matter disease. No edema. Ventricles: Age-appropriate ventriculomegaly. Bones: No acute displaced fracture. Sinuses: Unremarkable as visualized. No acute sinusitis. Mastoid air cells: Unremarkable as visualized. No mastoid effusion. IMPRESSION: No acute intracranial hemorrhage, or suspicious mass effect.
--- NOTE | 2017-08-02 22:54 | CT ---
EXAM: CT Maxillofacial Without Intravenous Contrast CLINICAL HISTORY: 61 years old, male; Injury or trauma; Fall; Initial encounter; Blunt trauma (contusions or hematomas); Ocular (eye or eyeball) and orbit/periorbital; Right; Additional info: ? Injury to r eye TECHNIQUE: Axial computed tomography images of the face without intravenous contrast. All CT scans at this facility use one or more dose reduction techniques, viz.: automated exposure control; ma/kV adjustment per patient size (including targeted exams where dose is matched to indication; i.e. head); or iterative reconstruction technique. Coronal and sagittal reformatted images were created and reviewed. COMPARISON: No relevant prior studies available. FINDINGS: Bones/joints: No acute displaced fracture. Soft tissues: Asymmetric soft tissue swelling in the right periorbital region. Orbits: The globes are intact (via CT). The retrobulbar fat is preserved. Sinuses: The sinuses are clear, without air-fluid levels. IMPRESSION: Asymmetric soft tissue swelling within the right periorbital region, without underlying injury to the right globe, as detected by CT.
== END 2017-08-02 22:00 | disposition left against medical advice (07) ==
LOC: C.ER 20:04
DX: R51 Headache (principal); S09.90XA Unspecified injury of head, initial encounter; W01.190A Fall on same level from slipping, tripping and stumbling with subsequent striking against furniture, initial encounter; Y93.89 Activity, other specified; Y92.003 Bedroom of unspecified non-institutional (private) residence as the place of occurrence of the external cause

== ENCOUNTER 2017-08-19 06:45 | Emergency (ER) | payer MEDICARE ==
[2017-08-19 06:45] VITALS: BMI 31.6
[2017-08-19 06:55] VITALS: O2SAT 98
[2017-08-19 07:55] LABS: BASO % 0.3 % (0.0-2.0); EOS # 0.1 K/uL (0.0-0.7); EOS % 0.6 % (0.0-4.0); HEMATOCRIT 38.6 % (35.0-51.0); LYMPH # 1.4 K/uL (1.0-4.3); LYMPH % 12.4 % (20.0-40.0); MEAN CELL VOLUME 78.4 fL (80.0-94.0); MEAN CORPUSCULAR HEMOGLOBIN 25.1 pg (27.0-31.0); MONO # 0.5 K/uL (0.0-0.8); MONO % 4.5 % (0.0-10.0); NRBC % 0.1 % (0.0-2.0); RED CELL DISTRIBUTION WIDTH 16.8 % (11.5-14.5); WHITE BLOOD COUNT 11.2 K/uL (4.8-10.8)
[2017-08-19 08:04] LABS: ALKALINE PHOSPHATASE 145 U/L (38-126); ALT/SGPT 130 U/L (21-72); AST/SGOT 150 U/L (17-59); BILIRUBIN,TOTAL 0.5 mg/dL (0.2-1.3); BLOOD UREA NITROGEN 18 mg/dL (9-20); CALCIUM 8.7 mg/dl (8.6-10.4); CARBON DIOXIDE 30 mmol/L (22-30); CHLORIDE 95 mmol/L (98-107); GFR AFRICAN-AMERICAN > 60; GLUCOSE,RANDOM 48 mg/dL (75-110); POTASSIUM 3.8 mmol/L (3.6-5.2); SODIUM 131 mmol/L (132-148)
[2017-08-19 08:05] LABS: ALB/GLOB RATIO 0.8 (1.0-2.1)
[2017-08-19 08:28] VITALS: BP 167/89; PULSE 67; RESP 17; TEMP 98.2
--- NOTE | 2017-08-19 09:53 | C.PDOC ---
History Of Present Illness 61 y/o male with Hx of Cervical and Lumbar Fracture presents to ED with complaints of sugar level being 56 at home earlier today. Patient states last time sugar level was low he fell and broke neck, was concern he would fall again which prompted visit to ED. Patient notes sugar level was 100 last night and took normal dose of insulin. AT ED patient has no complaints and denies chest pain, sob, dizziness, new injury or any other complaints at this time. Time Seen by Provider: 08/19/17 07:07 Chief Complaint (Nursing): Medical Clearance History Per: Patient History/Exam Limitations: no limitations Onset/Duration Of Symptoms: Hrs Current Symptoms Are (Timing): Still Present Past Medical History Reviewed: Historical Data, Nursing Documentation, Vital Signs Vital Signs: Last Vital Signs Temp 98.2 F 08/19/17 08:28 Pulse 67 08/19/17 08:28 Resp 17 08/19/17 08:28 BP 167/89 H 08/19/17 08:28 Pulse Ox 98 08/19/17 09:57 - Medical History PMH: Anxiety, Asthma, Atrial Fibrillation, CAD, Cardia Arrhythmia, Depression, Diabetes (type I), Deep Vein Thrombosis (LLE), Gall Bladder Disease, Hepatitis ( C), HTN, Hypercholesterolemia, Pancreatitis, Chronic Pain Surgical History: CABG (X2,4 years ago), Cholecystectomy - [facility] Procedures ESOPHAGOGASTRODUODENOSCOPY [EGD] W/CLOSED BIOPSY (01/28/04) INSPECTION OF HEPATOBILIARY DUCT, ENDO (11/25/16) Family History: States: Diabetes, Hypertension - Social History Hx Tobacco Use: No Hx Alcohol Use: No Hx Substance Use: Yes (Opiates) - Immunization History Hx Tetanus Toxoid Vaccination: Yes Hx Influenza Vaccination: Yes (2016) Hx Pneumococcal Vaccination: No Review Of Systems Constitutional: Negative for: Fever, Chills Cardiovascular: Negative for: Chest Pain Respiratory: Negative for: Shortness of Breath Gastrointestinal: Negative for: Nausea, Vomiting Skin: Negative for: Rash Neurological: Negative for: Weakness, Numbness, Dizziness Physical Exam - Physical Exam Appears: Non-toxic, No Acute Distress Skin: Normal Color, Warm, Dry, No Rash Head: Atraumatic, Normacephalic Eye(s): bilateral: Normal Inspection, EOMI Nose: Normal Oral Mucosa: Moist Neck: Other (Hard cervical collar in place) Chest: Symmetrical Cardiovascular: Rhythm Regular Respiratory: Normal Breath Sounds, No Accessory Muscle Use, No Rales, No Rhonchi , No Wheezing Gastrointestinal/Abdominal: Soft, No Tenderness, No Guarding, No Rebound Back: No CVA Tenderness, Other (TLCO brace ) Neurological/Psych: Oriented x3, Normal Motor, Normal Sensation ED Course And Treatment - Laboratory Results Result Diagrams: 08/19/17 07:41 08/19/17 07:41 O2 Sat by Pulse Oximetry: 98 (RA) Pulse Ox Interpretation: Normal Progress Note: Patient ate sandwich and drank juice. Patient feels well and has steady gait. Patient noted to have elevated LFT, copy of labs to give to PMD at follow up. in 1-2 days. PT feels comfortable going home. Disposition - Disposition Disposition: HOME/ ROUTINE Disposition Time: 10:00 Condition: STABLE Additional Instructions: Your liver enzymes were elevated today. Show your doctor the labs for further evaluation. 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 - Scribe Statement The provider has reviewed the documentation as recorded by the Kleberibshanice Garsia All medical record entries made by the Kleberibshanice were at my direction and personally dictated by me. I have reviewed the chart and agree that the record accurately reflects my personal performance of the history, physical exam, medical decision making, and the department course for this patient. I have also personally directed, reviewed, and agree with the discharge instructions and disposition.
== END 2017-08-19 08:35 | disposition home or self-care (01) ==
LOC: C.ER 06:45
DX: E10.649 Type 1 diabetes mellitus with hypoglycemia without coma (principal); Z79.4 Long term (current) use of insulin

== ENCOUNTER 2017-09-25 02:30 | Emergency (ER) | payer MEDICARE, OTHER ==
[2017-09-25 02:31] VITALS: BMI 31.6
[2017-09-25] MEDS ORDERED: Oxycodone/Acetaminophen 5/325 mg Tab PO STA (02:51)
[2017-09-25] MEDS ORDERED: Oxycodone/Acetaminophen 5/325 mg Tab ONE (02:56)
--- NOTE | 2017-09-25 05:23 | C.PDOC ---
History Of Present Illness 61 years old male with past Hx of neck surgery presents to ED with complaints of knee, upper leg and wrist pain on the left side regions after falling. Patient is currently wearing a soft C-collar with no new injuries. Patient denies any other physical complaints. Time Seen by Provider: 09/25/17 02:42 Chief Complaint (Nursing): Lower Extremity Problem/Injury History Per: Patient History/Exam Limitations: no limitations Onset/Duration Of Symptoms: Hrs Current Symptoms Are (Timing): Still Present Severity: Moderate Pain Scale Rating Of: 4 Recent travel outside of the [place]: No - Knee Description Of Injury: Fell Past Medical History Reviewed: Historical Data, Nursing Documentation, Vital Signs Vital Signs: Last Vital Signs Temp 98.4 F 09/25/17 02:37 Pulse 51 L 09/25/17 06:01 Resp 18 09/25/17 06:01 BP 109/53 L 09/25/17 06:01 Pulse Ox 95 09/25/17 06:07 - Medical History PMH: Anxiety, Asthma, Atrial Fibrillation, CAD, Cardia Arrhythmia, Depression, Diabetes (type I), Deep Vein Thrombosis (LLE), Gall Bladder Disease, Hepatitis ( C), HTN, Hypercholesterolemia, Pancreatitis, Chronic Pain Surgical History: CABG (X2,4 years ago), [facility] - [facility] Procedures ESOPHAGOGASTRODUODENOSCOPY [EGD] W/CLOSED BIOPSY (01/28/04) INSPECTION OF HEPATOBILIARY DUCT, ENDO (11/25/16) Family History: States: No Known Family Hx, Diabetes, Hypertension - Social History Hx Tobacco Use: No Hx Alcohol Use: No Hx Substance Use: Yes (Opiates) - Immunization History Hx Tetanus Toxoid Vaccination: Yes Hx Influenza Vaccination: Yes (2016) Hx Pneumococcal Vaccination: No Review Of Systems Musculoskeletal: Positive for: Other (Left knee, upper leg and wrist) Skin: Negative for: Rash Neurological: Negative for: Weakness, Numbness Psych: Negative for: Depression, Suicidal ideation Physical Exam - Physical Exam Appears: Non-toxic, Other (Awake and alert ) Skin: Normal Color, Warm, Dry Head: Atraumatic, Normacephalic Eye(s): bilateral: Normal Inspection Oral Mucosa: Moist Chest: Symmetrical, No Tenderness Cardiovascular: Rhythm Regular Respiratory: No Rales, No Rhonchi, No Wheezing Gastrointestinal/Abdominal: Soft, No Tenderness Extremity: Tenderness (Left knee, distal femur, and left wrist), No Deformity, Other (No erythema) Pulses: Left Radial: Normal, Right Radial: Normal Neurological/Psych: Oriented x3, Normal Speech, Normal Cognition ED Course And Treatment O2 Sat by Pulse Oximetry: 95 (Room air) Pulse Ox Interpretation: Normal Medical Decision Making Medical Decision Making: X-Ray shows no fractures. Patient administered Percocet and Tylenol and stable for discharge. Sheng wrap was applied on the affected leg. Disposition - Disposition Referrals: Michele Whitmore MD [Staff Provider] - Disposition: HOME/ ROUTINE Disposition Time: 05:21 Condition: STABLE Additional Instructions: Follow up with your PMD within 1-2 days. Return to ED if feel worse. 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 - Scribe Statement The provider has reviewed the documentation as recorded by the Scribshanice Colin All medical record entries made by the Kleberibshanice were at my direction and personally dictated by me. I have reviewed the chart and agree that the record accurately reflects my personal performance of the history, physical exam, medical decision making, and the department course for this patient. I have also personally directed, reviewed, and agree with the discharge instructions and disposition.
[2017-09-25 10:22] VITALS: BP 121/60; PULSE 60; RESP 16; TEMP 98.2; O2SAT 99
--- NOTE | 2017-09-25 18:18 | RAD ---
PROCEDURE: Left Femur Radiographs. HISTORY: fall COMPARISON: None. TECHNIQUE: AP and Lateral Radiographs of the left femur. FINDINGS: FEMUR: Normal. No fracture. SOFT TISSUES: Normal. OTHER FINDINGS: None. IMPRESSION: Unremarkable radiographs of the left femur.
--- NOTE | 2017-09-25 18:19 | RAD ---
PROCEDURE: Left Wrist Radiographs. HISTORY: fall COMPARISON: None. FINDINGS: BONES: Normal. No fracture. JOINTS: Normal. No dislocation. SOFT TISSUES: Vascular calcification. OTHER FINDINGS: None. IMPRESSION: No evidence of acute fracture or dislocation P
== END 2017-09-25 10:22 | disposition home or self-care (01) ==
LOC: C.ER 02:30
DX: S80.02XA Contusion of left knee, initial encounter (principal); S60.212A Contusion of left wrist, initial encounter; W18.30XA Fall on same level, unspecified, initial encounter

== ENCOUNTER 2017-09-30 04:49 | Emergency (ER) | payer MEDICARE, OTHER ==
[2017-09-30 04:50] VITALS: BMI 31.6
[2017-09-30] MEDS ORDERED: Albuterol-Ipratrop 3 mg / 0.5 (3 ml) UD ONE ×2 (05:04→06:13)
[2017-09-30] MEDS ORDERED: Albuterol-Ipratrop 3 mg / 0.5 (3 ml) UD IH STA (05:36)
[2017-09-30] MEDS ORDERED: Sodium Chloride 0.9% 1,000 ML IV ONE (05:36)
--- NOTE | 2017-09-30 05:39 | C.PDOC ---
History Of Present Illness 61 yo male w/PMHx of Anxiety, HTN, CAD, DM and Asthma, come in for evaluation of cold sx gradually developed for past few days. Pt reports, " was unable to sleep due to chest tightness and cough". Pt describes cough as dry, spasmadic. Otherwise, pt denies high fever, chills, dizziness, drooling, neck pain, CP. dysphea, diaphoresis, palpitation, abd. pain, V/D, back pain, UTI Sx. At the time of evaluation, appears comfortable, not in any apparent distress. Time Seen by Provider: 09/30/17 04:56 Chief Complaint (Nursing): Shortness Of Breath History Per: Patient Past Medical History Reviewed: Historical Data, Nursing Documentation, Vital Signs Vital Signs: Last Vital Signs Temp 98.3 F 09/30/17 05:06 Pulse 76 09/30/17 05:06 Resp 26 H 09/30/17 05:10 BP 161/70 H 09/30/17 05:06 Pulse Ox 95 09/30/17 05:40 - Medical History PMH: Anxiety, Asthma, Atrial Fibrillation, CAD, Cardia Arrhythmia, Depression, Diabetes (type I), Deep Vein Thrombosis (LLE), Gall Bladder Disease, Hepatitis ( C), HTN, Hypercholesterolemia, Pancreatitis, Chronic Pain Surgical History: CABG (X2,4 years ago), Cholecystectomy - [facility] Procedures ESOPHAGOGASTRODUODENOSCOPY [EGD] W/CLOSED BIOPSY (01/28/04) INSPECTION OF HEPATOBILIARY DUCT, ENDO (11/25/16) Family History: States: Unknown Family Hx, Diabetes, Hypertension - Social History Hx Tobacco Use: No Hx Alcohol Use: No Hx Substance Use: Yes (Opiates) - Immunization History Hx Tetanus Toxoid Vaccination: Yes Hx Influenza Vaccination: Yes (2016) Hx Pneumococcal Vaccination: No Review Of Systems Except As Marked, All Systems Reviewed And Found Negative. Constitutional: Negative for: Fever, Chills ENT: Positive for: Nose Discharge, Nose Congestion. Negative for: Ear Discharge , Throat Pain Cardiovascular: Negative for: Palpitations, Orthopnea, Edema, Light Headedness Respiratory: Positive for: Cough. Negative for: Shortness of Breath, Sputum, Wheezing Gastrointestinal: Negative for: Nausea, Vomiting, Abdominal Pain, Diarrhea Genitourinary: Negative for: Dysuria Musculoskeletal: Negative for: Neck Pain Skin: Negative for: Rash Neurological: Negative for: Weakness, Numbness, Altered Mental Status, Headache , Dizziness Physical Exam - Physical Exam Appears: Well, Non-toxic, No Acute Distress Skin: Normal Color, Warm, Dry, No Rash Head: Normacephalic Eye(s): bilateral: PERRL Nose: No Flaring, No Discharge Oral Mucosa: Moist, No Drooling Throat: No Erythema, No Exudate, No Drooling Neck: Trachea Midline, No Midline Cervical Tenderness, No Paracervical Tenderness, Supple Cardiovascular: Rhythm Regular, No Murmur, No JVD, Other ((-) carotid bruits B/L ) Respiratory: No Decreased Breath Sounds, No Accessory Muscle Use, No Stridor, Wheezing (scatterd Right base) Gastrointestinal/Abdominal: Soft, No Tenderness, No Distention, No Guarding Back: No CVA Tenderness Extremity: Normal ROM, No Pedal Edema Neurological/Psych: Oriented x3, Normal Speech ED Course And Treatment - Laboratory Results Result Diagrams: 09/30/17 06:10 09/30/17 06:10 ECG: Interpreted By Me, Viewed By Me (and ) ECG Rhythm: Sinus Rhythm Interpretation Of ECG: SR@68/min,junctional rhytm, LAD, no acute ST-T changes. O2 Sat by Pulse Oximetry: 95 Pulse Ox Interpretation: Normal - Radiology CXR: Interpreted by Me, Viewed By Me CXR Interpretation: Yes: Cardiomegaly - Other Rad CXR X-Ray: Interpreted by Me (), Viewed By Me Interpretation: (+)cardiomegaly s/p CABG, increased interstitial markings L>R Disposition - Disposition Disposition Time: 06:47 Condition: STABLE Forms: [facility] (Welsh) - Clinical Impression Clinical Impression: Dyspnea, Chronic congestive heart failure Physician Patient Turnover Patient Signed Over To: Brenda Moreno Handoff Comments: Troponin, BNP, re-eval, dispo
[2017-09-30] MEDS ORDERED: Sodium Chloride 0.9% 1,000 ML ONE (06:13)
[2017-09-30 06:14] LABS: BASO % 0.5 % (0.0-2.0); EOS # 0.1 K/uL (0.0-0.7); EOS % 1.3 % (0.0-4.0); LYMPH # 1.2 K/uL (1.0-4.3); LYMPH % 14.8 % (20.0-40.0); MEAN CELL VOLUME 79.1 fL (80.0-94.0); MEAN CORPUSCULAR HEMOGLOBIN 25.2 pg (27.0-31.0); MEAN CORPUSCULAR HGB CONC 31.9 g/dL (33.0-37.0); MEAN PLATELET VOLUME 8.3 fL (7.2-11.7); MONO # 0.5 K/uL (0.0-0.8); MONO % 5.8 % (0.0-10.0); NEUT # 6.4 K/uL (1.8-7.0); NEUT % 77.6 % (50.0-75.0); RBC 3.96 Mil/uL (4.40-5.90); RED CELL DISTRIBUTION WIDTH 16.7 % (11.5-14.5); WHITE BLOOD COUNT 8.3 K/uL (4.8-10.8)
[2017-09-30 06:22] LABS: INR 1.2
[2017-09-30 06:23] LABS: SQUAMOUS EPITHIAL < 1 /hpf (0-5); URINE BACTERIA RARE (<OCC); URINE BILIRUBIN NEGATIVE (NEGATIVE); URINE BLOOD NEGATIVE (NEGATIVE); URINE CLARITY Clear (Clear); URINE COLOR Yellow (YELLOW); URINE GLUCOSE (UA) NORMAL (Normal); URINE LEUKOCYTE ESTERASE TRACE Leu/uL (Negative); URINE NITRATE NEGATIVE (NEGATIVE); URINE PROTEIN NEGATIVE (NEGATIVE); URINE UROBILINOGEN NORMAL mg/dL (0.2-1.0)
[2017-09-30 06:29] LABS: ALBUMIN 3.7 g/dL (3.5-5.0); ALT/SGPT 83 U/L (21-72); AST/SGOT 47 U/L (17-59); BLOOD UREA NITROGEN 14 mg/dL (9-20); CALCIUM 7.9 mg/dl (8.6-10.4); GFR AFRICAN-AMERICAN > 60; GFR NON-AFRICAN AMERICAN > 60
[2017-09-30 06:37] LABS: BARBITURATES, UR NEGATIVE (NEGATIVE); PHENCYCLIDINE, UR NEGATIVE (NEGATIVE)
[2017-09-30 06:40] LABS: B-TYPE NATRIURETIC PEPTIDE 607 pg/mL (0-900)
[2017-09-30 06:55] LABS: BENZODIAZEPINES, UR POSITIVE (NEGATIVE); OPIATES, UR POSITIVE (NEGATIVE)
[2017-09-30 07:06] VITALS: PULSE 74; O2SAT 96
--- NOTE | 2017-09-30 08:49 | RAD ---
Chest x-ray single frontal view History: Shortness of breath. Gonzalez: 07/25/2017 Findings: Mild venous congestion. Patchy left basilar airspace opacity. Status post median sternotomy and CABG. Enlarged ectatic aorta. Cardiomegaly. Degenerative changes in the spine and shoulders. Postsurgical changes in the left proximal humerus. Impression: Mild venous congestion. Patchy left basilar airspace opacity. Status post median sternotomy and CABG. Enlarged ectatic aorta. Cardiomegaly.
[2017-09-30 10:16] VITALS: BP 133/66; RESP 20; TEMP 98
== END 2017-09-30 11:13 | disposition home or self-care (01) ==
LOC: C.ER 04:49 → UNDOADMOB 08:34 → C.9E 08:34 → C.ER 11:13
DX: I50.9 Heart failure, unspecified (principal); R06.00 Dyspnea, unspecified
CPT/HCPCS: 71045; 80053; 81001; 83880; 84484; 85025; 85610; 85730; 87040; 96374; 96375; 99285; G0480; J1940; J2930; J7040

== ENCOUNTER 2017-10-20 06:19 | Emergency (ER) | payer MEDICARE, OTHER ==
[2017-10-20 06:19] VITALS: BMI 31.6
[2017-10-20 06:40] VITALS: TEMP 98.2
--- NOTE | 2017-10-20 09:32 | C.PDOC ---
History Of Present Illness 62-year-old male, PMHx includes DVT (left leg, previously on thinners), presents to the emergency department with complaints of left leg pain for many months. He denies chest pain, shortness of breath, palpitations, or any other associated symptoms. No other complaints at this time. Time Seen by Provider: 10/20/17 07:09 Chief Complaint (Nursing): Lower Extremity Problem/Injury History Per: Patient History/Exam Limitations: no limitations Onset/Duration Of Symptoms: Days Current Symptoms Are (Timing): Still Present Severity: Moderate Past Medical History Reviewed: Historical Data, Nursing Documentation, Vital Signs Vital Signs: Last Vital Signs Temp 98.2 F 10/20/17 09:41 Pulse 54 L 10/20/17 09:41 Resp 20 10/20/17 09:41 BP 116/68 10/20/17 09:41 Pulse Ox 96 10/20/17 09:41 - Medical History PMH: Anxiety, Asthma, Atrial Fibrillation, CAD, Cardia Arrhythmia, Depression, Diabetes (type I), Deep Vein Thrombosis (LLE), Gall Bladder Disease, Hepatitis ( C), HTN, Hypercholesterolemia, Pancreatitis, Chronic Pain Surgical History: CABG (X2,4 years ago), Cholecystectomy - [facility] Procedures ESOPHAGOGASTRODUODENOSCOPY [EGD] W/CLOSED BIOPSY (01/28/04) INSPECTION OF HEPATOBILIARY DUCT, ENDO (11/25/16) Family History: States: Diabetes, Hypertension - Social History Hx Tobacco Use: No Hx Alcohol Use: No Hx Substance Use: Yes (Opiates) - Immunization History Hx Tetanus Toxoid Vaccination: Yes Hx Influenza Vaccination: Yes (2016) Hx Pneumococcal Vaccination: No Review Of Systems Except As Marked, All Systems Reviewed And Found Negative. Constitutional: Negative for: Fever, Chills Cardiovascular: Negative for: Chest Pain, Palpitations Respiratory: Negative for: Shortness of Breath Gastrointestinal: Negative for: Nausea, Vomiting Musculoskeletal: Positive for: Leg Pain Neurological: Negative for: Weakness, Numbness, Headache, Dizziness Physical Exam - Physical Exam Appears: Non-toxic, No Acute Distress Skin: Warm, Dry, No Rash Eye(s): bilateral: Normal Inspection, PERRL Nose: Normal Oral Mucosa: Moist Lips: Normal Appearing Neck: Normal ROM Chest: Symmetrical Cardiovascular: Rhythm Regular, No Murmur Respiratory: Normal Breath Sounds, No Accessory Muscle Use Extremity: Other (Diffuse tenderness in left lower leg. No erythema, or swelling. ) Pulses: Left Dorsalis Pedis: Normal, Right Dorsalis Pedis: Normal Neurological/Psych: Oriented x3 Gait: Steady (with walker) ED Course And Treatment O2 Sat by Pulse Oximetry: 98 (RA) Pulse Ox Interpretation: Normal Progress Note: doppler ordered and reviewed. patient treated with Tylenol PO. Disposition Counseled Patient/Family Regarding: Diagnosis, Need For Followup, Rx Given - Disposition Referrals: Michele Whitmore MD [Staff Provider] - Disposition: HOME/ ROUTINE Disposition Time: 09:30 Condition: STABLE Additional Instructions: FOLLOW UP WITH DOCTOR IN 1-2 DAYS USE TYLENOL NEEDED RETURN TO ER IF SYMPTOMS WORSEN Forms: [facility] (Mauritanian), General Discharge Instructions Print Language: MONGOLIAN - POA Present On Arrival: None - Clinical Impression Clinical Impression: Left leg pain - Scribe Statement The provider has reviewed the documentation as recorded by the Scribe (Dinesh Michaels) All medical record entries made by the Scribe were at my direction and personally dictated by me. I have reviewed the chart and agree that the record accurately reflects my personal performance of the history, physical exam, medical decision making, and the department course for this patient. I have also personally directed, reviewed, and agree with the discharge instructions and disposition.
--- NOTE | 2017-10-20 09:36 | VASCLAB ---
PROCEDURE: Left Lower Extremity Venous Duplex Exam. HISTORY: LLE pain, h/o DVT PRIORS: 12/09/2016 TECHNIQUE: Left common femoral, femoral, popliteal and posterior tibial, peroneal and great saphenous veins were evaluated. Flow was assessed with color Doppler, compressibility, assessment of phasic flow and augmentation response. Report prepared by BELLA Vargas FINDINGS: LEFT: 1. Common Femoral Vein: 1.1. Compressibility - Fully compressible: Thrombus - None : Flow - Phasic: Augmentation -Normal: Reflux - None. 2. Femoral Vein: 2.1. Compressibility - Fully compressible: Thrombus - None: Flow - Phasic: Augmentation -Normal: Reflux - None. 3. Popliteal Vein: 3.1. Compressibility - Fully compressible: Thrombus - None: Flow - Phasic: Augmentation -Normal: Reflux - None. 4. Posterior Tibial Vein: 4.1. Compressibility - Fully compressible: Thrombus - None: Flow - Phasic: Augmentation -Normal: Reflux - None. 5. Peroneal Vein: 5.1. Compressibility - Fully compressible: Thrombus - None: Flow - Phasic: Augmentation -Normal: Reflux - None. 6. Great Saphenous Vein: 6.1. Not visualized. OTHER FINDINGS: IMPRESSION: No evidence of deep or superficial vein thrombosis of the left lower extremity with excellent venous flow. Normal valve function noted of the left side. Normal venous flow noted in the right common femoral vein.
[2017-10-20 09:42] VITALS: BP 116/68; PULSE 54; RESP 20
[2017-10-20 15:40] VITALS: O2SAT 98
== END 2017-10-20 09:42 | disposition home or self-care (01) ==
LOC: C.ER 06:19
DX: M79.605 Pain in left leg (principal); E78.00 Pure hypercholesterolemia, unspecified; I10 Essential (primary) hypertension; I48.91 Unspecified atrial fibrillation; I25.10 Atherosclerotic heart disease of native coronary artery without angina pectoris; E10.9 Type 1 diabetes mellitus without complications

== ENCOUNTER → 2017-11-15 08:58 | Emergency (ER) | payer MEDICARE ==
[2017-11-15 08:58] VITALS: BMI 31.6
== END | disposition left against medical advice (07) ==
LOC: C.ER 08:58
DX: Z02.89 Encounter for other administrative examinations (principal); R42 Dizziness and giddiness

== ENCOUNTER 2017-11-27 03:55 | Emergency (ER) | payer MEDICARE ==
[2017-11-27 03:56] VITALS: BMI 31.6
[2017-11-27] MEDS ORDERED: Aspirin 325 mg EC Tablets PO STA (05:02)
[2017-11-27] MEDS ORDERED: Aspirin 325 mg EC Tablets PO ONE (05:26)
[2017-11-27 05:28] VITALS: O2SAT 98
--- NOTE | 2017-11-27 05:41 | C.PDOC ---
History Of Present Illness 62 y/o male presents to ED with complaints of ear pain, chest pain, throat pain when swallowing, back pain and chronic neck pain. Patient states he had a bypass 5 years ago. Patient states he took complaint. Time Seen by Provider: 11/27/17 04:41 Chief Complaint (Nursing): Chest Pain History Per: Patient History/Exam Limitations: no limitations Onset/Duration Of Symptoms: Hrs Current Symptoms Are (Timing): Still Present Recent travel outside of the [place]: No Past Medical History Reviewed: Historical Data, Nursing Documentation, Vital Signs Vital Signs: Last Vital Signs Temp 97.9 F 11/27/17 06:04 Pulse 49 L 11/27/17 06:04 Resp 14 11/27/17 06:04 BP 148/61 11/27/17 06:04 Pulse Ox 98 11/27/17 06:43 - Medical History PMH: Anxiety, Asthma, Atrial Fibrillation, CAD, Cardia Arrhythmia, Depression, Diabetes (type I), Deep Vein Thrombosis (LLE), Gall Bladder Disease, Hepatitis ( C), HTN, Hypercholesterolemia, Pancreatitis, Chronic Pain Surgical History: CABG (X2,4 years ago), Cholecystectomy - [facility] Procedures ESOPHAGOGASTRODUODENOSCOPY [EGD] W/CLOSED BIOPSY (01/28/04) INSPECTION OF HEPATOBILIARY DUCT, ENDO (11/25/16) Family History: States: Unknown Family Hx, Diabetes, Hypertension - Social History Hx Tobacco Use: No Hx Alcohol Use: No Hx Substance Use: Yes (Opiates) - Immunization History Hx Tetanus Toxoid Vaccination: Yes Hx Influenza Vaccination: Yes (2016) Hx Pneumococcal Vaccination: No Review Of Systems Constitutional: Negative for: Fever, Chills ENT: Positive for: Ear Pain, Throat Pain Cardiovascular: Positive for: Chest Pain Gastrointestinal: Negative for: Nausea, Vomiting, Diarrhea Musculoskeletal: Positive for: Neck Pain, Back Pain Neurological: Negative for: Weakness, Numbness Psych: Negative for: Suicidal ideation Physical Exam - Physical Exam Appears: Well, Non-toxic, No Acute Distress Skin: Normal Color, Warm, Dry Head: Atraumatic, Normacephalic Eye(s): bilateral: Normal Inspection Ear(s): Bilateral: Normal Oral Mucosa: Moist Throat: No Erythema, No Exudate, No Drooling Neck: Supple, Other (neck collar in place) Chest: Symmetrical, No Tenderness Cardiovascular: Rhythm Regular Respiratory: No Decreased Breath Sounds, No Rales, No Rhonchi, No Wheezing Gastrointestinal/Abdominal: Soft, No Tenderness, No Distention, No Guarding, No Rebound Back: No CVA Tenderness Extremity: No Tenderness, No Deformity Neurological/Psych: Oriented x3, Normal Speech, Normal Cognition ED Course And Treatment - Laboratory Results Result Diagrams: 11/27/17 05:39 11/27/17 05:39 O2 Sat by Pulse Oximetry: 98 (RA) Pulse Ox Interpretation: Normal Medical Decision Making Medical Decision Making: Ordered blood work and CXR. Administered Aspirin and Toradol. EKG Result: - Sinus bradycardia at 51 bpm - 1st degree AV block On re-exam, the patient reports improvement of symptoms. Lungs are CTA, heart is RRR, abdomen is soft, non-tender and tolerating PO well. Ambulatory in the ED with steady gait. Follow up with the medical doctor/clinic within 1-2 days. Return if worsened. Disposition - Disposition Referrals: Michele Whitmore MD [Staff Provider] - Disposition: HOME/ ROUTINE Disposition Time: 06:37 Condition: FAIR Additional Instructions: Follow up with the medical doctor within 1-2 days. Return if worsened. Prescriptions: Acetaminophen [Tylenol] 325 mg PO Q6 PRN #30 tab PRN Reason: Pain, Mild (1-3) Instructions: Viral Upper Respiratory Infection, Adult (DC) Forms: [facility] (Indonesian) - Clinical Impression Clinical Impression: Noncompliance w/medication treatment due to intermit use of medication, Back pain, Upper respiratory infection - PA / [employer] / Resident Statement / has reviewed & agrees with the documentation as recorded. - Scribe Statement The provider has reviewed the documentation as recorded by the Dorie Colin All medical record entries made by the Kleberibshanice were at my direction and personally dictated by me. I have reviewed the chart and agree that the record accurately reflects my personal performance of the history, physical exam, medical decision making, and the department course for this patient. I have also personally directed, reviewed, and agree with the discharge instructions and disposition.
[2017-11-27 05:42] LABS: BASO % 0.4 % (0.0-2.0); EOS % 0.1 % (0.0-4.0); HEMOGLOBIN 11.3 g/dL (12.0-18.0); LYMPH # 1.2 K/uL (1.0-4.3); LYMPH % 13.3 % (20.0-40.0); MEAN CELL VOLUME 78.4 fL (80.0-94.0); MEAN CORPUSCULAR HEMOGLOBIN 25.5 pg (27.0-31.0); MEAN CORPUSCULAR HGB CONC 32.5 g/dL (33.0-37.0); MEAN PLATELET VOLUME 8.4 fL (7.2-11.7); MONO # 0.3 K/uL (0.0-0.8); MONO % 3.4 % (0.0-10.0); NEUT # 7.3 K/uL (1.8-7.0); NEUT % 82.8 % (50.0-75.0); RBC 4.42 Mil/uL (4.40-5.90); WHITE BLOOD COUNT 8.9 K/uL (4.8-10.8)
[2017-11-27 05:55] LABS: ALB/GLOB RATIO 1.1 (1.0-2.1); ALBUMIN 3.9 g/dL (3.5-5.0); ALT/SGPT 95 U/L (21-72); AST/SGOT 64 U/L (17-59); BLOOD UREA NITROGEN 15 mg/dL (9-20); CALCIUM 8.5 mg/dl (8.6-10.4); GFR AFRICAN-AMERICAN > 60; GFR NON-AFRICAN AMERICAN > 60
[2017-11-27 06:07] VITALS: BP 148/61; PULSE 49; RESP 14; TEMP 97.9
--- NOTE | 2017-11-27 08:47 | RAD ---
HISTORY: chest pain COMPARISON: Chest x-ray performed 09/30/17 TECHNIQUE: Chest, one view. FINDINGS: Examination limited by habitus and hypoinflation. LUNGS: Mild venous congestion. No focal consolidation. Please note that chest x-ray has limited sensitivity for the detection of pulmonary masses. PLEURA: No significant pleural effusion identified. No definite pneumothorax . CARDIOVASCULAR: Cardiomegaly. Median sternotomy wires with evidence of CABG. OSSEOUS STRUCTURES: Postsurgical changes left humeral head. VISUALIZED UPPER ABDOMEN: Unremarkable. OTHER FINDINGS: None. IMPRESSION: Mild venous congestion. Cardiomegaly. Median sternotomy wires with evidence CABG.
--- NOTE | 2017-11-29 20:27 | CARD ---
APPROVED REPORT EKG Measurement Heart [id number] <Conclusion> Sinus bradycardia with 1st degree AV block Long QT interval Possible Left atrial enlargement Inferior infarct, age undetermined Abnormal ECG
== END 2017-11-27 06:58 | disposition home or self-care (01) ==
LOC: C.ER 03:55
DX: J06.9 Acute upper respiratory infection, unspecified (principal); M54.9 Dorsalgia, unspecified; Z91.14 Patient's other noncompliance with medication regimen; E78.00 Pure hypercholesterolemia, unspecified; I10 Essential (primary) hypertension; I48.91 Unspecified atrial fibrillation; I25.10 Atherosclerotic heart disease of native coronary artery without angina pectoris
CPT/HCPCS: 71045; 80053; 82948; 84484; 85025; 93005; 96374; 99285; J1885

== ENCOUNTER 2017-11-27 22:43 | Emergency (ER) | payer MEDICARE ==
[2017-11-27 22:43] VITALS: BMI 31.6
[2017-11-27 23:00] VITALS: RESP 18; TEMP 97.9
--- NOTE | 2017-11-28 00:08 | C.PDOC ---
History Of Present Illness Patient sseen earlier today and discharge due to chronic neck pain. States he has broken cervicaal soine in May. last year Chief Complaint (Nursing): Back Pain History Per: Patient History/Exam Limitations: no limitations Onset/Duration Of Symptoms: Days Current Symptoms Are (Timing): Still Present Quality Of Discomfort: Sharp, "Pain" Description Of Injury (Context): neck injury Severity: Moderate Pain Scale Rating Of: 6 Previous Symptoms: Neck Pain, Chronic Pain Associated Symptoms: None Exacerbating Factor(s): Nothing Recent travel outside of the [place]: No Additional History: wearing a cervical collar Additional History Per: Patient Past Medical History Vital Signs: Last Vital Signs Temp 97.9 F 11/27/17 22:59 Pulse 62 11/28/17 03:25 Resp 18 11/28/17 03:25 BP 151/59 H 11/28/17 03:25 Pulse Ox 95 11/28/17 04:37 - Medical History PMH: Anxiety, Asthma, Atrial Fibrillation, CAD, Cardia Arrhythmia, Depression, Diabetes (type I), Deep Vein Thrombosis (LLE), Gall Bladder Disease, Hepatitis ( C), HTN, Hypercholesterolemia, Pancreatitis, Chronic Pain Surgical History: CABG (X2,4 years ago), Cholecystectomy - [facility] Procedures ESOPHAGOGASTRODUODENOSCOPY [EGD] W/CLOSED BIOPSY (01/28/04) INSPECTION OF HEPATOBILIARY DUCT, ENDO (11/25/16) Family History: States: Unknown Family Hx, Diabetes, Hypertension - Social History Hx Tobacco Use: No Hx Alcohol Use: No Hx Substance Use: Yes (Opiates) - Immunization History Hx Tetanus Toxoid Vaccination: Yes Hx Influenza Vaccination: Yes (2016) Hx Pneumococcal Vaccination: No ED Course And Treatment O2 Sat by Pulse Oximetry: 95 Disposition Counseled Patient/Family Regarding: Diagnosis - Disposition Referrals: [facility] [Outside] Disposition: HOME/ ROUTINE Disposition Time: 04:34 Condition: STABLE Prescriptions: Cyclobenzaprine [Cyclobenzaprine HCl] 10 mg PO TIDPC #14 tab Naproxen 375 mg PO TIDPC #20 tablet Instructions: Generalized Neck Pain Forms: [facility] (Maltese) - POA Present On Arrival: None - Clinical Impression Clinical Impression: Neck pain
--- NOTE | 2017-11-28 01:18 | CT ---
EXAM: CT Cervical Spine Without Intravenous Contrast CLINICAL HISTORY: 62 years old, male; Pain; Neck pain; Additional info: Neck pian/ HX of injury and fracture TECHNIQUE: Axial computed tomography images of the cervical spine without intravenous contrast. All CT scans at this facility use one or more dose reduction techniques, viz.: automated exposure control; ma/kV adjustment per patient size (including targeted exams where dose is matched to indication; i.e. head); or iterative reconstruction technique. Coronal and sagittal reformatted images were created and reviewed. COMPARISON: CT - CERVICAL SPINE W/O CONTRAST 2017-07-25 06:24 FINDINGS: Vertebrae: No acute fracture. Healed fracture deformity anterior inferior C4 vertebral body. Straightening of cervical spine. Discs/spinal canal/neural foramina: Mild spondylosis. No significant spinal stenosis. Other bones/joints: Median sternotomy. Soft tissues: Unremarkable. Vasculature: Mild atherosclerotic disease of aorta. Thyroid: Prominent thyroid gland, grossly stable. Lung apices: Unremarkable as visualized. IMPRESSION: 1. No acute fracture. 2. Incidental/non-acute findings are described above.
[2017-11-28 06:20] VITALS: BP 152/64; PULSE 58; O2SAT 96
== END 2017-11-28 06:21 | disposition home or self-care (01) ==
LOC: C.ER 22:43
DX: M54.2 Cervicalgia (principal); E78.00 Pure hypercholesterolemia, unspecified; I10 Essential (primary) hypertension; I25.10 Atherosclerotic heart disease of native coronary artery without angina pectoris; I48.91 Unspecified atrial fibrillation
CPT/HCPCS: 72125; 96372; 99285; J1885

== ENCOUNTER 2017-12-25 19:30 | Emergency (ER) | payer MEDICARE ==
[2017-12-25 19:30] VITALS: BMI 31.6
--- NOTE | 2017-12-25 20:01 | C.PDOC ---
History Of Present Illness 62 year old male is brought to the ED by ambulance for evaluation of lower back pain which began this afternoon. Patient's prior records reviewed; he has had nearly 20 prior visits within the past 2 years for complaints of pain and/or overdose. Patient has undergone extensive radiology studies, including a scan that was negative for DVT on 09/2017. He was also evaluated for heroin overdose on 04/2017 at [facility]. Patient is asleep upon ED arrival and denies trauma/injuries or falls, urinary/bowel incontinence, and extremity numbness/weakness. Time Seen by Provider: 12/25/17 19:51 Chief Complaint (Nursing): Lower Extremity Problem/Injury History Per: Patient, EMS History/Exam Limitations: no limitations Onset/Duration Of Symptoms: Hrs Current Symptoms Are (Timing): Still Present Additional History Per: Patient, EMS Past Medical History Reviewed: Historical Data, Nursing Documentation, Vital Signs Vital Signs: Last Vital Signs Temp 98.3 F 12/25/17 20:45 Pulse 88 12/25/17 20:45 Resp 20 12/25/17 20:45 BP 132/72 12/25/17 20:45 Pulse Ox 95 12/25/17 22:27 - Medical History PMH: Anxiety, Asthma, Atrial Fibrillation, CAD, Cardia Arrhythmia, Depression, Diabetes (type I), Deep Vein Thrombosis (LLE), Gall Bladder Disease, Hepatitis ( C), HTN, Hypercholesterolemia, Pancreatitis, Chronic Pain Surgical History: CABG (X2,4 years ago), Cholecystectomy - [facility] Procedures ESOPHAGOGASTRODUODENOSCOPY [EGD] W/CLOSED BIOPSY (01/28/04) INSPECTION OF HEPATOBILIARY DUCT, ENDO (11/25/16) Family History: States: Diabetes, Hypertension - Social History Hx Tobacco Use: No Hx Alcohol Use: Yes Hx Substance Use: Yes (Opiates) - Immunization History Hx Tetanus Toxoid Vaccination: No Hx Influenza Vaccination: No Hx Pneumococcal Vaccination: No Review Of Systems Genitourinary: Negative for: Incontinence Musculoskeletal: Positive for: Back Pain (lower ) Neurological: Negative for: Weakness, Numbness Physical Exam - Physical Exam Appears: Non-toxic, No Acute Distress, Other (argumentative, confrontational, circumloquacious) Skin: Normal Color, Warm, Dry Head: Atraumatic, Normacephalic Eye(s): bilateral: Other (pinpoint pupils ) Oral Mucosa: Moist Neck: Supple Chest: Symmetrical, No Deformity, No Tenderness Cardiovascular: Rhythm Regular, No Murmur Respiratory: Normal Breath Sounds, No Rales, No Rhonchi, No Wheezing Back: No Decreased ROM, Other (full ROM ) Extremity: Normal ROM, No Tenderness, No Calf Tenderness, Capillary Refill ( less than 2 seconds ), No Swelling Neurological/Psych: Oriented x3, Normal Speech, Normal Cognition Gait: Steady ED Course And Treatment O2 Sat by Pulse Oximetry: 95 (on RA) Pulse Ox Interpretation: Normal Progress Note: Motrin PO administered. Medical Decision Making Medical Decision Making: chronic heroine abuse, chronic lower back pain many ED visits [facility] and [facility] ED extensive radiology for this pt with no sig findings recent eval for heroine OD 10/06:LS spine films neg 07/06 CT Abd/pelvis with normal LS spine pinpoint pupils and obvious intoxication malingering Disposition Doctor Will See Patient In The: Office Counseled Patient/Family Regarding: Studies Performed, Diagnosis - Disposition Referrals: Alcoholics Anonymous [Outside] [facility] [place] [Outside] [facility] [Outside] [facility] [Outside] Disposition: HOME/ ROUTINE Disposition Time: 20:00 Condition: GOOD Additional Instructions: tylenol or motrin for your lower back pain Seek outpatient detox and psych services for your ongoing heroine abuse issues. Instructions: Low Back Pain in Adults, Drug Abuse and Drug Addiction (DC), Opioid Use Disorder Forms: [facility] (Armenian) - Clinical Impression Clinical Impression: Low back pain - Scribe Statement The provider has reviewed the documentation as recorded by the Scribe (Theodora Negro) Provider Attestation: All medical record entries made by the Scribe were at my direction and personally dictated by me. I have reviewed the chart and agree that the record accurately reflects my personal performance of the history, physical exam, medical decision making, and the department course for this patient. I have also personally directed, reviewed, and agree with the discharge instructions and disposition.
[2017-12-25 20:48] VITALS: BP 132/72; PULSE 88; RESP 20; TEMP 98.3
[2017-12-25 22:26] VITALS: O2SAT 95
== END 2017-12-25 20:45 | disposition home or self-care (01) ==
LOC: C.ER 19:30
DX: M54.5 Low back pain (principal)

== ENCOUNTER 2018-01-04 21:48 | Emergency (ER) | payer MEDICARE ==
[2018-01-04 21:48] VITALS: BMI 31.6
--- NOTE | 2018-01-04 22:11 | C.PDOC ---
History Of Present Illness 62 y/o male brought in by ambulance from police department accompanied by [facility] pending incarceration. Patient is a well-known polysubstance abuser, with many chronic pain issues, and many prior ER visits due to heroin and alcohol abuse. Upon tranfer from [facility] complained of [facility] pain, for which he was brought to the ER. On arrival patient is only complaining of neck pain. States pain has been ongoing for some time now. Patient has been seen here in the past for same complaint, indeed has h/o cervical fracture and has had 2 CT's of C-spine which were unremarkable, most recently on 11/28/17 during an overnight ED evaluation. Denies new neck trauma today, denies physical altercation or fall. No new neurological deficit. Time Seen by Provider: 01/04/18 22:04 Chief Complaint (Nursing): Medical Clearance History Per: Patient History/Exam Limitations: no limitations Onset/Duration Of Symptoms: Days Current Symptoms Are (Timing): Still Present Additional History Per: EMS Past Medical History Reviewed: Historical Data, Nursing Documentation, Vital Signs Vital Signs: Last Vital Signs Temp 98.0 F 01/04/18 22:02 Pulse 86 01/04/18 22:25 Resp 18 01/04/18 22:02 BP 153/77 H 01/04/18 22:02 Pulse Ox 96 01/04/18 22:51 - Medical History PMH: Anxiety, Asthma, Atrial Fibrillation, CAD, Cardia Arrhythmia, Depression, Diabetes (type I), Deep Vein Thrombosis (LLE), Gall Bladder Disease, Hepatitis ( C), HTN, Hypercholesterolemia, Pancreatitis, Chronic Pain Surgical History: CABG (X2,4 years ago), Cholecystectomy - [facility] Procedures ESOPHAGOGASTRODUODENOSCOPY [EGD] W/CLOSED BIOPSY (01/28/04) INSPECTION OF HEPATOBILIARY DUCT, ENDO (11/25/16) Family History: States: Diabetes, Hypertension - Social History Hx Tobacco Use: No Hx Alcohol Use: Yes Hx Substance Use: Yes (Opiates) - Immunization History Hx Tetanus Toxoid Vaccination: No Hx Influenza Vaccination: No Hx Pneumococcal Vaccination: No Review Of Systems Except As Marked, All Systems Reviewed And Found Negative. Constitutional: Negative for: Fever Cardiovascular: Negative for: Chest Pain Respiratory: Negative for: Shortness of Breath Musculoskeletal: Positive for: Neck Pain Physical Exam - Physical Exam Appears: No Acute Distress, Other (AOB, Belligerent, bizarre, moving neck freely and occasionally without apparent pain.) Skin: Normal Color, Warm, Dry Head: Atraumatic, Normacephalic Eye(s): bilateral: PERRL, EOMI, Other (Dilated pupils) Nose: Normal Oral Mucosa: Moist Throat: Normal, No Erythema, No Exudate Neck: Normal ROM, No Midline Cervical Tenderness, Supple (no trauma, no lacs/ rashes, no sig ASHER) Chest: Symmetrical, No Tenderness Cardiovascular: Rhythm Regular, No Murmur Respiratory: Normal Breath Sounds, No Accessory Muscle Use Gastrointestinal/Abdominal: Soft, No Tenderness, No Distention Extremity: Bilateral: Atraumatic, Normal ROM Neurological/Psych: Oriented x3, Other (Agitated but responsive to questions) ED Course And Treatment ECG: Interpreted By Me, Viewed By Me ECG Rhythm: Sinus Rhythm Rate From EC O2 Sat by Pulse Oximetry: 96 (RA) Pulse Ox Interpretation: Normal Medical Decision Making Medical Decision Making: Impression: under arrest by [employer], alleged shoplifting, c/o acute on chronic neck pain neurologically intact argumentative, foul-mouthed, confrontational. no acute issues pt denies CP seem intoxicated and/or narcotics withdrawal (pupilar mydriasis) no w/u indicated at this time Progress: EKG is normal. Finger stick is 142. suspect also malingering to defer incarceration as pt's complaints are tangential and seem confabulatory. Medically Cleared for incarceration Disposition Doctor Will See Patient In The: Office Counseled Patient/Family Regarding: Studies Performed, Diagnosis - Disposition Referrals: Alcoholics Anonymous [Outside] [facility] [Outside] [facility] [Outside] [facility] [Outside] [facility] at [facility] [Outside] [facility] [Outside] Disposition: RELEASED IN POLICE CUSTODY Disposition Time: 22:11 Condition: GOOD Additional Instructions: PT IS MEDICALLY AND PSYCHIATRICALLY CLEARED FOR INCARCERATION pt may continue to seek outpatient assistance for substance abuse and mental health issues after incarceration. Instructions: Neck Pain, Polysubstance Abuse Forms: [facility] (Persian) - Clinical Impression Clinical Impression: Drug abuse, Neck pain - Scribe Statement The provider has reviewed the documentation as recorded by the Scribe (Vero Sanchez) Provider Attestation: All medical record entries made by the Scribe were at my direction and personally dictated by me. I have reviewed the chart and agree that the record accurately reflects my personal performance of the history, physical exam, medical decision making, and the department course for this patient. I have also personally directed, reviewed, and agree with the discharge instructions and disposition.
[2018-01-04 22:16] VITALS: BP 153/77; RESP 18; TEMP 98; O2SAT 96
[2018-01-04 22:42] VITALS: PULSE 86
--- NOTE | 2018-01-06 11:41 | CARD ---
APPROVED REPORT EKG Measurement Heart [id number] <Conclusion> Sinus bradycardia with 1st degree AV block Possible Left atrial enlargement Prolonged QT Abnormal ECG
== END 2018-01-04 23:40 ==
LOC: C.ER 21:48
DX: M54.2 Cervicalgia (principal); F19.10 Other psychoactive substance abuse, uncomplicated; E10.9 Type 1 diabetes mellitus without complications; Z65.3 Problems related to other legal circumstances

== ENCOUNTER 2018-03-10 16:45 | Emergency (ER) | payer MEDICARE ==
[2018-03-10 16:46] VITALS: BMI 31.6
--- NOTE | 2018-03-10 17:09 | C.PDOC ---
History Of Present Illness <Mahogany Tong - Last Filed: 03/10/18 18:43> <Eduard Olguin - Last Filed: 03/11/18 01:58> POOR HISTORIAN, LIMITED DUE CLIN COND 62-YEAR-OLD MALE, BIBA FOR AMS UNK DURATION. FOUND ON STREET GROSS INTOX UNK SUBSTANCE. EMS NOTIFIED BY PT FRIENDS WHO NOTED PT'S AMS. PT NO COMPLAINTS, UNCOOP W EXAM. RECENT DC FROM [facility] [place] S/P MULT FX REPAIRS S/P FALL. 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 +h/o cervical fracture and has had 2 CT's of C-spine which were unremarkable, most recently on 11/28/17 during an overnight ED evaluation. ROS UTO EXAM MOD DIST HEENT PINPOINT PUPILS, SLUGGISH; HEALING R PARIETAL/TEMPORAL WOUND SUTURES IN PLACE. NO SWELL, ERYTHEMA LUNGS CTA B/L NO W/R/R CV RRR ABD NEG EXT R FOREARM EXT FIXATOR IN PLACE, DRESSING CLEAN. L FOREARM THUMB SPICA SPLINT IN PLACE, CLEAN. NO CYANOSIS. SKIN R THIGH LAT POST OP WOUND W STERISTRIPS IN PLACE. NEURO UNCOOP, POOR EFFORT. FOCAL RESPONSE TO LIGHT STIM PSYCH GROSS PROBABLE NARC INTOX. REMAINDER NEG (Mahogany Tong) <Mahogany Tong - Last Filed: 03/10/18 18:43> <Eduard Olguin - Last Filed: 03/11/18 01:58> Time Seen by Provider: 03/10/18 16:53 Chief Complaint (Nursing): Altered Mental Status Past Medical History Reviewed: Historical Data, Nursing Documentation, Vital Signs - Medical History PMH: Anxiety, Asthma, Atrial Fibrillation, CAD, Cardia Arrhythmia, Depression, Diabetes (type I), Deep Vein Thrombosis (LLE), Gall Bladder Disease, Hepatitis ( C), HTN, Hypercholesterolemia, Pancreatitis, Chronic Pain Surgical History: CABG (X2,4 years ago), Cholecystectomy Family History: States: Diabetes, Hypertension - Social History Hx Tobacco Use: No Hx Alcohol Use: Yes Hx Substance Use: Yes (Opiates) - Immunization History Hx Tetanus Toxoid Vaccination: No Hx Influenza Vaccination: No Hx Pneumococcal Vaccination: No <Mahogany Tong - Last Filed: 03/10/18 18:43> Vital Signs: Last Vital Signs Temp 98.6 F 06/21/18 17:04 Pulse 64 03/11/18 00:25 Resp 13 03/11/18 00:25 BP 118/61 03/11/18 00:25 Pulse Ox 97 03/11/18 00:25 - [facility] Procedures ESOPHAGOGASTRODUODENOSCOPY [EGD] W/CLOSED BIOPSY (01/28/04) INSPECTION OF HEPATOBILIARY DUCT, ENDO (11/25/16) Review Of Systems Review Of Systems: ROS cannot be obtained secondary to pt's inabilty to answer questions. <RanMahogany - Last Filed: 03/10/18 18:43> Physical Exam - Physical Exam Appears: Non-toxic, In Acute Distress, Other ( UNCOOP, POOR EFFORT. FOCAL RESPONSE TO LIGHT STIM) Skin: Other (R THIGH LAT POST OP WOUND W STERISTRIPS IN PLACE. ) Head: Other (PINPOINT PUPILS, SLUGGISH; HEALING R PARIETAL/TEMPORAL WOUND SUTURES IN PLACE. NO SWELL, ERYTHEMA) Oral Mucosa: Moist Lips: Normal Appearing Neck: Normal ROM Chest: Symmetrical Cardiovascular: Rhythm Regular, No Murmur Respiratory: Normal Breath Sounds, No Accessory Muscle Use, No Rales, No Rhonchi , No Wheezing Gastrointestinal/Abdominal: Soft, No Tenderness Extremity: No Deformity, Other (R FOREARM EXT FIXATOR IN PLACE, DRESSING CLEAN. L FOREARM THUMB SPICA SPLINT IN PLACE, CLEAN. NO CYANOSIS.) Neurological/Psych: Other (GROSS PROBABLE NARC INTOX.) <RanMahogany - Last Filed: 03/10/18 18:43> ED Course And Treatment - Laboratory Results Result Diagrams: 03/10/18 18:15 03/10/18 18:15 ECG: Interpreted By De ECG Rhythm: Sinus Rhythm, 1st Degree HB ECG Interpretation: Normal Rate From EC O2 Sat by Pulse Oximetry: 98 Pulse Ox Interpretation: Normal - Radiology CXR: Interpreted by Me CXR Interpretation: Yes: No Acute Disease <Mahogany Tong - Last Filed: 03/10/18 18:43> - Laboratory Results Result Diagrams: 03/10/18 18:15 03/10/18 18:15 <Eduard Olguin - Last Filed: 03/11/18 01:58> Progress - Data Reviewed Data Reviewed: Lab, Diagnostic imaging, EKG, Old records - Critical Care Citical Care: Excluding Proc Time Critical Care Time: 90 minutes <Mahogany Tong - Last Filed: 03/10/18 18:43> <DwainenicoleEduard - Last Filed: 03/11/18 01:58> - Re-Evaluation Re-evaluation Note: 03/10/18 18:15 MILD INTOX, AWAKES TO VERBAL STIM. CONTINUES TO FALL ASLEEP IMMEDIATELY. VSS. LABS, CT PENDING. 03/10/18 18:41 DC HGB FROM [facility] [place] 7.5 (Mahogany Tong) - AMA Patient Left Against Medical Advice: The patient declines admission to the hospital and wishes to leave the Emergency Department. This action is against my medical advice. This decision was made with informed refusal. The patient was told that admission to the hospital is necessary. Explanation of the reasons why were discussed. The risks of leaving were explained to the patient and include, but are not limited to, worsening of known or currently unknown conditions, permanent disability and from undiagnosed or untreated conditions. The patient has the capacity to make this informed decision and understands my explanation of the current medical problem and risks of leaving. The patient voluntarily accepts these risks and signed an AMA form documenting our conversation. The patient was given the opportunity to ask questions and reconsider. The patient was encouraged to return to the Emergency Department at any time for further care. Disposition - Disposition Disposition Time: 19:00 <Mahogany Tong - Last Filed: 03/10/18 18:43> Counseled Patient/Family Regarding: Studies Performed, Diagnosis, Need For Followup <Eduard Olguin - Last Filed: 03/11/18 01:58> - Disposition Referrals: [facility] [Outside] [facility] [Outside] Disposition: AGAINST MEDICAL ADVICE Condition: STABLE Additional Instructions: Do follow up with your orthopedic doctor for the care of your fractures. Instructions: Polysubstance Abuse (DC) Forms: [facility] (Singaporean) - Clinical Impression Clinical Impression: Opioid abuse - Scribe Statement The provider has reviewed the documentation as recorded by the Scribe (Dinesh Garcia) <Mahogany Tong - Last Filed: 03/10/18 18:43> <Eduard Olguin - Last Filed: 03/11/18 01:58> - Scribe Statement Provider Attestation: All medical record entries made by the Scribe were at my direction and personally dictated by me. I have reviewed the chart and agree that the record accurately reflects my personal performance of the history, physical exam, medical decision making, and the department course for this patient. I have also personally directed, reviewed, and agree with the discharge instructions and disposition. (Mahogany Tong) Physician Patient Turnover Patient Signed Over To: Eduard Olguin Handoff Comments: FU CT, LABS, DISPO <Mahogany Tong - Last Filed: 03/10/18 18:43> PROCEDURES - EJ/Peripheral Line Consent Obtained: verbal consent Time Out Performed: Yes Skin Cleansed in Sterile Fashion: Yes Size: 20 IV Secured and Dressing Applied: Yes Patient Tolerated Procedure: Well <Mahogany Tong - Last Filed: 03/10/18 18:43>
--- NOTE | 2018-03-10 18:09 | RAD ---
PROCEDURE: CHEST RADIOGRAPH, 1 VIEW HISTORY: AMS COMPARISON: Chest radiograph dated 11/27/2017. FINDINGS: LUNGS: Clear. PLEURA: No pneumothorax or pleural fluid seen. CARDIOVASCULAR: Prior sternotomy with sternal wires and surgical clips in place. Atherosclerotic aortic calcifications. Cardiomediastinal silhouette stably enlarged. OSSEOUS STRUCTURES: Unchanged. VISUALIZED UPPER ABDOMEN: Normal. OTHER FINDINGS: None. IMPRESSION: No active disease.
[2018-03-10 18:11] LABS: ARTERIAL BLOOD GAS HCO3 19.4 mmol/L (21-28); ARTERIAL BLOOD GAS O2 SAT 100.3 % (95-98); ARTERIAL BLOOD GAS PCO2 38 mm/Hg (35-45); ARTERIAL BLOOD GAS PO2 170 mm/Hg (80-100); ARTERIAL BLOOD GAS TCO2 19.9 mmol/L (22-28)
[2018-03-10 18:20] LABS: BASO % 0.3 % (0.0-2.0); EOS % 0.1 % (0.0-4.0); HEMOGLOBIN 7.5 g/dL (12.0-18.0); LYMPH # 1.1 K/uL (1.0-4.3); MEAN CELL VOLUME 81.3 fL (80.0-94.0); MEAN CORPUSCULAR HEMOGLOBIN 25.9 pg (27.0-31.0); MEAN CORPUSCULAR HGB CONC 31.9 g/dL (33.0-37.0); MEAN PLATELET VOLUME 7.8 fL (7.2-11.7); MONO # 0.5 K/uL (0.0-0.8); MONO % 4.9 % (0.0-10.0); NEUT # 8.2 K/uL (1.8-7.0); NEUT % 83.7 % (50.0-75.0); RBC 2.89 Mil/uL (4.40-5.90); RED CELL DISTRIBUTION WIDTH 16.4 % (11.5-14.5); WHITE BLOOD COUNT 9.8 K/uL (4.8-10.8)
[2018-03-10 18:33] LABS: ALB/GLOB RATIO 1.1 (1.0-2.1); ALBUMIN 3.5 g/dL (3.5-5.0); ALT/SGPT 36 U/L (21-72); AST/SGOT 25 U/L (17-59); BLOOD UREA NITROGEN 13 mg/dL (9-20); CALCIUM 8.4 mg/dl (8.6-10.4); GFR AFRICAN-AMERICAN > 60; GFR NON-AFRICAN AMERICAN > 60; INR 1.2; PROTHROMBIN TIME 12.7 SECONDS (9.7-12.2)
[2018-03-10] MEDS ORDERED: SODIUM CHLORIDE 0.9% IV ONE (18:42)
[2018-03-10 20:00] LABS: SQUAMOUS EPITHIAL < 1 /hpf (0-5); URINE BILIRUBIN NEGATIVE (NEGATIVE); URINE BLOOD NEGATIVE (NEGATIVE); URINE CLARITY Clear (Clear); URINE COLOR Yellow (YELLOW); URINE GLUCOSE (UA) 3+ mg/dL (Normal); URINE LEUKOCYTE ESTERASE NEG Leu/uL (Negative); URINE PROTEIN 1+ mg/dL (NEGATIVE); URINE UROBILINOGEN NORMAL mg/dL (0.2-1.0)
[2018-03-10 20:07] LABS: BARBITURATES, UR NEGATIVE (NEGATIVE); PHENCYCLIDINE, UR NEGATIVE (NEGATIVE)
[2018-03-10 20:11] LABS: BENZODIAZEPINES, UR POSITIVE (NEGATIVE); OPIATES, UR POSITIVE (NEGATIVE)
[2018-03-10 20:40] LABS: VENOUS BLOOD GAS BASE EXCESS 4.4 mmol/L (0.0-2.0); VENOUS BLOOD GAS PCO2 52 mmHg (40-60); VENOUS BLOOD GAS PO2 37 mm/Hg (30-55); VENOUS BLOOD PH 7.38 (7.32-7.43)
[2018-03-11] MEDS ORDERED: Oxycodone/Acetaminophen 5/325 mg Tab PO STA (03:11)
[2018-03-11] MEDS ORDERED: Oxycodone/Acetaminophen 5/325 mg Tab ONE (03:13)
[2018-03-11 03:19] VITALS: TEMP 98.3
[2018-03-11 06:20] VITALS: BP 134/62; PULSE 70; RESP 19; O2SAT 99
--- NOTE | 2018-03-11 09:18 | CT ---
EXAM: CT Head Without Intravenous Contrast EXAM DATE/TIME: Examination ordered 03/10/2018 5:39 PM. Image number total count reviewed 384 CLINICAL HISTORY: The patient is 62 years old and is male; Condition or disease; Other: AMS; Patient HX: Past trauma from fall Facility exam id and description: Ct heads head w/o contrast TECHNIQUE: Axial computed tomography images of the head/brain without intravenous contrast. All CT scans at this facility use at least one of these dose optimization techniques: automated exposure control; mA and/or kV adjustment per patient size (includes targeted exams where dose is matched to clinical indication); or iterative reconstruction. Coronal and sagittal reformatted images were created and reviewed. COMPARISON: CT - HEAD W/O CONTRAST 2017-08-02 21:06 FINDINGS: BRAIN: No hemorrhage. No significant white matter disease. No edema. VENTRICLES: Unremarkable. No ventriculomegaly. BONES/JOINTS: Unremarkable. No acute fracture. SOFT TISSUES: Right parietal soft tissue swelling/hematoma. SINUSES: Unremarkable as visualized. No acute sinusitis. MASTOID AIR CELLS: Unremarkable as visualized. No mastoid effusion. IMPRESSION: Right parietal soft tissue swelling/hematoma.
--- NOTE | 2018-03-11 11:10 | CARD ---
APPROVED REPORT EKG Measurement Heart [id number] <Conclusion> Sinus rhythm with 1st degree AV block Nonspecific T wave abnormality Prolonged QT Abnormal ECG
== END 2018-03-11 07:27 | disposition left against medical advice (07) ==
LOC: C.ER 16:45
DX: F11.10 Opioid abuse, uncomplicated (principal); I25.10 Atherosclerotic heart disease of native coronary artery without angina pectoris; I10 Essential (primary) hypertension; E78.00 Pure hypercholesterolemia, unspecified; E11.9 Type 2 diabetes mellitus without complications; Z87.891 Personal history of nicotine dependence
CPT/HCPCS: 70450; 71045; 80053; 81001; 82803; 82948; 84484; 85025; 85610; 85730; 86850; 86900; 93005; 99285; G0480; J7030

== ENCOUNTER 2018-03-23 14:38 | Emergency (ER) | payer MEDICARE ==
[2018-03-23 15:02] VITALS: TEMP 98.7
[2018-03-23] MEDS ORDERED: Sodium Chloride 0.9% 1,000 ML IV ONE (15:12)
[2018-03-23 15:19] VITALS: BMI 32.3
[2018-03-23 15:34] LABS: BASO % 0.7 % (0.0-2.0); EOS # 0.1 K/uL (0.0-0.7); EOS % 1.2 % (0.0-4.0); HEMOGLOBIN 8.4 g/dL (12.0-18.0); LYMPH # 1.2 K/uL (1.0-4.3); LYMPH % 18.9 % (20.0-40.0); MEAN CELL VOLUME 76.8 fL (80.0-94.0); MEAN CORPUSCULAR HEMOGLOBIN 24.2 pg (27.0-31.0); MEAN CORPUSCULAR HGB CONC 31.5 g/dL (33.0-37.0); MEAN PLATELET VOLUME 7.2 fL (7.2-11.7); MONO # 0.5 K/uL (0.0-0.8); MONO % 7.1 % (0.0-10.0); NEUT # 4.7 K/uL (1.8-7.0); NEUT % 72.1 % (50.0-75.0); NRBC % 0.2 % (0.0-2.0); RBC 3.46 Mil/uL (4.40-5.90); RED CELL DISTRIBUTION WIDTH 17.1 % (11.5-14.5); WHITE BLOOD COUNT 6.5 K/uL (4.8-10.8)
[2018-03-23 15:43] LABS: INR 1.1; PROTHROMBIN TIME 12.4 SECONDS (9.7-12.2)
[2018-03-23 15:53] LABS: ALBUMIN 4.1 g/dL (3.5-5.0); ALT/SGPT 50 U/L (21-72); AST/SGOT 53 U/L (17-59); BLOOD UREA NITROGEN 16 mg/dL (9-20); CALCIUM 8.8 mg/dl (8.6-10.4); GFR AFRICAN-AMERICAN > 60; GFR NON-AFRICAN AMERICAN > 60
[2018-03-23] MEDS ORDERED: Dextrose 50% SYRINGE Inj (50 ml) IV STA (15:54)
[2018-03-23] MEDS ORDERED: Dextrose 50% SYRINGE Inj (50 ml) ONE (15:58)
--- NOTE | 2018-03-23 16:06 | C.PDOC ---
History Of Present Illness 62yo male,IDDM, brought to ER by EMS for evaluation as patient was found altered by his family at home. Patient is well known to provider and facility for multiple visits in past due to poly-substance abuse. At present time, pt is awake, alert but somnolent. Noted B/L wrist/hands surgical pins, s/p multiple recent fracture repairs after a fall. A full HPI and ROS is limited due to patient's intoxicated state. Time Seen by Provider: 03/23/18 14:47 Chief Complaint (Nursing): Substance Abuse History Per: EMS History/Exam Limitations: clinical condition Current Symptoms Are (Timing): Still Present Past Medical History Reviewed: Historical Data, Nursing Documentation, Vital Signs Vital Signs: Last Vital Signs Temp 98.7 F 03/23/18 14:42 Pulse 73 03/23/18 17:06 Resp 18 03/23/18 17:06 BP 101/54 L 03/23/18 17:06 Pulse Ox 96 03/23/18 18:50 - Medical History PMH: Anxiety, Asthma, Atrial Fibrillation, CAD, Cardia Arrhythmia, Depression, Diabetes (type I), Deep Vein Thrombosis, Gall Bladder Disease, Hepatitis (C), HTN, Hypercholesterolemia, Pancreatitis, Chronic Pain Surgical History: CABG, Cholecystectomy - [facility] Procedures ESOPHAGOGASTRODUODENOSCOPY [EGD] W/CLOSED BIOPSY (01/28/04) INSPECTION OF HEPATOBILIARY DUCT, ENDO (11/25/16) Family History: States: Unknown Family Hx, Diabetes, Hypertension - Social History Hx Tobacco Use: No Hx Alcohol Use: Yes Hx Substance Use: Yes - Immunization History Hx Tetanus Toxoid Vaccination: No Hx Influenza Vaccination: No Hx Pneumococcal Vaccination: No Review Of Systems Review Of Systems: ROS cannot be obtained secondary to pt's inabilty to answer questions. Physical Exam - Physical Exam Appears: Well, Non-toxic, Other (somnolent) Skin: Normal Color, Warm, Pale Head: Atraumatic, Normacephalic Eye(s): bilateral: PERRL (B/L pin-point pupil, reactive to light B/L) Nose: No Flaring, No Discharge Oral Mucosa: Moist, No Drooling Throat: No Drooling Neck: Normal ROM, Trachea Midline, No Midline Cervical Tenderness, No Paracervical Tenderness, No Step Off Deformity, Supple Chest: Symmetrical Cardiovascular: Rhythm Regular Respiratory: No Decreased Breath Sounds, No Accessory Muscle Use, No Stridor, No Wheezing Gastrointestinal/Abdominal: Soft, No Tenderness, No Distention, No Guarding Back: No CVA Tenderness Extremity: Normal ROM (FAROM of B/L hands with out difficulty or limitation.), Capillary Refill (les than 2 sec to B/L hands), No Deformity, Swelling (mild B/ L hands edema. No cellulitis.), Other (Right wrist/hand inserted surgical wires over radial asepct. Left hand small exposed pin noted to dorsal asepct over 1st MCB. Mild diffuse edema B/L hands, no erythema, no wound draining. no proximal streaking.) Neurological/Psych: Oriented x3, No Normal Speech (slurred, slight), Normal Motor, Normal Sensation, Normal Reflexes Gait: Unsteady ED Course And Treatment - Laboratory Results Result Diagrams: 03/23/18 15:31 03/23/18 15:31 Lab Interpretation: Abnormal ECG: Interpreted By Me, Viewed By Me ECG Rhythm: Sinus Rhythm Interpretation Of ECG: SR@71/min 1st degree AV block, LAD, no acute T wave or ST -T Changes. O2 Sat by Pulse Oximetry: 96 (RA) Pulse Ox Interpretation: Normal - Other Rad Left hnd X-Ray: Read By Radiologist Interpretation: PROCEDURE: Left Hand Radiographs. HISTORY: pain, FB. COMPARISON: None. FINDINGS: BONES: Subacute intra-articular fracture of the 1st metacarpal base transfixed by a pin. Periosteal reaction noted adjacent to the fracture site. JOINTS: Degenerative changes. SOFT TISSUES: Normal. OTHER FINDINGS: None. IMPRESSION: Subacute intra-articular fracture of the base of the 1st metacarpal transfixed by external pin. Progress Note: Labs, EKG and Urinalysis ordered. Patient give Dextrose IV and IV fluids. Pt was OBS in ED for 5 hourss. On re-eval, pt is more AAO#3, express concern about his Left hand pin " sticking out. I took all other pins and that one cant take out", asking me to removed Left hand pin. Xray review (+ ) Left 1st proximal phalanx comminuted fx. Pt became combative and wisg to leave now. Risk vs benefits discussed with patient, admission offered due to hypoglycemia, pt erfused and wish to leave. Pt has full mental capasity to make decision. Pt advised to F/U with PMD in 1 days for re-eavl. Pt reports, has scheduled ortho appoitment on 03/28/18 and will to F/U. Pt again refused admission, refused to sign AMA papers and left. Against Medical Advice - AMA Patient Left Against Medical Advice: The patient declines admission to the hospital and wishes to leave the Emergency Department. This action is against my medical advice. This decision was made with informed refusal. The patient was told that admission to the hospital is necessary. Explanation of the reasons why were discussed. The risks of leaving were explained to the patient and include, but are not limited to, worsening of known or currently unknown conditions, permanent disability and from undiagnosed or untreated conditions. The patient has the capacity to make this informed decision and understands my explanation of the current medical problem and risks of leaving. The patient voluntarily accepts these risks and signed an AMA form documenting our conversation. The patient was given the opportunity to ask questions and reconsider. The patient was encouraged to return to the Emergency Department at any time for further care. Critical Care Time - Critical Care Note Total Time (in mins): 40 Comments: hypoglycemic Documented critical care: time excludes all time spent performing seperately billable procedures. Disposition - Disposition Disposition: AGAINST MEDICAL ADVICE Disposition Time: 18:44 Condition: STABLE Forms: [facility] (Chinese) - Clinical Impression Clinical Impression: Hypoglycemia, Polysubstance abuse, S/P wrist surgery - PA / COMPLETIONS ENGINEER / Resident Statement MD/DO has reviewed & agrees with the documentation as recorded. - Scribe Statement The provider has reviewed the documentation as recorded by the Scribe (Bea Contreras) Provider Attestation: All medical record entries made by the Scribe were at my direction and personally dictated by me. I have reviewed the chart and agree that the record accurately reflects my personal performance of the history, physical exam, medical decision making, and the department course for this patient. I have also personally directed, reviewed, and agree with the discharge instructions and disposition.
[2018-03-23 17:07] VITALS: BP 101/54; PULSE 73; RESP 18
--- NOTE | 2018-03-23 17:42 | RAD ---
PROCEDURE: Left Hand Radiographs. HISTORY: pain, FB COMPARISON: None. FINDINGS: BONES: Subacute intra-articular fracture of the 1st metacarpal base transfixed by a pin. Periosteal reaction noted adjacent to the fracture site. JOINTS: Degenerative changes. SOFT TISSUES: Normal. OTHER FINDINGS: None. IMPRESSION: Subacute intra-articular fracture of the base of the 1st metacarpal transfixed by external pin.
[2018-03-23 18:16] VITALS: O2SAT 96
== END 2018-03-23 18:44 | disposition left against medical advice (07) ==
LOC: C.ER 14:38
DX: F19.10 Other psychoactive substance abuse, uncomplicated (principal); E10.649 Type 1 diabetes mellitus with hypoglycemia without coma; Z79.4 Long term (current) use of insulin; E78.00 Pure hypercholesterolemia, unspecified; I48.91 Unspecified atrial fibrillation; I10 Essential (primary) hypertension; I25.10 Atherosclerotic heart disease of native coronary artery without angina pectoris

== ENCOUNTER 2018-06-13 11:37 | Emergency (ER) | payer MEDICARE ==
[2018-06-13 11:37] VITALS: BMI 32.3
--- NOTE | 2018-06-13 12:09 | C.PDOC ---
History Of Present Illness 62yo male, brought to ER by EMS after patient had a witnessed fall. Per EMS patient noted to be post-ictal but they deny any seizure like activity; patient had an accucheck of < 59 and prior to provider evaluation, patient was given orange juice in ER. Patient currently awake and alert and reports a left sided headache. He denies any fever, chills, weakness, numbness and states he took his medications this morning. He also denies any drug or alcohol use. Time Seen by Provider: 06/13/18 11:50 Chief Complaint (Nursing): Altered Mental Status History Per: Patient, EMS Current Symptoms Are (Timing): Gone Usual Baseline: Alert Oriented Exacerbating Factor(s): Diabetic Additional History Per: Patient Associated Symptoms: Headache. denies: Fever, Chills Past Medical History Reviewed: Historical Data, Nursing Documentation, Vital Signs Vital Signs: Last Vital Signs Temp 98.4 F 06/13/18 15:01 Pulse 90 06/13/18 15:01 Resp 18 06/13/18 15:01 BP 137/70 06/13/18 15:01 Pulse Ox 99 06/13/18 15:01 - Medical History PMH: Anxiety, Asthma, Atrial Fibrillation, CAD, Cardia Arrhythmia, Depression, Diabetes (type I), Deep Vein Thrombosis, Gall Bladder Disease, Hepatitis (C), HTN, Hypercholesterolemia, Pancreatitis, Chronic Pain Surgical History: CABG, Cholecystectomy - [facility] Procedures ESOPHAGOGASTRODUODENOSCOPY [EGD] W/CLOSED BIOPSY (01/28/04) INSPECTION OF HEPATOBILIARY DUCT, ENDO (11/25/16) Family History: States: Unknown Family Hx, Diabetes, Hypertension - Social History Hx Tobacco Use: No Hx Alcohol Use: Yes Hx Substance Use: Yes (pt denies on 06/13/18) - Immunization History Hx Tetanus Toxoid Vaccination: No Hx Influenza Vaccination: No Hx Pneumococcal Vaccination: No Review Of Systems Except As Marked, All Systems Reviewed And Found Negative. Constitutional: Negative for: Fever, Chills Gastrointestinal: Negative for: Nausea, Vomiting Neurological: Positive for: Headache. Negative for: Weakness, Numbness Physical Exam - Physical Exam Appears: Non-toxic Skin: Normal Color, Warm, Dry Head: Atraumatic, Normacephalic Eye(s): bilateral: Normal Inspection, PERRL, EOMI Oral Mucosa: Moist Neck: Normal ROM, Supple Chest: Symmetrical Cardiovascular: Rhythm Regular Respiratory: Normal Breath Sounds Gastrointestinal/Abdominal: Normal Exam, Soft Back: Normal Inspection, No CVA Tenderness, No Vertebral Tenderness Extremity: Normal ROM, No Pedal Edema, No Calf Tenderness, No Deformity, No Swelling, Other (skin graft scar noted to anterior left lower extremity, and anterior right forearm) Neurological/Psych: Oriented x3 ED Course And Treatment - Laboratory Results Result Diagrams: 06/13/18 12:23 06/13/18 12:23 ECG: Interpreted By Me, Viewed By Me ECG Rhythm: Sinus Rhythm, 1st Degree HB Interpretation Of ECG: Positive artifact changes. Non-specific t-wave changes Rate From EC O2 Sat by Pulse Oximetry: 96 (RA) Pulse Ox Interpretation: Normal Medical Decision Making Medical Decision Making: Assessment: Altered mental status Plan: * Labs * CT Head w/o contrast * CXR * Benadryl 12.5mg IVP * Reglan 10mg IVP 12:18 Repeat accucheck is 53. IV Dextrose ordered. 12:57 CT Head FINDINGS: HEMORRHAGE: No intracranial hemorrhage. BRAIN: Kapoor-white matter differentiation is preserved. There is no mass, mass effect or abnormal extra-axial fluid collection. There is no territorial infarction. The midline sagittal structures are normal.There are coarse atherosclerotic calcifications in the cavernous carotid arteries. VENTRICLES: There is mild age-related global parenchymal volume loss and proportionate enlargement of the ventricles and cortical sulci. CALVARIUM: Unremarkable. PARANASAL SINUSES: Unremarkable as visualized. No significant inflammatory changes. MASTOID AIR CELLS: Unremarkable as visualized. No inflammatory changes. OTHER FINDINGS: None. IMPRESSION: No acute intracranial abnormality. If there is a persistent focal neurologic deficit and an ongoing clinical concern for acute infarction, an MRI of the brain without intravenous contrast would be a more sensitive modality for evaluation of hyperacute/acute ischemic infarction. Mild age-related global parenchymal volume loss. On re evaluation patient is AAOX3 and requesting to be discharged. Patient doubts seizure, symptoms more consistent with hypoglycemia. Patient reviewed labs and imaging. Patient discharged with instructed follow up to PMD in 1-2 days. Disposition Counseled Patient/Family Regarding: Studies Performed, Diagnosis, Need For Followup - Disposition Referrals: Anthony Quintana MD [Medical Doctor] - Disposition: HOME/ ROUTINE Disposition Time: 14:56 Condition: IMPROVED Additional Instructions: follow up with your doctor within 2 days call to make an appointment continue on medications at home return to ER if symptoms worsens or progress Instructions: Low Blood Sugar in People With Diabetes Forms: [facility] (Turkish), General Discharge Instructions - Clinical Impression Clinical Impression: Hypoglycemia - Scribe Statement The provider has reviewed the documentation as recorded by the Dorie Contreras Provider Attestation: All medical record entries made by the Dorie were at my direction and personally dictated by me. I have reviewed the chart and agree that the record accurately reflects my personal performance of the history, physical exam, medical decision making, and the department course for this patient. I have also personally directed, reviewed, and agree with the discharge instructions and disposition.
[2018-06-13] MEDS ORDERED: DiphenhydrAMINE 50 mg/ml Inj IVP STA (12:13)
[2018-06-13] MEDS ORDERED: Dextrose 50% SYRINGE Inj (50 ml) IV STA (12:18)
[2018-06-13] MEDS ORDERED: Dextrose 50% SYRINGE Inj (50 ml) ONE (12:21)
[2018-06-13 12:30] LABS: BASO # 0.1 K/uL (0.0-0.2); BASO % 0.7 % (0.0-2.0); EOS % 0.2 % (0.0-4.0); HEMOGLOBIN 8.6 g/dL (12.0-18.0); LYMPH # 1.3 K/uL (1.0-4.3); LYMPH % 11.8 % (20.0-40.0); MEAN CORPUSCULAR HEMOGLOBIN 18.8 pg (27.0-31.0); MEAN CORPUSCULAR HGB CONC 29.3 g/dL (33.0-37.0); MEAN PLATELET VOLUME 7.6 fL (7.2-11.7); MONO # 0.5 K/uL (0.0-0.8); MONO % 4.9 % (0.0-10.0); NEUT # 9.2 K/uL (1.8-7.0); NEUT % 82.4 % (50.0-75.0); RBC 4.59 Mil/uL (4.40-5.90); RED CELL DISTRIBUTION WIDTH 20.3 % (11.5-14.5)
[2018-06-13] MEDS ORDERED: DiphenhydrAMINE 50 mg/ml Inj ONE (12:35)
[2018-06-13 12:36] LABS: WHITE BLOOD COUNT 11.2 K/uL (4.8-10.8)
[2018-06-13 12:37] LABS: MEAN CELL VOLUME 64.3 fL (80.0-94.0)
[2018-06-13 12:39] LABS: ALBUMIN 4.6 g/dL (3.5-5.0); BLOOD UREA NITROGEN 16 mg/dL (9-20); CALCIUM 9.1 mg/dl (8.6-10.4); GFR NON-AFRICAN AMERICAN > 60
[2018-06-13 12:41] LABS: ALT/SGPT 82 U/L (21-72); AST/SGOT 89 U/L (17-59)
--- NOTE | 2018-06-13 13:06 | CT ---
Date of service: 06/13/2018 PROCEDURE: CT HEAD WITHOUT CONTRAST. HISTORY: Dizziness COMPARISON: 03/10/2018. TECHNIQUE: Axial computed tomography images were obtained through the head/brain without intravenous contrast. Radiation dose: Total exam DLP = 1054.27 mGy-cm. This CT exam was performed using one or more of the following dose reduction techniques: Automated exposure control, adjustment of the mA and/or kV according to patient size, and/or use of iterative reconstruction technique. FINDINGS: HEMORRHAGE: No intracranial hemorrhage. BRAIN: Kapoor-white matter differentiation is preserved. There is no mass, mass effect or abnormal extra-axial fluid collection. There is no territorial infarction. The midline sagittal structures are normal.There are coarse atherosclerotic calcifications in the cavernous carotid arteries. VENTRICLES: There is mild age-related global parenchymal volume loss and proportionate enlargement of the ventricles and cortical sulci. CALVARIUM: Unremarkable. PARANASAL SINUSES: Unremarkable as visualized. No significant inflammatory changes. MASTOID AIR CELLS: Unremarkable as visualized. No inflammatory changes. OTHER FINDINGS: None. IMPRESSION: No acute intracranial abnormality. If there is a persistent focal neurologic deficit and an ongoing clinical concern for acute infarction, an MRI of the brain without intravenous contrast would be a more sensitive modality for evaluation of hyperacute/acute ischemic infarction. Mild age-related global parenchymal volume loss.
--- NOTE | 2018-06-13 13:09 | RAD ---
Date of service: 06/13/2018 PROCEDURE: CHEST RADIOGRAPH, 1 VIEW HISTORY: SOB COMPARISON: Chest radiograph dated 03/10/2018. FINDINGS: LUNGS: Clear. PLEURA: No pneumothorax or pleural fluid seen. CARDIOVASCULAR: Prior sternotomy with sternal wires and surgical clips redemonstrated. Atherosclerotic aortic calcifications. Cardiomediastinal silhouette stably enlarged. OSSEOUS STRUCTURES: Unchanged. VISUALIZED UPPER ABDOMEN: Normal. OTHER FINDINGS: None. IMPRESSION: No active disease.
[2018-06-13 14:39] LABS: BARBITURATES, UR NEGATIVE (NEGATIVE); BENZODIAZEPINES, UR NEGATIVE (NEGATIVE); PHENCYCLIDINE, UR NEGATIVE (NEGATIVE)
[2018-06-13 15:02] VITALS: BP 137/70; PULSE 90; RESP 18; TEMP 98.4
[2018-06-13 15:03] LABS: OPIATES, UR POSITIVE (NEGATIVE)
[2018-06-13 15:11] VITALS: O2SAT 96
--- NOTE | 2018-06-14 18:24 | CARD ---
APPROVED REPORT Date of service: 06/13/2018 EKG Measurement Heart [id number] <Conclusion> Undetermined rhythm Minimal voltage criteria for LVH, may be normal variant Possible Inferior infarct, age undetermined Prolonged QT Abnormal ECG
== END 2018-06-13 15:15 | disposition home or self-care (01) ==
LOC: C.ER 11:37
DX: E10.649 Type 1 diabetes mellitus with hypoglycemia without coma (principal); I25.10 Atherosclerotic heart disease of native coronary artery without angina pectoris; I10 Essential (primary) hypertension; I48.91 Unspecified atrial fibrillation; E78.00 Pure hypercholesterolemia, unspecified; Z86.718 Personal history of other venous thrombosis and embolism; Z95.1 Presence of aortocoronary bypass graft; F17.210 Nicotine dependence, cigarettes, uncomplicated
CPT/HCPCS: 70450; 71045; 80053; 82948; 83735; 84443; 84484; 85025; 93005; 96374; 96375; 99285; G0480; J1200; J2765

== ENCOUNTER 2018-10-03 20:11 | Emergency (ER) | payer MEDICARE ==
[2018-10-03 20:12] VITALS: BMI 32.3
[2018-10-03 22:20] VITALS: BP 127/77; PULSE 83; RESP 20; TEMP 97.7; O2SAT 100
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
--- NOTE | 2018-10-04 08:20 | RAD ---
Date of service: 10/03/2018 PROCEDURE: Left Ankle Radiographs. HISTORY: ? sprain L ankle, chronic COMPARISON: 01/06/2016 FINDINGS: BONES: In intra medullary adriana with single distal horizontal screw within the distal fibular diaphysis through the epiphysis is present not present on the prior study. No fracture lines noted. There is some slight loss of normal tubulation in the lateral distal fibular diaphyseal metaphyseal junction. JOINTS: Arthrosis medial tibiotalar and midfoot the (portions visualized) noted). SOFT TISSUES: Atherosclerotic vascular calcifications present. Inferior calcaneal spur . Garcia's tendon insetional enesthesophyte. Well corticated dorsal distal talar bordering ossification old osseous avulsion injury inferred. OTHER FINDINGS: Proximal bandaging over the lower extremity present. IMPRESSION: No fracture lines noted. No hardware failure appreciated. Other findings as above.
== END 2018-10-03 23:38 | disposition home or self-care (01) ==
LOC: C.ER 20:11
DX: F19.10 Other psychoactive substance abuse, uncomplicated (principal); G89.29 Other chronic pain; M25.572 Pain in left ankle and joints of left foot

== ENCOUNTER 2018-12-07 13:09 | Inpatient (IN) | payer MEDICARE ==
[2018-12-07 13:09] VITALS: BMI 32.3
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
[2018-12-07 15:56] LABS: BASO % 0.2 % (0.0-2.0); EOS % 0.4 % (0.0-4.0); LYMPH # 1.6 K/uL (1.0-4.3); LYMPH % 14.3 % (20.0-40.0); MEAN CORPUSCULAR HEMOGLOBIN 19.6 pg (27.0-31.0); MEAN CORPUSCULAR HGB CONC 28.5 g/dL (33.0-37.0); MEAN PLATELET VOLUME 8.2 fL (7.2-11.7); MONO # 0.6 K/uL (0.0-0.8); MONO % 5.2 % (0.0-10.0); NEUT # 8.8 K/uL (1.8-7.0); NEUT % 79.9 % (50.0-75.0); NRBC % 0.1 % (0.0-2.0); RBC 5.13 Mil/uL (4.40-5.90); RED CELL DISTRIBUTION WIDTH 19.9 % (11.5-14.5)
[2018-12-07 16:01] LABS: MEAN CELL VOLUME 68.7 fL (80.0-94.0)
[2018-12-07 16:07] LABS: ALB/GLOB RATIO 1.2 (1.0-2.1); ALBUMIN 4.5 g/dL (3.5-5.0); ALT/SGPT 56 U/L (21-72); AST/SGOT 51 U/L (17-59); BLOOD UREA NITROGEN 14 mg/dL (9-20); CALCIUM 9.4 mg/dl (8.6-10.4); GFR NON-AFRICAN AMERICAN > 60
[2018-12-07 16:08] LABS: SQUAMOUS EPITHIAL < 1 /hpf (0-5); URINE BILIRUBIN NEGATIVE (NEGATIVE); URINE BLOOD NEGATIVE (NEGATIVE); URINE CLARITY Hazy (Clear); URINE COLOR Yellow (YELLOW); URINE GLUCOSE (UA) NORMAL (Normal); URINE HYALINE CAST >20 /lpf (0-2); URINE LEUKOCYTE ESTERASE NEG Leu/uL (Negative); URINE PROTEIN NEGATIVE (NEGATIVE); URINE UROBILINOGEN NORMAL mg/dL (0.2-1.0)
[2018-12-07 16:16] LABS: BENZODIAZEPINES, UR NEGATIVE (NEGATIVE)
[2018-12-07 16:20] LABS: BARBITURATES, UR NEGATIVE (NEGATIVE); PHENCYCLIDINE, UR NEGATIVE (NEGATIVE)
[2018-12-07 16:44] LABS: OPIATES, UR POSITIVE (NEGATIVE)
[2018-12-07] MEDS ORDERED: (Novolog Mix 70/30) Insulin Aspart/Insulin Aspar 100 units/ml SC STA (17:33)
--- NOTE | 2018-12-07 18:12 | RAD ---
PROCEDURE: Radiographs of the left elbow. HISTORY: pain COMPARISON: No prior. FINDINGS: BONES: No acute displaced fracture. JOINTS: No dislocation. SOFT TISSUES: Evidence of small subcutaneous emphysema within the soft tissues adjacent to the olecranon; correlate clinically. Vascular calcifications. No evidence of radiopaque foreign body. JOINT EFFUSION: No significant joint effusion. OTHER FINDINGS: None IMPRESSION: Evidence of small subcutaneous emphysema within the soft tissues adjacent to the olecranon; correlate clinically for possibility of infection or traumatic etiologies. No acute displaced fracture or dislocation identified.
[2018-12-07] MEDS ORDERED: (Novolog Mix 70/30) Insulin Aspart/Insulin Aspar 100 units/ml SC ONE (18:31)
--- NOTE | 2018-12-07 18:41 | PCM.BM ---
<Manny Rosa - Last Filed: 12/07/18 18:38> Treatment Plan Problems - Problems identified on initial assessmt Denial Date Initiated: 12/07/18 Time Initiated: 18:38 Assessment reference: NA Status: Active Defensive Coping Date Initiated: 12/07/18 Time Initiated: 18:39 Assessment reference: NA Status: Active Low Motivation to Change Date Initiated: 12/07/18 Time Initiated: 18:39 Assessment reference: NA Status: Active Treatment assets and liabiliti Patient Assests: cooperative, ADL independent, cognitively intact Patient Liabilities: poor support system, substance abuse, medical problems - Milieu Protocol Maintain good personal hygiene: daily Encourage regular showers, daily Remind patient to perform daily oral care, daily Assist patient to perform ADL's Maintain personal safety: every shift Educate patient to report safety concerns to staff, every shift Monitor environment for contraband/sharps Medication safety: Monitor for expected outcome, potential side effects: every shift, Assess barriers to learning: every shift, Assess readiness for medication education: every shift <David Oerllana - Last Filed: 12/08/18 15:34> - Diagnosis (1) Opioid use disorder, moderate, dependence Status: Acute Interventions: 12/08/18 15:35 * Assess/adjust medications daily and /or as needed * See patient on an individual basis 7x/week to assess symptoms of depression * Monitor for side effects & effectiveness of medications <Imani Bazzi - Last Filed: 12/09/18 10:21> Family Contact Family involvement: Famliy/SO not involved - Goals for Treatment Patient goals for treatment: COMPLETE DETOX AND TRANSITION TO OUTPATIENT TREATMENT PROGRAM. Discharge/Continuing Care - Education Needs Education Needs: Patient Medication, Patient Diagnosis/Disease Process, Patient Coping Skills, Patient Anger Management skills, Patient Placement options, Patient Community resources - Discharge Discharge Criteria: No longer exhibiting s/s of withdrawal, Reduction of target symptoms Discharge to:: Home, With Family - Treatment Team Participation Patient/Family/SO Statement: 12/09/18 10:21 "I DON'T KNOW, MAYBE OUTPATIENT..." Discussed with Family/SO: No Was Patient/Family/SO present at Treatment Team Meeting: Yes
[2018-12-07] MEDS ORDERED: Buprenorphine Hydrochloride 2 mg SL ONE ×2 (19:51→21:00)
[2018-12-07] MEDS: (Novolin R) Insulin Human Regular 100 units/ml vial SC SCH (21:14)
[2018-12-07] MEDS: Alum-Mag Hydrox-Simethicone Susp (30 mL) PO PRN (21:24)
[2018-12-08] MEDS: (Novolin R) Insulin Human Regular 100 units/ml vial SC SCH ×4 (08:15→21:01)
[2018-12-08] MEDS: Buprenorphine Hydrochloride 2 mg SL SCH (10:37)
[2018-12-08] MEDS ORDERED: Aluminum Hydroxide/Magnesium Hydroxide Susp (30 mL) PO PRN (11:07)
[2018-12-08] MEDS: Pantoprazole 40 mg EC Tab PO SCH (11:44)
[2018-12-08] MEDS: Alum-Mag Hydrox-Simethicone Susp (30 mL) PO PRN (12:29)
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
[2018-12-08] MEDS: (Novolin 70/30) NPH/Regular 70/30 Units/ml 10 ml vial SC SCH (17:49)
--- NOTE | 2018-12-09 08:47 | PCM.RRT ---
CARE ANALYST Nurses Assessment - Situation Date: 12/09/18 Time CARE ANALYST was called: 08:45 CARE ANALYST Responder Arrival Time:: 08:46 Room Number: 757B CARE ANALYST Reason for Call: Change in Mental Status CARE ANALYST Called By: RN - IV IV Inserted during CARE ANALYST?: No - Respiratory CARE ANALYST Delivery Method: Room Air - Diagnostic Test Ordered EKG: Yes CT Scan: Yes - Stat Labs Ordered CARE ANALYST Stat Labs Ordered: CBC, BMP, PT/PTT CPR started during CARE ANALYST?: No - [place] Coma Scale Coma Scale Eye Opening: Spontaneous - Time CARE ANALYST Ended Time CARE ANALYST Ended: 08:55 I.Reason for CARE ANALYST - A) Acute Change in Patient: (Select all that apply): Acute change in mental status Subjective: Rapid Response called in Detox on a 63 year old male with a PMHx of Hypertension, Diabetes mellitus, Hypercholesterolemia, Coronary artery disease Peripheral neuropathy, and pancreatitis for unresponsiveness. Patient admitted for detoxification from opiods. Upon entering the room, patient was awake, alert, and oriented. Vitals signs were stable. Patient was screaming in pain with complaints of leg pain. He also stated that he has been having black stool. Patient eventually calmed down without and medical intervention. Vitals Signs were with BP at 162/87, and Temp 97.9. - Neurological Status (Select all that apply): Alert, Responsive, Oriented, Verbal, Follows Commands - Respiratory Oxygen Delivery Method: Room Air - Constitutional Appears: Non-toxic - Head Head Exam: ATRAUMATIC, NORMAL INSPECTION, NORMOCEPHALIC - Eyes Eye Exam: Normal appearance - Cardiovascular Exam Cardiovascular Exam: +S1, +S2 - GI/Abdominal Exam GI & Abdominal Exam: absent: Distended - Neurological Exam Neurological Exam: Alert, Awake, Oriented x3 - Extremities Exam Extremities Exam: Tenderness (Lower Ext. ) Plan - Assessment of Findings&Treatment Plan Change in Mental Status. I suspect his pain is 2/2 to opiod withdrawal Unreponsiveness DDx: factitious disorder, arrhythmia, seizure -CBC, CMP, PT/PTT, Mg, Phos -Head CT w/o Contrast -EKG -Detox staff asked to notify medical consult
[2018-12-09] MEDS: (Novolin R) Insulin Human Regular 100 units/ml vial SC SCH ×4 (08:52→21:33)
[2018-12-09] MEDS: Pantoprazole 40 mg EC Tab PO SCH (09:46)
[2018-12-09] MEDS: (Novolin 70/30) NPH/Regular 70/30 Units/ml 10 ml vial SC SCH ×2 (09:46→17:10)
[2018-12-09] MEDS: Buprenorphine Hydrochloride 2 mg SL SCH (09:51)
--- NOTE | 2018-12-09 10:32 | CT ---
Date of service: 12/09/2018 PROCEDURE: CT HEAD WITHOUT CONTRAST. HISTORY: AMS COMPARISON: None available. TECHNIQUE: Axial computed tomography images were obtained through the head/brain without intravenous contrast. Radiation dose: Total exam DLP = 1267.94 mGy-cm. This CT exam was performed using one or more of the following dose reduction techniques: Automated exposure control, adjustment of the mA and/or kV according to patient size, and/or use of iterative reconstruction technique. FINDINGS: HEMORRHAGE: No intracranial hemorrhage. BRAIN: No mass effect or edema. Minimal diffuse atrophy. Minimal periventricular white matter lucency consistent with chronic microvascular ischemic change. No evidence of acute infarct. VENTRICLES: Unremarkable. No hydrocephalus. CALVARIUM: Unremarkable. PARANASAL SINUSES: Unremarkable as visualized. No significant inflammatory changes. MASTOID AIR CELLS: Unremarkable as visualized. No inflammatory changes. OTHER FINDINGS: None. IMPRESSION: No intracranial mass, hemorrhage or evidence of acute infarct. Minimal age related atrophy and chronic white matter ischemic change. No interval change from 06/13/2018
[2018-12-09 13:45] LABS: BASO % 0.4 % (0.0-2.0); EOS # 0.1 K/uL (0.0-0.7); EOS % 0.9 % (0.0-4.0); HEMOGLOBIN 9.9 g/dL (12.0-18.0); LYMPH # 1.7 K/uL (1.0-4.3); LYMPH % 15.7 % (20.0-40.0); MEAN CELL VOLUME 67.4 fL (80.0-94.0); MEAN CORPUSCULAR HGB CONC 29.7 g/dL (33.0-37.0); MEAN PLATELET VOLUME 8.1 fL (7.2-11.7); MONO # 0.5 K/uL (0.0-0.8); MONO % 4.8 % (0.0-10.0); NEUT # 8.5 K/uL (1.8-7.0); NEUT % 78.2 % (50.0-75.0); RBC 4.96 Mil/uL (4.40-5.90); RED CELL DISTRIBUTION WIDTH 19.7 % (11.5-14.5); WHITE BLOOD COUNT 10.9 K/uL (4.8-10.8)
--- NOTE | 2018-12-09 13:46 | CP.PCM.PN ---
Subjective - Date & Time of Evaluation Date of Evaluation: 12/09/18 Time of Evaluation: 13:44 - Subjective Subjective: THIS MORNING PATIENT HAD A RAPID RESPONSE. aPPARENTLY PATIENT WAS SCREAMING WITH PAIN. wHEN THE PATIENT WAS EXAMINED BY THE TREATING RAPID RESPONSE TEAM, THERE WAS NO PAIN AND PATIENT APPARENTLY WAS NORMAL WITH NORMAL VITAL SIGNS. rO UTINE BLOOD TESTS WERE DONE WHICH APPARENTLY IS NORMAL sTILL WAITING FOR STOOL OCCULT HEMOGLOBIN IS STABLE aDMITTING gi EVALUATION tRANSFER TO MEDICAL FLOOR THE PATIENT IS TO BE DISCHARGED FROM THE DRUG REHAB FLOOR. Objective - Vital Signs/Intake and Output Vital Signs (last 24 hours): Temp Pulse Resp BP Pulse Ox 97.9 F 69 18 162/87 H 99 12/09/18 10:00 12/09/18 10:00 12/09/18 10:00 12/09/18 10:00 12/09/18 10:00 - Medications Medications: Current Medications Acetaminophen (Tylenol 325mg Tab) 650 mg PO Q4H PRN PRN Reason: Fever greater than 101 F Last Admin: 12/08/18 12:13 Dose: 650 mg Al Hydrox/Mg Hydrox/Simethicone (Maalox Plus 30 Ml) 30 ml PO Q8 PRN PRN Reason: Indigestion / Heartburn Last Admin: 12/08/18 12:29 Dose: 30 ml Al Hydrox/Mg Hydrox/Simethicone (Maalox 30 Ml) 30 ml PO TID PRN PRN Reason: Indigestion / Heartburn Buprenorphine HCl (Subutex) 4 mg SL DAILY [facility]; Taper Stop: 12/11/18 09:59 Last Admin: 12/09/18 09:51 Dose: 4 mg Clonidine HCl (Catapres) 0.1 mg PO Q4 PRN PRN Reason: COWS Score More or Equal to 5 Last Admin: 12/08/18 15:50 Dose: 0.1 mg Gabapentin (Neurontin) 100 mg PO TID [facility] Last Admin: 12/09/18 13:18 Dose: 100 mg Hydroxyzine HCl (Atarax) 25 mg PO Q6 PRN PRN Reason: Anxiety Last Admin: 12/09/18 12:58 Dose: 25 mg Insulin Human Isoph/Insulin Regular (Novolin 70/30 (70/30 Units/Ml) 10 Ml) 60 units SC BIDPC [facility] Last Admin: 12/09/18 09:46 Dose: 60 units Insulin Human Regular (Novolin R) 0 unit SC [facility]; Protocol Last Admin: 12/09/18 12:12 Dose: 4 units Lisinopril (Zestril) 10 mg PO DAILY [facility] Last Admin: 12/09/18 09:46 Dose: 10 mg Loperamide HCl (Imodium) 2 mg PO Q8 PRN PRN Reason: Diarrhea Metformin HCl (Glucophage) 1,000 mg PO BID [facility] Last Admin: 12/09/18 09:46 Dose: 1,000 mg Ondansetron HCl (Zofran Tab) 4 mg PO Q8 PRN PRN Reason: Nausea/Vomiting Pantoprazole Sodium (Protonix Ec Tab) 40 mg PO DAILY [facility] Last Admin: 12/09/18 09:46 Dose: 40 mg Rivaroxaban (Xarelto) 20 mg PO DAILY [facility] Last Admin: 12/09/18 09:42 Dose: 20 mg Sitagliptin Phosphate (Januvia) 50 mg PO DAILY [facility] Last Admin: 12/09/18 12:58 Dose: 50 mg Trazodone HCl (Desyrel) 50 mg PO HS PRN PRN Reason: Insomnia Last Admin: 12/08/18 21:02 Dose: 50 mg - Labs Labs: 12/07/18 15:47 12/07/18 15:47
[2018-12-09 13:55] LABS: ALB/GLOB RATIO 1.2 (1.0-2.1); ALT/SGPT 49 U/L (21-72); AST/SGOT 32 U/L (17-59); BLOOD UREA NITROGEN 16 mg/dL (9-20); CALCIUM 9.3 mg/dl (8.6-10.4); GFR NON-AFRICAN AMERICAN > 60; PROTHROMBIN TIME 21.4 SECONDS (9.7-12.2)
--- NOTE | 2018-12-09 23:49 | PCM.PYCHPN ---
Psychiatric Progress Note - Psychiatric Progress Note Patient Chief Complaint: I need help for my substance use. Problems Identified/Issues Discussed: Patient seen, chart reviewed, case discussed with the staff. Issues related to illness and treatment were discussed with the patient and sta ff. Reported compliance with treatment with no adverse effect. Tolerating treatment very well. Patient reported not feeling better, still has withdrawal symptoms including body aches, sweating, nausea, decreased sleep and headache. Earlier this morning patient fell down, rapid response was called. Patient was evaluated and found no injury. After that patient was found walking normally. Mood reported as anxious. Affect appropriate. Aftercare discussed with the patient. Patient denied any delusions, auditory or visual hallucinations, no suicidal ideations or homicidal ideations at the time of the evaluation. Medical Problems: Hypertension Diabetes mellitus Coronary artery disease Peripheral neuropathy Diagnostic Results: Reviewed DSM 5 Symptoms Update: Some improvement with treatment Medication Change: No Medical Record Reviewed: Yes Consults ordered or reviewed: Ordered Mental Status Examination - Cognitive Function Orientation: Person, Place, Situation, Time Memory: Intact Attention: WNL Concentration: WNL Association: WN Fund of Knowledge: [facility] Decription of patient's judgement and insights: Fair - Mood Mood: Anxious - Affect Affect: Other (Appropriate) - Speech Speech: Appropriate - Formal Thought Process Formal Thought Process: No Impairment Psychotic Thoughts and Behaviors: None - Suicidal Ideation Suicidal Ideation: No - Homicidal Ideation Homicidal Ideation: No Goal/Treatment Plan - Goal/Treatment Plan Need for Continued Stay: Remain at risks for inpatient hospitalization, Discharge may exacerbated symptoms, Severe functional impairment Progress Toward Problem(s) and Goals/Treatment Plan: Patient education. Supportive therapy. CBT for relapse prevention. IA for abstinence. Continue treatment as before. Estimated Date of D/C: 12/11/18 - Smoking Cessation Smoking Cessation Initiated: No
[2018-12-10] MEDS: (Novolin R) Insulin Human Regular 100 units/ml vial SC SCH ×4 (08:19→22:09)
[2018-12-10] MEDS: (Novolin 70/30) NPH/Regular 70/30 Units/ml 10 ml vial SC SCH ×2 (08:23→16:59)
[2018-12-10] MEDS: Pantoprazole 40 mg EC Tab PO SCH (09:07)
[2018-12-10] MEDS: Buprenorphine Hydrochloride 2 mg SL SCH (09:08)
--- NOTE | 2018-12-10 12:38 | CP.PCM.PN ---
Subjective - Date & Time of Evaluation Date of Evaluation: 12/10/18 Time of Evaluation: 12:37 - Subjective Subjective: STOOL OCCULT IS NEG GI NO SHOW , WILL CALL DR. LIU VS STABLE P/E SAME SUGARS BETTER Objective - Vital Signs/Intake and Output Vital Signs (last 24 hours): Temp Pulse Resp BP Pulse Ox 98.0 F 83 20 146/78 100 12/10/18 09:14 12/10/18 09:14 12/10/18 09:14 12/10/18 09:14 12/10/18 09:14 - Medications Medications: Current Medications Acetaminophen (Tylenol 325mg Tab) 650 mg PO Q4H PRN PRN Reason: Fever greater than 101 F Last Admin: 12/10/18 10:24 Dose: 650 mg Al Hydrox/Mg Hydrox/Simethicone (Maalox Plus 30 Ml) 30 ml PO Q8 PRN PRN Reason: Indigestion / Heartburn Last Admin: 12/08/18 12:29 Dose: 30 ml Al Hydrox/Mg Hydrox/Simethicone (Maalox 30 Ml) 30 ml PO TID PRN PRN Reason: Indigestion / Heartburn Last Admin: 12/09/18 23:05 Dose: 30 ml Buprenorphine HCl (Subutex) 2 mg SL DAILY [facility]; Taper Stop: 12/11/18 09:59 Last Admin: 12/10/18 09:08 Dose: 2 mg Clonidine HCl (Catapres) 0.1 mg PO Q4 PRN PRN Reason: COWS Score More or Equal to 5 Last Admin: 12/09/18 21:38 Dose: 0.1 mg Gabapentin (Neurontin) 100 mg PO TID [facility] Last Admin: 12/10/18 09:08 Dose: 100 mg Hydroxyzine HCl (Atarax) 25 mg PO Q6 PRN PRN Reason: Anxiety Last Admin: 12/09/18 21:38 Dose: 25 mg Insulin Human Isoph/Insulin Regular (Novolin 70/30 (70/30 Units/Ml) 10 Ml) 60 units SC BIDPC [facility] Last Admin: 12/10/18 08:23 Dose: 60 units Insulin Human Regular (Novolin R) 0 unit SC ACHS [facility]; Protocol Last Admin: 12/10/18 12:08 Dose: 6 units Lisinopril (Zestril) 10 mg PO DAILY [facility] Last Admin: 12/10/18 09:08 Dose: 10 mg Loperamide HCl (Imodium) 2 mg PO Q8 PRN PRN Reason: Diarrhea Metformin HCl (Glucophage) 1,000 mg PO BID [facility] Last Admin: 12/10/18 10:24 Dose: 1,000 mg Ondansetron HCl (Zofran Tab) 4 mg PO Q8 PRN PRN Reason: Nausea/Vomiting Pantoprazole Sodium (Protonix Ec Tab) 40 mg PO DAILY [facility] Last Admin: 12/10/18 09:07 Dose: 40 mg Rivaroxaban (Xarelto) 20 mg PO DAILY [facility] Last Admin: 12/10/18 09:08 Dose: 20 mg Sitagliptin Phosphate (Januvia) 50 mg PO DAILY [facility] Last Admin: 12/10/18 10:24 Dose: 50 mg Trazodone HCl (Desyrel) 50 mg PO HS PRN PRN Reason: Insomnia Last Admin: 12/09/18 21:38 Dose: 50 mg - Labs Labs: 12/09/18 13:36 12/09/18 13:36 PT 21.4 SECONDS (9.7-12.2) H 12/09/18 13:36 INR 2.0 12/09/18 13:36 APTT 33 SECONDS (21-34) 12/09/18 13:36
--- NOTE | 2018-12-10 13:07 | PCM.PYCHPN ---
Psychiatric Progress Note - Psychiatric Progress Note Patient Chief Complaint: Patient was seen today, he has finished his Subutex taper, denies any withdrawal symptoms at this time. Patient is cleared to be transferred to the medical floor. Medication Change: No Medical Record Reviewed: Yes Mental Status Examination - Cognitive Function Orientation: Person, Place, Situation, Time - Mood Mood: Anxious - Affect Affect: Other (Appropriate) - Formal Thought Process Formal Thought Process: No Impairment
--- NOTE | 2018-12-10 15:55 | CP.PCM.CON ---
History of Present Illness - History of Present Illness History of Present Illness: PGY 5 Initial GI Consult Gumaro Bui is a 63 M w/ hx of type 2 diabetes, coronary artery disease, atrial fibrillation, hypertension, hepatitis C, history of previous GI bleeds, pancreatitis who presented to [facility] for detox. GI was consulted for anemia and possible GI Bleed. Pt presented in 2017 for abd pain and found to be anemic at that time as well. Pt had an EGD and COlonoscopy: which revealed gastritis and poor prep w/ ext and int hemorrhoids. Pt reports that he was also recently at [facility] [place] [facility] and was told he was anemic but discharged home. Pt hgb ~9.8 and MCV <80. Pt reports intermittent melonic stools. Denies any BRBPR, hematemesis. [facility] PMH: See above; DVT? PSHx: CAGB Family Hx: denies any family hx of GI bleed Social hx: occasional ETOH, Opiod/heroine use ROS: 12 point ROS conducted, neg other than above Past Patient History - Infectious Disease Hx of Infectious Diseases: None - Past Medical History & Family History Past Medical History?: Yes - Past Social History Smoking Status: Never Smoked - CARDIAC Hx Atrial Fibrillation: Yes Hx Cardia Arrhythmia: Yes Hx Hypercholesterolemia: Yes Hx Hypertension: Yes - PULMONARY Hx Asthma: Yes - NEUROLOGICAL Hx Seizures: No - ENDOCRINE/METABOLIC Hx Endocrine Disorders: Yes Hx Diabetes Mellitus Type 2: Yes - HEMATOLOGICAL/ONCOLOGICAL Hx Human Immunodeficiency Virus (HIV): No - INTEGUMENTARY Hx Dermatological Problems: No - MUSCULOSKELETAL/RHEUMATOLOGICAL Hx Musculoskeletal Disorders: Yes Hx Falls: Yes (Pt states, "i fell last summer when i was doing heroin") Hx Unsteady Gait: Yes (peripheral neuropathy) Other/Comment: Cervical fracture. Right forearm fracture with fixation - GASTROINTESTINAL Hx Gall Bladder Disease: Yes Hx Pancreatitis: Yes - GENITOURINARY/GYNECOLOGICAL Hx Sexually Transmitted Disorders: No - PSYCHIATRIC Hx Substance Use: Yes - SURGICAL HISTORY Hx Cholecystectomy: Yes Hx Coronary Artery Bypass Graft: Yes - ANESTHESIA Hx Anesthesia: Yes Hx Anesthesia Reactions: No Hx Malignant Hyperthermia: No Meds Allergies/Adverse Reactions: Allergies Allergy/AdvReac Type Severity Reaction Status Date / Time Penicillins Allergy Mild RASH Verified 12/07/18 13:29 - Medications Medications: Current Medications Acetaminophen (Tylenol 325mg Tab) 650 mg PO Q4H PRN PRN Reason: Fever greater than 101 F Last Admin: 12/10/18 10:24 Dose: 650 mg Al Hydrox/Mg Hydrox/Simethicone (Maalox Plus 30 Ml) 30 ml PO Q8 PRN PRN Reason: Indigestion / Heartburn Last Admin: 12/08/18 12:29 Dose: 30 ml Al Hydrox/Mg Hydrox/Simethicone (Maalox 30 Ml) 30 ml PO TID PRN PRN Reason: Indigestion / Heartburn Last Admin: 12/09/18 23:05 Dose: 30 ml Buprenorphine HCl (Subutex) 2 mg SL DAILY [facility]; Taper Stop: 12/11/18 09:59 Last Admin: 12/10/18 09:08 Dose: 2 mg Clonidine HCl (Catapres) 0.1 mg PO Q4 PRN PRN Reason: COWS Score More or Equal to 5 Last Admin: 12/09/18 21:38 Dose: 0.1 mg Gabapentin (Neurontin) 100 mg PO TID [facility] Last Admin: 12/10/18 14:14 Dose: 100 mg Hydroxyzine HCl (Atarax) 25 mg PO Q6 PRN PRN Reason: Anxiety Last Admin: 12/09/18 21:38 Dose: 25 mg Insulin Human Isoph/Insulin Regular (Novolin 70/30 (70/30 Units/Ml) 10 Ml) [facility] Last Admin: 12/10/18 08:23 Dose: 60 units Insulin Human Regular (Novolin R) 0 unit SC [facility]; Protocol Last Admin: 12/10/18 12:08 Dose: 6 units Lisinopril (Zestril) 10 mg PO DAILY [facility] Last Admin: 12/10/18 09:08 Dose: 10 mg Loperamide HCl (Imodium) 2 mg PO Q8 PRN PRN Reason: Diarrhea Metformin HCl (Glucophage) 1,000 mg PO BID [facility] Last Admin: 12/10/18 10:24 Dose: 1,000 mg Ondansetron HCl (Zofran Tab) 4 mg PO Q8 PRN PRN Reason: Nausea/Vomiting Pantoprazole Sodium (Protonix Ec Tab) 40 mg PO DAILY [facility] Last Admin: 12/10/18 09:07 Dose: 40 mg Rivaroxaban (Xarelto) 20 mg PO DAILY [facility] Last Admin: 12/10/18 09:08 Dose: 20 mg Sitagliptin Phosphate (Januvia) 50 mg PO DAILY [facility] Last Admin: 12/10/18 10:24 Dose: 50 mg Trazodone HCl (Desyrel) 50 mg PO HS PRN PRN Reason: Insomnia Last Admin: 12/09/18 21:38 Dose: 50 mg Physical Exam - Constitutional Appears: No Acute Distress - Head Exam Head Exam: ATRAUMATIC, NORMOCEPHALIC - Eye Exam Eye Exam: Normal appearance Pupil Exam: NORMAL ACCOMODATION - ENT Exam ENT Exam: Mucous Membranes Moist, Normal Exam - Neck Exam Neck exam: Positive for: Normal Inspection - Respiratory Exam Respiratory Exam: Clear to Auscultation Bilateral, NORMAL BREATHING PATTERN. absent: Rales, Rhonchi, Wheezes - Cardiovascular Exam Cardiovascular Exam: REGULAR RHYTHM, +S1, +S2 - GI/Abdominal Exam GI & Abdominal Exam: Normal Bowel Sounds, Soft. absent: Distended, Firm, Hernia, Organomegaly, Rebound, Rigid - Rectal Exam Rectal Exam: NORMAL INSPECTION. absent: Black Stool, Hemorrhoids, Fecal Impaction - Extremities Exam Extremities exam: Negative for: joint swelling, pedal edema - Neurological Exam Neurological exam: Alert, Oriented x3 - Psychiatric Exam Psychiatric exam: Normal Affect, Normal Mood - Skin Skin Exam: Dry, Intact, Normal Color, Warm Results - Vital Signs Recent Vital Signs: Last Vital Signs Temp 98.4 F 12/10/18 13:00 Pulse 82 12/10/18 13:00 Resp 18 12/10/18 13:00 BP 124/67 12/10/18 13:00 Pulse Ox 99 12/10/18 13:00 - Labs Result Diagrams: 12/09/18 13:36 12/09/18 13:36 Labs: Laboratory Results - last 24 hr 12/09/18 12/09/18 12/09/18 11:47 15:53 17:18 POC Glucose (mg/dL) 344 H 327 H Stool Occult Blood Negative 12/09/18 21:32 POC Glucose (mg/dL) 201 H Stool Occult Blood Assessment & Plan - Assessment and Plan (Free Text) Assessment: Gumaro Bui is a 63M w/ hx of afib on xarelto, opiod abuse, depression, anxiety, anemia who presnted for detox. GI consulted for anemia and GI Bleed Microcytic anemia Melena? Hx of ext & int hemorrhoids hx of PUD A-fib on xarelto Plan: -spoke to Dr. Collins -plan for EGD on Wednesday -NPO after midnight wednesday night -hold xaralto -repeat INR in the AM -CEA and AFP -abd U/S -daily CBC, CMP, and INR -anticipate transfer of pt to medical floor as per RN -start on protonix 40mg Daily -will need type and screen -will plan for colonoscopy based upon results of EGD D/W Dr. Collins
[2018-12-11] MEDS ORDERED: Phytonadione 10 mg/ml Inj (Adult) SC STA (07:38)
[2018-12-11] MEDS: (Novolin R) Insulin Human Regular 100 units/ml vial SC SCH ×4 (08:09→21:57)
[2018-12-11] MEDS ORDERED: Bisacodyl 5mg EC Tab PO ONE (08:36)
[2018-12-11] MEDS ORDERED: Magnesium Citrate Oral SOL (300 ml) PO ONE (08:37)
[2018-12-11 08:39] LABS: BASO # 0.1 K/uL (0.0-0.2); BASO % 0.8 % (0.0-2.0); EOS # 0.2 K/uL (0.0-0.7); EOS % 2.4 % (0.0-4.0); HEMOGLOBIN 9.3 g/dL (12.0-18.0); LYMPH # 1.5 K/uL (1.0-4.3); MEAN CELL VOLUME 67.2 fL (80.0-94.0); MEAN CORPUSCULAR HEMOGLOBIN 20.7 pg (27.0-31.0); MEAN CORPUSCULAR HGB CONC 30.8 g/dL (33.0-37.0); MEAN PLATELET VOLUME 8.7 fL (7.2-11.7); MONO # 0.5 K/uL (0.0-0.8); MONO % 5.4 % (0.0-10.0); NEUT # 6.5 K/uL (1.8-7.0); NEUT % 74.4 % (50.0-75.0); RBC 4.51 Mil/uL (4.40-5.90); RED CELL DISTRIBUTION WIDTH 19.5 % (11.5-14.5); WHITE BLOOD COUNT 8.8 K/uL (4.8-10.8)
[2018-12-11 08:42] LABS: INR 1.2; PROTHROMBIN TIME 12.6 SECONDS (9.7-12.2)
[2018-12-11 09:09] LABS: ALB/GLOB RATIO 1.1 (1.0-2.1); ALBUMIN 3.5 g/dL (3.5-5.0); ALT/SGPT 44 U/L (21-72); AST/SGOT 40 U/L (17-59); BLOOD UREA NITROGEN 15 mg/dL (9-20); CALCIUM 9.2 mg/dl (8.6-10.4); GFR NON-AFRICAN AMERICAN > 60
[2018-12-11] MEDS: (Novolin 70/30) NPH/Regular 70/30 Units/ml 10 ml vial SC SCH ×2 (09:21→16:59)
[2018-12-11] MEDS: Pantoprazole 40 mg EC Tab PO SCH (09:23)
--- NOTE | 2018-12-11 09:29 | PN ---
DATE: 12/11/2018 LOCATION 563, bed A. SUBJECTIVE: This 63-year-old male, seen and examined initially for GI consultation on 12/10/2018, reexamined again today without significant clinical changes but with a complaint of lower extremities pain bilaterally with intermittent period of abdominal pain, reported melena for the last several days even before admission. No reported chest pain, palpitation, significant shortness of breath, or reported chills or fever. The entire chart is reviewed including but not limited to the most recent lab and radiology study results and today's blood glucose level reported to be 297. The patient still has leukocytosis with low hemoglobin and hematocrit as well as low indices highly suggestive of hypochromic microcytic anemia with elevated PT to 21.4, low creatinine, but normal liver function test and normal BUN so far. PHYSICAL EXAMINATION: GENERAL: A 63-year-old male, awake, alert, complaining of lower extremities pain. VITAL SIGNS: Afebrile with pulse of 92, respiratory rate 20 to 22, blood pressure of 146/74. HEENT: Pale dry oral mucous membrane. Nonicteric sclerae. LUNGS: Few scattered crepitation. Decreased air entry at bases. HEART: Positive S1 and S2. ABDOMEN: Soft with mild generalized tenderness. No mass or organomegaly. No rebound tenderness or guarding. EXTREMITIES: Without significant edema, clubbing or cyanosis. IMPRESSION: 1. Reported melena with known history of peptic ulcer disease, to rule out recurrent upper versus lower gastrointestinal blood loss. 2. Hypochromic microcytic anemia that could be secondary to above versus chronic disease, the possibility of arteriovenous malformation was raised. 3. It has to be kept in mind that the patient previously refused the colonoscopy several weeks ago and even as outpatient and while he was hospitalized in another medical institution. 4. Known history of atrial fibrillation, on Xarelto. 5. Psychiatric disorder, by history. 6. Known history of hypertension, hepatitis C viral infection with recurrent episode of pancreatitis before. 7. On record, the patient's last colonoscopy was 3 years ago with very poor preparation, was not adequate to make final diagnosis. The patient refused repeat colonoscopy at that time. SUGGESTIONS: 1. Continue current management. 2. Cancer markers including alpha-fetoprotein. 3. Ammonia level also to be ordered. 4. Endoscopic evaluation of upper GI tract. 5. Further recommendation to follow. Dylon Patricia MD [facility] # [id number]
[2018-12-11] MEDS: Magnesium Citrate Oral SOL (300 ml) PO SCH ×2 (11:35→15:37)
--- NOTE | 2018-12-11 12:45 | CP.PCM.PN ---
Subjective - Date & Time of Evaluation Date of Evaluation: 12/11/18 Time of Evaluation: 12:45 - Subjective Subjective: STOOL OCCULT IS NEG GI NO SHOW , WILL CALL DR. LIU VS STABLE P/E SAME SUGARS BETTER BACK AND LEG PAINS ON TRAMADOL EGD IN AM Objective - Vital Signs/Intake and Output Vital Signs (last 24 hours): Temp Pulse Resp BP Pulse Ox 97.9 F 80 18 153/80 H 96 12/11/18 07:05 12/11/18 07:05 12/11/18 07:05 12/11/18 07:05 12/11/18 07:05 - Medications Medications: Current Medications Acetaminophen (Tylenol 325mg Tab) 650 mg PO Q4H PRN PRN Reason: Fever greater than 101 F Al Hydrox/Mg Hydrox/Simethicone (Maalox Plus 30 Ml) 30 ml PO Q8 PRN PRN Reason: Indigestion / Heartburn Last Admin: 12/08/18 12:29 Dose: 30 ml Al Hydrox/Mg Hydrox/Simethicone (Maalox 30 Ml) 30 ml PO TID PRN PRN Reason: Indigestion / Heartburn Last Admin: 12/09/18 23:05 Dose: 30 ml Clonidine HCl (Catapres) 0.1 mg PO Q4 PRN PRN Reason: COWS Score More or Equal to 5 Last Admin: 12/09/18 21:38 Dose: 0.1 mg Gabapentin (Neurontin) 100 mg PO TID [facility] Last Admin: 12/11/18 09:23 Dose: 100 mg Hydroxyzine HCl (Atarax) 25 mg PO Q6 PRN PRN Reason: Anxiety Last Admin: 12/09/18 21:38 Dose: 25 mg Insulin Human Isoph/Insulin Regular (Novolin 70/30 (70/30 Units/Ml) 10 Ml) [facility] Last Admin: 12/11/18 09:21 Dose: 60 units Insulin Human Regular (Novolin R) 0 unit SC ACHS [facility]; Protocol Last Admin: 12/11/18 08:09 Dose: 3 units Lisinopril (Zestril) 10 mg PO DAILY [facility] Last Admin: 12/11/18 09:22 Dose: 10 mg Loperamide HCl (Imodium) 2 mg PO Q8 PRN PRN Reason: Diarrhea Magnesium Citrate (Citrate Of Mag) 60 ml PO Q5H [facility] Stop: 12/11/18 16:01 Last Admin: 12/11/18 11:35 Dose: 60 ml Metformin HCl (Glucophage) 1,000 mg PO BID [facility] Last Admin: 12/11/18 09:22 Dose: 1,000 mg Ondansetron HCl (Zofran Tab) 4 mg PO Q8 PRN PRN Reason: Nausea/Vomiting Pantoprazole Sodium (Protonix Ec Tab) 40 mg PO DAILY [facility] Last Admin: 12/11/18 09:23 Dose: 40 mg Rivaroxaban (Xarelto) 20 mg PO DAILY [facility] Last Admin: 12/10/18 09:08 Dose: 20 mg Sitagliptin Phosphate (Januvia) 50 mg PO DAILY [facility] Last Admin: 12/11/18 09:22 Dose: 50 mg Tramadol HCl (Ultram) 50 mg PO Q8 PRN PRN Reason: Pain, moderate (4-7) Trazodone HCl (Desyrel) 50 mg PO HS PRN PRN Reason: Insomnia Last Admin: 12/10/18 21:01 Dose: 50 mg - Labs Labs: 12/11/18 08:26 12/11/18 08:26 PT 12.6 SECONDS (9.7-12.2) H D 12/11/18 08:26 INR 1.2 D 12/11/18 08:26 APTT 33 SECONDS (21-34) 12/09/18 13:36
[2018-12-11] MEDS ORDERED: Hemorrohoidal Ointment (2 oz) TOP PRN (16:00)
--- NOTE | 2018-12-11 17:18 | PCM.PYCHPN ---
Psychiatric Progress Note - Psychiatric Progress Note Patient seen today, length of contact: 15 Minutes Patient Chief Complaint: "I have no withdrawals today" DSM 5 Symptoms Update: Patient was seen and chart was reviewed. Case was discussed with staff. Issued related to the illness and treatment were discussed with the patient, and issues related to illness and treatment were discussed with the patient and staff. Patient reported compliance with treatment and no adverse effects from the medications were reported. Patient is tolerating treatment well at this time. Patient denies any withdrawal symptoms such as body aches, sweating, nausea, decreased sleep or headaches at this time. Patient reports mood as improved, affect is congruent with mood. He wants to be transferred to the medical floor for GI related issues. Aftercare was discussed with patient and he verbalized understanding. Patient denies any delusions, auditory/visual hallucinations, or perceptual disturbances. Patient also denies any suicidal or homicidal ideation/plan/intent at this time. Medication Change: No Medical Record Reviewed: Yes Mental Status Examination - Cognitive Function Orientation: Person, Place, Situation, Time Memory: Intact Attention: WNL Concentration: WNL Association: WNL Fund of Knowledge: WN Decription of patient's judgement and insights: Fair - Mood Mood: Anxious - Affect Affect: Broad - Speech Speech: Appropriate - Formal Thought Process Formal Thought Process: No Impairment - Suicidal Ideation Suicidal Ideation: No - Homicidal Ideation Homicidal Ideation: No Goal/Treatment Plan - Goal/Treatment Plan Need for Continued Stay: Remain at risks for inpatient hospitalization, Discharge may exacerbated symptoms, Severe functional impairment Estimated Date of D/C: 12/11/18
--- NOTE | 2018-12-11 17:35 | US ---
Date of service: 12/11/2018 HISTORY: eval liver and hepatic vessels COMPARISON: None. TECHNIQUE: Sonographic evaluation of the abdomen. FINDINGS: LIVER: Measures 17.3 cm. Diffusely increased echogenicity of the liver parenchyma. Consistent with fatty infiltration. Smooth contour. No mass. No biliary dilatation. Portal vein patent with normal hepatopetal portal venous flow. Three patent hepatic veins demonstrated. GALLBLADDER: Cholecystectomy COMMON BILE DUCT: Measures 18 mm. Markedly dilated. No associated intrahepatic biliary dilatation. Atypically dilated status post cholecystectomy. Correlate with laboratory evaluation for biliary obstruction. PANCREAS: Unremarkable as visualized. No mass. No ductal dilatation. RIGHT KIDNEY: Measures 12.0cm. Normal echogenicity. 2 cm mid right renal cortical cyst. No calculus. No hydronephrosis. LEFT KIDNEY: Measures 10.8cm. Normal echogenicity. No calculus, mass, or hydronephrosis. SPLEEN: Normal in size and contour. No mass. AORTA: No aneurysmal dilatation. IVC: Unremarkable. OTHER FINDINGS: None. IMPRESSION: Patent portal vein and hepatic veins. Normal hepatopetal portal venous flow. Status post cholecystectomy. Markedly dilated common bile duct without associated intrahepatic biliary dilatation. Uncertain significance. Correlate with laboratory evaluation. Fatty liver. Right renal cortical cyst.
[2018-12-12] MEDS: (Novolin R) Insulin Human Regular 100 units/ml vial SC SCH ×4 (06:52→21:53)
--- NOTE | 2018-12-12 09:25 | CP.PCM.HP ---
History of Present Illness - History of Present Illness History of Present Illness: 63 yr old male with PMHx .Anxiety, Asthma, Atrial Fibrillation, CAD, Cardia Arrhythmia, Depression, Diabetes (type I), Deep Vein Thrombosis, Gall Bladder Disease, Hepatitis (C), HTN, Hypercholesterolemia, Pancreatitis, Chronic Painosu bstance abuse presents to the ED requesting detox from heroin. Patient admits he last used heroin yesterday. Present on Admission - Present on Admission Any Indicators Present on Admission: Yes History of DVT/PE: Yes History of Uncontrolled Diabetes: Yes History Surgical Site Infection Following: CABG - Mediastinitis (R arm ) Review of Systems - Constitutional Constitutional: As Per HPI - EENT Eyes: As Per HPI - Cardiovascular Cardiovascular: Edema - Respiratory Respiratory: As Per HPI - Gastrointestinal Gastrointestinal: As Per HPI - Musculoskeletal Musculoskeletal: As Per HPI - Integumentary Integumentary: As Per HPI - Neurological Neurological: Abnormal Speech - Endocrine Endocrine: Excessive Sweating, Fatigue - Hematologic/Lymphatic Hematologic: As Per HPI Past Patient History - Infectious Disease Hx of Infectious Diseases: None - Past Medical History & Family History Past Medical History?: Yes - Past Social History Smoking Status: Former Smoker Home Situation {Lives}: Alone - CARDIAC Hx Atrial Fibrillation: Yes Hx Cardia Arrhythmia: Yes Hx Circulatory Problems: No Hx Hypercholesterolemia: Yes Hx Hypertension: Yes - PULMONARY Hx Asthma: Yes - NEUROLOGICAL Hx Seizures: No - ENDOCRINE/METABOLIC Hx Endocrine Disorders: Yes Hx Diabetes Mellitus Type 2: Yes - HEMATOLOGICAL/ONCOLOGICAL Hx Human Immunodeficiency Virus (HIV): No - INTEGUMENTARY Hx Dermatological Problems: No - MUSCULOSKELETAL/RHEUMATOLOGICAL Hx Musculoskeletal Disorders: Yes Hx Falls: Yes (Pt states, "i fell last summer when i was doing heroin") Hx Unsteady Gait: Yes (peripheral neuropathy) Other/Comment: Cervical fracture. Right forearm fracture with fixation - GASTROINTESTINAL Hx Gall Bladder Disease: Yes Hx Pancreatitis: Yes - GENITOURINARY/GYNECOLOGICAL Hx Sexually Transmitted Disorders: No - PSYCHIATRIC Hx Substance Use: Yes - SURGICAL HISTORY Hx Cholecystectomy: Yes Hx Coronary Artery Bypass Graft: Yes - ANESTHESIA Hx Anesthesia: Yes Hx Anesthesia Reactions: No Hx Malignant Hyperthermia: No Meds Allergies/Adverse Reactions: Allergies Allergy/AdvReac Type Severity Reaction Status Date / Time Penicillins Allergy Mild RASH Verified 12/07/18 13:29 Physical Exam - Constitutional Appears: Well, Non-toxic, No Acute Distress - Head Exam Head Exam: ATRAUMATIC, NORMAL INSPECTION, NORMOCEPHALIC - Eye Exam Eye Exam: EOMI, PERRL Pupil Exam: NORMAL ACCOMODATION - ENT Exam ENT Exam: Mucous Membranes Moist - Neck Exam Neck exam: Positive for: Thyromegaly (hx of cervical and cervical collar in place ) - Respiratory Exam Respiratory Exam: Clear to Auscultation Bilateral, NORMAL BREATHING PATTERN - Cardiovascular Exam Cardiovascular Exam: Irregular Rhythm - GI/Abdominal Exam GI & Abdominal Exam: Normal Bowel Sounds - Extremities Exam Extremities exam: Positive for: full ROM, pedal pulses present - Neurological Exam Neurological exam: Alert, Oriented x3 Results - Vital Signs Recent Vital Signs: Last Vital Signs Temp 97.7 F 12/12/18 09:01 Pulse 98 H 12/12/18 09:01 Resp 20 12/12/18 09:01 BP 178/93 H 12/12/18 09:01 Pulse Ox 98 12/12/18 09:01 - Labs Result Diagrams: 12/11/18 08:26 12/11/18 08:26 Labs: Laboratory Results - last 24 hr 12/11/18 12/11/18 12/11/18 08:26 08:26 11:25 POC Glucose (mg/dL) 323 H Alpha Fetoprotein 1.3 Carcinoembryonic Ag 1.7 12/11/18 12/11/18 12/12/18 16:36 21:25 06:28 POC Glucose (mg/dL) 315 H 340 H 374 H Alpha Fetoprotein Carcinoembryonic Ag Assessment & Plan (1) Opiate abuse, continuous Status: Acute (2) Abdominal discomfort Status: Acute (3) GI (gastrointestinal bleed) Assessment and Plan: Dr. Collins on GI consult ,plan for EGD on Wednesday will swetha pt NPO hold xaralto Status: Acute
[2018-12-12] MEDS: (Novolin 70/30) NPH/Regular 70/30 Units/ml 10 ml vial SC SCH ×3 (09:35→19:52)
[2018-12-12] MEDS ORDERED: (Novolin R) Insulin Human Regular 100 units/ml vial SC ONE (10:30)
[2018-12-12] MEDS ORDERED: Lactated Ringer's 500 ML IV ONE ×2 (10:32)
[2018-12-12] MEDS ORDERED: Midazolam 2 MG/2 ML VIAL ONE (11:25)
[2018-12-12] MEDS ORDERED: Propofol 10 mg/ml Inj (20 ML) ONE (11:26)
[2018-12-12] MEDS ORDERED: Lidocaine Hydrochloride 5 ML INJ ONE (11:54)
[2018-12-12] MEDS: Pantoprazole 40 mg EC Tab PO SCH (12:30)
--- NOTE | 2018-12-12 12:35 | CP.PCM.PN ---
Subjective - Date & Time of Evaluation Date of Evaluation: 12/12/18 Time of Evaluation: 12:35 - Subjective Subjective: VS STABLE SUGAR ARE UP FOR EGD CPT Objective - Vital Signs/Intake and Output Vital Signs (last 24 hours): Temp Pulse Resp BP Pulse Ox 98.0 F 80 17 144/80 98 12/12/18 11:40 12/12/18 12:25 12/12/18 12:25 12/12/18 12:25 12/12/18 12:25 - Medications Medications: Current Medications Acetaminophen (Tylenol 325mg Tab) 650 mg PO Q4H PRN PRN Reason: Fever greater than 101 F Al Hydrox/Mg Hydrox/Simethicone (Maalox Plus 30 Ml) 30 ml PO Q8 PRN PRN Reason: Indigestion / Heartburn Last Admin: 12/08/18 12:29 Dose: 30 ml Al Hydrox/Mg Hydrox/Simethicone (Maalox 30 Ml) 30 ml PO TID PRN PRN Reason: Indigestion / Heartburn Last Admin: 12/09/18 23:05 Dose: 30 ml Bisacodyl (Dulcolax) 10 mg PO ONCE ONE Stop: 12/12/18 17:01 Clonidine HCl (Catapres) 0.1 mg PO Q4 PRN PRN Reason: COWS Score More or Equal to 5 Last Admin: 12/09/18 21:38 Dose: 0.1 mg Gabapentin (Neurontin) 100 mg PO TID [facility] Last Admin: 12/12/18 10:52 Dose: Not Given Hydroxyzine HCl (Atarax) 25 mg PO Q6 PRN PRN Reason: Anxiety Last Admin: 12/09/18 21:38 Dose: 25 mg Insulin Human Isoph/Insulin Regular (Novolin 70/30 (70/30 Units/Ml) 10 Ml) [facility] Last Admin: 12/12/18 09:35 Dose: Not Given Insulin Human Regular (Novolin R) 0 unit SC [facility]; Protocol Last Admin: 12/12/18 12:30 Dose: Not Given Lisinopril (Zestril) 10 mg PO DAILY [facility] Last Admin: 12/11/18 09:22 Dose: 10 mg Loperamide HCl (Imodium) 2 mg PO Q8 PRN PRN Reason: Diarrhea Metformin HCl (Glucophage) 1,000 mg PO BID [facility] Last Admin: 12/12/18 10:52 Dose: Not Given Multi-Ingredient Ointment (Prep-Hem) 1 ea TOP Q8H PRN PRN Reason: Hemorrhoids Last Admin: 12/11/18 18:52 Dose: 1 applic Ondansetron HCl (Zofran Tab) 4 mg PO Q8 PRN PRN Reason: Nausea/Vomiting Ondansetron HCl (Zofran Inj) 8 mg IVP Q8H [facility] Last Admin: 12/12/18 12:31 Dose: Not Given Pantoprazole Sodium (Protonix Ec Tab) 40 mg PO DAILY [facility] Last Admin: 12/12/18 12:30 Dose: Not Given Polyethylene Glycol/Electrolytes (Golytely) 4,000 ml PO ONCE ONE Stop: 12/12/18 13:01 Rivaroxaban (Xarelto) 20 mg PO DAILY [facility] Last Admin: 12/10/18 09:08 Dose: 20 mg Sitagliptin Phosphate (Januvia) 50 mg PO DAILY [facility] Last Admin: 12/12/18 12:30 Dose: Not Given Tramadol HCl (Ultram) 50 mg PO Q8 PRN PRN Reason: Pain, moderate (4-7) Last Admin: 12/12/18 06:28 Dose: 50 mg Trazodone HCl (Desyrel) 50 mg PO HS PRN PRN Reason: Insomnia Last Admin: 12/11/18 21:32 Dose: 50 mg - Labs Labs: 12/11/18 08:26 12/11/18 08:26 PT 12.6 SECONDS (9.7-12.2) H D 12/11/18 08:26 INR 1.2 D 12/11/18 08:26 APTT 33 SECONDS (21-34) 12/09/18 13:36
[2018-12-12] MEDS ORDERED: Peg-Electrolyte Oral Soln 4L (Golytely) PO ONE (13:00)
[2018-12-12 14:31] LABS: BASO # 0.1 K/uL (0.0-0.2); BASO % 0.6 % (0.0-2.0); EOS # 0.1 K/uL (0.0-0.7); HEMOGLOBIN 9.6 g/dL (12.0-18.0); INR 1.1; LYMPH # 1.6 K/uL (1.0-4.3); LYMPH % 17.7 % (20.0-40.0); MEAN CELL VOLUME 66.7 fL (80.0-94.0); MEAN CORPUSCULAR HEMOGLOBIN 20.4 pg (27.0-31.0); MEAN CORPUSCULAR HGB CONC 30.6 g/dL (33.0-37.0); MEAN PLATELET VOLUME 8.1 fL (7.2-11.7); MONO # 0.5 K/uL (0.0-0.8); MONO % 5.1 % (0.0-10.0); NEUT # 6.9 K/uL (1.8-7.0); NEUT % 75.6 % (50.0-75.0); NRBC % 0.1 % (0.0-2.0); PROTHROMBIN TIME 12.5 SECONDS (9.7-12.2); RBC 4.71 Mil/uL (4.40-5.90); RED CELL DISTRIBUTION WIDTH 19.5 % (11.5-14.5); WHITE BLOOD COUNT 9.1 K/uL (4.8-10.8)
[2018-12-12 14:44] LABS: ALB/GLOB RATIO 1.2 (1.0-2.1); ALBUMIN 3.8 g/dL (3.5-5.0); ALT/SGPT 64 U/L (21-72); AST/SGOT 60 U/L (17-59); BLOOD UREA NITROGEN 16 mg/dL (9-20); CALCIUM 9.2 mg/dl (8.6-10.4); GFR NON-AFRICAN AMERICAN > 60
[2018-12-12] MEDS ORDERED: Bisacodyl 5mg EC Tab PO ONE (17:00)
[2018-12-13] MEDS ORDERED: Dextrose 50% SYRINGE Inj (50 ml) IV PRN (02:22)
[2018-12-13] MEDS ORDERED: Glucagon Recombinant 1 mg Inj IM PRN (02:22)
[2018-12-13] MEDS: (Novolin R) Insulin Human Regular 100 units/ml vial SC SCH ×5 (07:55→22:47)
[2018-12-13] MEDS: (Novolin 70/30) NPH/Regular 70/30 Units/ml 10 ml vial SC SCH ×2 (09:34→17:46)
[2018-12-13] MEDS: Pantoprazole 40 mg EC Tab PO SCH (09:34)
[2018-12-13 11:22] LABS: BASO # 0.1 K/uL (0.0-0.2); BASO % 0.7 % (0.0-2.0); EOS # 0.1 K/uL (0.0-0.7); EOS % 0.8 % (0.0-4.0); HEMOGLOBIN 9.9 g/dL (12.0-18.0); LYMPH # 1.5 K/uL (1.0-4.3); LYMPH % 12.4 % (20.0-40.0); MEAN CORPUSCULAR HEMOGLOBIN 20.1 pg (27.0-31.0); MEAN CORPUSCULAR HGB CONC 30.1 g/dL (33.0-37.0); MEAN PLATELET VOLUME 8.8 fL (7.2-11.7); MONO # 0.6 K/uL (0.0-0.8); MONO % 5.3 % (0.0-10.0); NEUT # 9.5 K/uL (1.8-7.0); NEUT % 80.8 % (50.0-75.0); NRBC % 0.1 % (0.0-2.0); RBC 4.9 Mil/uL (4.40-5.90); RED CELL DISTRIBUTION WIDTH 19.7 % (11.5-14.5); WHITE BLOOD COUNT 11.8 K/uL (4.8-10.8)
[2018-12-13 11:29] LABS: INR 1.1; PROTHROMBIN TIME 11.9 SECONDS (9.7-12.2)
[2018-12-13 11:39] LABS: ALB/GLOB RATIO 1.1 (1.0-2.1); ALBUMIN 3.9 g/dL (3.5-5.0); ALT/SGPT 88 U/L (21-72); AST/SGOT 87 U/L (17-59); BLOOD UREA NITROGEN 13 mg/dL (9-20); CALCIUM 9.4 mg/dl (8.6-10.4); GFR NON-AFRICAN AMERICAN > 60
--- NOTE | 2018-12-13 12:20 | CP.PCM.PN ---
Subjective - Date & Time of Evaluation Date of Evaluation: 12/13/18 Time of Evaluation: 12:19 - Subjective Subjective: NO FURTHER GI BLEEDING SUGAR UP VS STABLE P/E NO CHANGE EGD DONE : NO REPORT IS NPO TODAY FOR ? NO NOTES FROM GI Objective - Vital Signs/Intake and Output Vital Signs (last 24 hours): Temp Pulse Resp BP Pulse Ox 97.7 F 75 20 149/80 97 12/13/18 08:00 12/13/18 08:00 12/13/18 08:00 12/13/18 08:00 12/13/18 08:00 - Medications Medications: Current Medications Acetaminophen (Tylenol 325mg Tab) 650 mg PO Q4H PRN PRN Reason: Fever greater than 101 F Al Hydrox/Mg Hydrox/Simethicone (Maalox Plus 30 Ml) 30 ml PO Q8 PRN PRN Reason: Indigestion / Heartburn Last Admin: 12/08/18 12:29 Dose: 30 ml Al Hydrox/Mg Hydrox/Simethicone (Maalox 30 Ml) 30 ml PO TID PRN PRN Reason: Indigestion / Heartburn Last Admin: 12/09/18 23:05 Dose: 30 ml Clonidine HCl (Catapres) 0.1 mg PO Q4 PRN PRN Reason: COWS Score More or Equal to 5 Last Admin: 12/09/18 21:38 Dose: 0.1 mg Dextrose (Dextrose 50% Inj) 0 ml IV STAT PRN; Protocol PRN Reason: Hypoglycemia Protocol Last Admin: 12/13/18 02:35 Dose: 50 ml Dextrose (Glutose 15) 0 gm PO ONCE PRN; Protocol PRN Reason: Hypoglycemia Protocol Gabapentin (Neurontin) 100 mg PO TID [facility] Last Admin: 12/13/18 09:34 Dose: Not Given Glucagon (Glucagen Diagnostic Kit) 0 mg IM STAT PRN; Protocol PRN Reason: Hypoglycemia Protocol Hydroxyzine HCl (Atarax) 25 mg PO Q6 PRN PRN Reason: Anxiety Last Admin: 12/09/18 21:38 Dose: 25 mg Dextrose (Dextrose 5% In Water 1000 Ml) 1,000 mls @ 0 mls/hr IV .Q0M PRN; Protocol PRN Reason: Hypoglycemia Protocol Insulin Human Isoph/Insulin Regular (Novolin 70/30 (70/30 Units/Ml) 10 Ml) 60 units SC [facility]ID[facility] Last Admin: 12/13/18 09:34 Dose: Not Given Insulin Human Regular (Novolin R) 0 unit SC ACHS [facility]; Protocol Last Admin: 12/13/18 11:33 Dose: Not Given Lisinopril (Zestril) 10 mg PO DAILY [facility] Last Admin: 12/13/18 09:38 Dose: 10 mg Loperamide HCl (Imodium) 2 mg PO Q8 PRN PRN Reason: Diarrhea Metformin HCl (Glucophage) 1,000 mg PO BID [facility] Last Admin: 12/13/18 09:33 Dose: Not Given Multi-Ingredient Ointment (Prep-Hem) 1 ea TOP Q8H PRN PRN Reason: Hemorrhoids Last Admin: 12/11/18 18:52 Dose: 1 applic Ondansetron HCl (Zofran Tab) 4 mg PO Q8 PRN PRN Reason: Nausea/Vomiting Ondansetron HCl (Zofran Inj) 8 mg IVP Q8H [facility] Last Admin: 12/13/18 11:41 Dose: Not Given Pantoprazole Sodium (Protonix Ec Tab) 40 mg PO DAILY [facility] Last Admin: 12/13/18 09:34 Dose: Not Given Rivaroxaban (Xarelto) 20 mg PO DAILY [facility] Last Admin: 12/10/18 09:08 Dose: 20 mg Sitagliptin Phosphate (Januvia) 50 mg PO DAILY [facility] Last Admin: 12/13/18 09:33 Dose: Not Given Tramadol HCl (Ultram) 50 mg PO Q8 PRN PRN Reason: Pain, moderate (4-7) Last Admin: 12/13/18 09:38 Dose: 50 mg Trazodone HCl (Desyrel) 50 mg PO HS PRN PRN Reason: Insomnia Last Admin: 12/12/18 21:53 Dose: 50 mg - Labs Labs: 12/13/18 11:15 12/13/18 11:15 PT 11.9 SECONDS (9.7-12.2) 12/13/18 11:15 INR 1.1 12/13/18 11:15 APTT 33 SECONDS (21-34) 12/09/18 13:36
[2018-12-13] MEDS ORDERED: Lactated Ringer's 1,000 ML IV ONE (12:50)
[2018-12-13] MEDS ORDERED: Propofol 10 mg/ml Inj (20 ML) ONE ×2 (12:51→13:02)
[2018-12-13] MEDS ORDERED: Magnesium Citrate Oral SOL (300 ml) PO ONE (14:30)
[2018-12-13] MEDS ORDERED: Bisacodyl 5mg EC Tab PO ONE (17:00)
--- NOTE | 2018-12-13 21:54 | CARD ---
APPROVED REPORT Date of service: 12/09/2018 EKG Measurement Heart [id number] <Conclusion> Sinus rhythm with 1st degree AV block Possible Inferior infarct, age undetermined Abnormal ECG
[2018-12-14] MEDS: (Novolin R) Insulin Human Regular 100 units/ml vial SC SCH ×2 (08:20→12:23)
[2018-12-14] MEDS: (Novolin 70/30) NPH/Regular 70/30 Units/ml 10 ml vial SC SCH (08:53)
[2018-12-14] MEDS ORDERED: Dextrose 5%/0.45% NS 1,000 ML IV ONE (10:00)
[2018-12-14] MEDS ORDERED: Propofol 10 mg/ml Inj (20 ML) ONE ×3 (10:59→11:17)
[2018-12-14 11:48] VITALS: PULSE 78; TEMP 97.3; O2SAT 99
[2018-12-14 12:09] VITALS: BP 145/75; RESP 17
--- NOTE | 2018-12-14 12:11 | CP.PCM.PN ---
Subjective - Date & Time of Evaluation Date of Evaluation: 12/14/18 Time of Evaluation: 12:09 - Subjective Subjective: s/p COLONOSCOPY AWAITING REPORT NO ACTIVE BLEEDING VS STABLE P/E NO CHANGE FURTHER REC. PER GI Objective - Vital Signs/Intake and Output Vital Signs (last 24 hours): Temp Pulse Resp BP Pulse Ox 97.3 F L 78 17 145/75 99 12/14/18 11:35 12/14/18 12:05 12/14/18 12:05 12/14/18 12:05 12/14/18 12:05 Intake and Output: 12/14/18 12/14/18 11:59 23:59 Intake Total 380 Balance 380 - Medications Medications: Current Medications Acetaminophen (Tylenol 325mg Tab) 650 mg PO Q4H PRN PRN Reason: Fever greater than 101 F Last Admin: 12/13/18 22:45 Dose: 650 mg Al Hydrox/Mg Hydrox/Simethicone (Maalox Plus 30 Ml) 30 ml PO Q8 PRN PRN Reason: Indigestion / Heartburn Last Admin: 12/08/18 12:29 Dose: 30 ml Al Hydrox/Mg Hydrox/Simethicone (Maalox 30 Ml) 30 ml PO TID PRN PRN Reason: Indigestion / Heartburn Last Admin: 12/09/18 23:05 Dose: 30 ml Clonidine HCl (Catapres) 0.1 mg PO Q4 PRN PRN Reason: COWS Score More or Equal to 5 Last Admin: 12/09/18 21:38 Dose: 0.1 mg Dextrose (Dextrose 50% Inj) 0 ml IV STAT PRN; Protocol PRN Reason: Hypoglycemia Protocol Last Admin: 12/13/18 02:35 Dose: 50 ml Dextrose (Glutose 15) 0 gm PO ONCE PRN; Protocol PRN Reason: Hypoglycemia Protocol Gabapentin (Neurontin) 100 mg PO TID [facility] Last Admin: 12/13/18 17:48 Dose: 100 mg Glucagon (Glucagen Diagnostic Kit) 0 mg IM STAT PRN; Protocol PRN Reason: Hypoglycemia Protocol Hydroxyzine HCl (Atarax) 25 mg PO Q6 PRN PRN Reason: Anxiety Last Admin: 12/13/18 22:45 Dose: 25 mg Dextrose (Dextrose 5% In Water 1000 Ml) 1,000 mls @ 0 mls/hr IV .Q0M PRN; Pro tocol PRN Reason: Hypoglycemia Protocol Dextrose/Sodium Chloride (Dextrose 5%/0.45% Ns 1000 Ml) 1,000 mls @ 60 mls/hr IV .[id number] ONE Stop: 12/15/18 02:39 Last Admin: 12/14/18 09:52 Dose: 60 mls/hr Insulin Human Isoph/Insulin Regular (Novolin 70/30 (70/30 Units/Ml) 10 Ml) [facility] Last Admin: 12/14/18 08:53 Dose: 60 units Insulin Human Regular (Novolin R) 0 unit SC ACHS [facility]; Protocol Last Admin: 12/14/18 08:20 Dose: 6 units Lisinopril (Zestril) 10 mg PO DAILY [facility] Last Admin: 12/13/18 09:38 Dose: 10 mg Loperamide HCl (Imodium) 2 mg PO Q8 PRN PRN Reason: Diarrhea Metformin HCl (Glucophage) 1,000 mg PO BID [facility] Last Admin: 12/14/18 09:47 Dose: 1,000 mg Multi-Ingredient Ointment (Prep-Hem) 1 ea TOP Q8H PRN PRN Reason: Hemorrhoids Last Admin: 12/11/18 18:52 Dose: 1 applic Ondansetron HCl (Zofran Tab) 4 mg PO Q8 PRN PRN Reason: Nausea/Vomiting Ondansetron HCl (Zofran Inj) 8 mg IVP Q8H [facility] Last Admin: 12/14/18 05:28 Dose: 8 mg Pantoprazole Sodium (Protonix Ec Tab) 40 mg PO DAILY [facility] Last Admin: 12/13/18 09:34 Dose: Not Given Rivaroxaban (Xarelto) 20 mg PO DAILY [facility] Last Admin: 12/10/18 09:08 Dose: 20 mg Sitagliptin Phosphate (Januvia) 50 mg PO DAILY [facility] Last Admin: 12/14/18 09:49 Dose: 50 mg Tramadol HCl (Ultram) 50 mg PO Q8 PRN PRN Reason: Pain, moderate (4-7) Last Admin: 12/13/18 18:32 Dose: 50 mg Trazodone HCl (Desyrel) 50 mg PO HS PRN PRN Reason: Insomnia Last Admin: 12/13/18 21:17 Dose: 50 mg - Labs Labs: 12/13/18 11:15 03/26/19 11:15 PT 11.9 SECONDS (9.7-12.2) 12/13/18 11:15 INR 1.1 12/13/18 11:15 APTT 33 SECONDS (21-34) 12/09/18 13:36
[2018-12-14] MEDS: Pantoprazole 40 mg EC Tab PO SCH (12:22)
--- NOTE | 2018-12-15 12:48 | CP.PCM.DIS ---
Provider - Provider Date of Admission: 12/07/18 17:39 Attending physician: Amelia Phelps MD Consults: 12/08/18 12:00 Internal Medicine Consult Routine Comment: Consulting Provider: Amleia Phelps Consulting Physician: Amelia Phelps Reason for Consult: uncontrolled diabetes, c/o blood in stool 12/10/18 15:48 Physician Consult Routine Comment: Consulting Provider: Dylon Collins Consulting Physician: Dylon Collins Reason for Consult: anemia, reports melena Time Spent in preparation of Discharge (in minutes): 35 Hospital Course - Lab Results Lab Results: Most Recent Lab Values WBC 11.8 K/uL (4.8-10.8) H 12/13/18 11:15 RBC 4.90 Mil/uL (4.40-5.90) 12/13/18 11:15 Hgb 9.9 g/dL (12.0-18.0) L 12/13/18 11:15 Hct 32.8 % (35.0-51.0) L 12/13/18 11:15 MCV 67.0 fL (80.0-94.0) L 12/13/18 11:15 MCH 20.1 pg (27.0-31.0) L 12/13/18 11:15 MCHC 30.1 g/dL (33.0-37.0) L 12/13/18 11:15 RDW 19.7 % (11.5-14.5) H 12/13/18 11:15 Plt Count 300 K/uL (130-400) 12/13/18 11:15 MPV 8.8 fL (7.2-11.7) 12/13/18 11:15 Neut % (Auto) 80.8 % (50.0-75.0) H 12/13/18 11:15 Lymph % (Auto) 12.4 % (20.0-40.0) L 12/13/18 11:15 Bath % (Auto) 5.3 % (0.0-10.0) 12/13/18 11:15 Eos % (Auto) 0.8 % (0.0-4.0) 12/13/18 11:15 Baso % (Auto) 0.7 % (0.0-2.0) 12/13/18 11:15 Neut # (Auto) 9.5 K/uL (1.8-7.0) H 12/13/18 11:15 Lymph # (Auto) 1.5 K/uL (1.0-4.3) 12/13/18 11:15 Bath # (Auto) 0.6 K/uL (0.0-0.8) 12/13/18 11:15 Eos # (Auto) 0.1 K/uL (0.0-0.7) 12/13/18 11:15 Baso # (Auto) 0.1 K/uL (0.0-0.2) 12/13/18 11:15 PT 11.9 SECONDS (9.7-12.2) 12/13/18 11:15 INR 1.1 12/13/18 11:15 APTT 33 SECONDS (21-34) 12/09/18 13:36 Sodium 132 mmol/L (132-148) 12/13/18 11:15 Potassium 4.9 mmol/L (3.6-5.2) 12/13/18 11:15 Chloride 96 mmol/L (98-107) L 12/13/18 11:15 Carbon Dioxide 30 mmol/L (22-30) 12/13/18 11:15 Anion Gap 12 (10-20) 12/13/18 11:15 BUN 13 mg/dL (9-20) 12/13/18 11:15 Creatinine 0.7 mg/dL (0.8-1.5) L 12/13/18 11:15 Est GFR ( Amer) > 60 12/13/18 11:15 Est GFR (Non-Af Amer) > 60 12/13/18 11:15 POC Glucose (mg/dL) 298 mg/dL (65-110) H 12/14/18 12:15 Random Glucose 281 mg/dL (75-110) H 12/13/18 11:15 Calcium 9.4 mg/dl (8.6-10.4) 12/13/18 11:15 Phosphorus 3.6 mg/dL (2.5-4.5) 12/11/18 08:26 Magnesium 1.5 mg/dL (1.6-2.3) L 12/11/18 08:26 Total Bilirubin 0.3 mg/dL (0.2-1.3) 12/13/18 11:15 AST 87 U/L (17-59) H D 12/13/18 11:15 ALT 88 U/L (21-72) H D 12/13/18 11:15 Alkaline Phosphatase 98 U/L (38-126) 12/13/18 11:15 Total Protein 7.4 g/dL (6.3-8.3) 12/13/18 11:15 Albumin 3.9 g/dL (3.5-5.0) 12/13/18 11:15 Globulin 3.5 gm/dL (2.2-3.9) 12/13/18 11:15 Albumin/Globulin Ratio 1.1 (1.0-2.1) 12/13/18 11:15 Alpha Fetoprotein 1.3 ng/mL (0.0-7.5) 12/11/18 08:26 Carcinoembryonic Ag 1.7 ng/mL (0-3.0) 12/11/18 08:26 Urine Color Yellow (YELLOW) 12/07/18 15:47 Urine Clarity Hazy (Clear) 12/07/18 15:47 Urine pH 6.0 (5.0-8.0) 12/07/18 15:47 Ur Specific [place] 1.026 (1.003-1.030) 12/07/18 15:47 Urine Protein Negative mg/dL (NEGATIVE) 12/07/18 15:47 Urine Glucose (UA) Normal mg/dL (Normal) 12/07/18 15:47 Urine Ketones Negative mg/dL (NEGATIVE) 12/07/18 15:47 Urine Blood Negative (NEGATIVE) 12/07/18 15:47 Urine Nitrate Negative (NEGATIVE) 12/07/18 15:47 Urine Bilirubin Negative (NEGATIVE) 12/07/18 15:47 Urine Urobilinogen Normal mg/dL (0.2-1.0) 12/07/18 15:47 Ur Leukocyte Esterase Neg [place]/uL (Negative) 12/07/18 15:47 Urine WBC (Auto) 3 /hpf (0-5) 12/07/18 15:47 Urine RBC (Auto) 1 /hpf (0-3) 12/07/18 15:47 Ur Squamous Epith Cells < 1 /hpf (0-5) 12/07/18 15:47 Hyaline Casts >20 /lpf (0-2) H 12/07/18 15:47 Stool Occult Blood Negative (NEGATIVE) 12/09/18 17:18 Urine Opiates Screen Positive (NEGATIVE) H 12/07/18 15:47 Urine Methadone Screen Negative (NEGATIVE) 12/07/18 15:47 Ur Barbiturates Screen Negative (NEGATIVE) 12/07/18 15:47 Ur Phencyclidine Scrn Negative (NEGATIVE) 12/07/18 15:47 Ur Amphetamines Screen Negative (NEGATIVE) 12/07/18 15:47 U Benzodiazepines Scrn Negative (NEGATIVE) 12/07/18 15:47 U Oth Cocaine Metabols Negative (NEGATIVE) 12/07/18 15:47 U Cannabinoids Screen Negative (NEGATIVE) 12/07/18 15:47 Alcohol, Quantitative < 10 mg/dl (0-10) 12/07/18 15:47 - Hospital Course Hospital Course: 63 yr old male with PMHx .Anxiety, Asthma, Atrial Fibrillation, CAD, Cardia Arrhythmia, Depression, Diabetes (type I), Deep Vein Thrombosis, Gall Bladder Disease, Hepatitis (C), HTN, Hypercholesterolemia, Pancreatitis, Chronic Painosubstance abuse presents to the ED requesting detox from heroin. Patient admits he last used heroin yesterday. AFTER THE DETOX PT WAS TRANSFERRED TO MEDICAL FLOOR PT HAD EGD/COLONOSCOPY BY DR. COLLINS , NO REPORT PT SIGNED OUT AMA PT WILL F/U WITH HIS PMD Discharge Exam - Head Exam Head Exam: ATRAUMATIC, NORMAL INSPECTION, NORMOCEPHALIC Discharge Plan - Follow Up Plan Condition: STABLE Disposition: AGAINST MEDICAL ADVICE
== END 2018-12-14 14:00 | disposition left against medical advice (07) | DRG 894 ==
LOC: C.ER 13:09 → C.7D 17:39 → C.5S 12-10 15:06 → C.3T 12-12 23:44
PROVIDERS: ADMIT Internal Medicine Cardiovascular Disease; ATTEND Internal Medicine Cardiovascular Disease
PROC: HZ2ZZZZ Detoxification Services for Substance Abuse Treatment (ICD-10-PCS; principal; 2018-12-07)
PROC: HZ52ZZZ Individual Psychotherapy for Substance Abuse Treatment, Cognitive-Behavioral (ICD-10-PCS; 2018-12-07)
PROC: HZ59ZZZ Individual Psychotherapy for Substance Abuse Treatment, Supportive (ICD-10-PCS; 2018-12-07)
PROC: HZ56ZZZ Individual Psychotherapy for Substance Abuse Treatment, Psychoeducation (ICD-10-PCS; 2018-12-07)
PROC: HZ42ZZZ Group Counseling for Substance Abuse Treatment, Cognitive-Behavioral (ICD-10-PCS; 2018-12-07)
PROC: HZ46ZZZ Group Counseling for Substance Abuse Treatment, Psychoeducation (ICD-10-PCS; 2018-12-07)
PROC: GZHZZZZ Group Psychotherapy (ICD-10-PCS; 2018-12-07)
PROC: GZ58ZZZ Individual Psychotherapy, Cognitive-Behavioral (ICD-10-PCS; 2018-12-07)
PROC: GZ56ZZZ Individual Psychotherapy, Supportive (ICD-10-PCS; 2018-12-07)
PROC: 0DB98ZX Excision of Duodenum, Via Natural or Artificial Opening Endoscopic, Diagnostic (ICD-10-PCS; 2018-12-12)
PROC: 0DB68ZX Excision of Stomach, Via Natural or Artificial Opening Endoscopic, Diagnostic (ICD-10-PCS; 2018-12-12)
PROC: 0DJD8ZZ Inspection of Lower Intestinal Tract, Via Natural or Artificial Opening Endoscopic (ICD-10-PCS; 2018-12-13)
PROC: 0DBC8ZX Excision of Ileocecal Valve, Via Natural or Artificial Opening Endoscopic, Diagnostic (ICD-10-PCS; 2018-12-14)
DX: F11.23 Opioid dependence with withdrawal (principal); K92.1 Melena; K86.1 Other chronic pancreatitis; B19.20 Unspecified viral hepatitis C without hepatic coma; D72.829 Elevated white blood cell count, unspecified; E78.00 Pure hypercholesterolemia, unspecified; E11.65 Type 2 diabetes mellitus with hyperglycemia; D50.0 Iron deficiency anemia secondary to blood loss (chronic); I10 Essential (primary) hypertension; K58.9 Irritable bowel syndrome, unspecified; K29.00 Acute gastritis without bleeding; I25.10 Atherosclerotic heart disease of native coronary artery without angina pectoris; I48.91 Unspecified atrial fibrillation; K64.8 Other hemorrhoids; Z79.4 Long term (current) use of insulin; G89.29 Other chronic pain; Z95.1 Presence of aortocoronary bypass graft; J45.909 Unspecified asthma, uncomplicated; F32.9 Major depressive disorder, single episode, unspecified; F41.9 Anxiety disorder, unspecified; Z79.01 Long term (current) use of anticoagulants; E11.40 Type 2 diabetes mellitus with diabetic neuropathy, unspecified; T45.515A Adverse effect of anticoagulants, initial encounter; G47.00 Insomnia, unspecified; Z87.891 Personal history of nicotine dependence

== ENCOUNTER 2018-12-25 14:33 | Emergency (ER) | payer MEDICARE ==
[2018-12-25 14:34] VITALS: BMI 32.3
--- NOTE | 2018-12-25 14:48 | C.PDOC ---
History Of Present Illness 63 years old male brought to ED by EMS for public intoxication. Patient was sitting on a bench outside [address] [facility] [employer] called 911. Patient was brought to ER and given B-50 and Narcan on route. In ED patient is awake, alert, agitated, and yelling that he wants to go home. Patient is ambulatory without assistance. Patient refuses physical examination or vital signs. Patient is fending nurses off with his cane. IV put by EMS was removed and patient was allowed to leave ED. Time Seen by Provider: 12/25/18 14:45 Chief Complaint (Nursing): Medical Clearance History Per: Patient, EMS History/Exam Limitations: no limitations Onset/Duration Of Symptoms: Hrs Current Symptoms Are (Timing): Still Present Recent travel outside of the [place]: No Past Medical History Reviewed: Historical Data, Nursing Documentation, Vital Signs - Medical History PMH: Anxiety, Asthma, Atrial Fibrillation, CAD, Cardia Arrhythmia, Depression, Diabetes (type I), Deep Vein Thrombosis, Gall Bladder Disease, Hepatitis (C), HTN, Hypercholesterolemia, Pancreatitis, Chronic Pain Denies: HIV, Seizures, Sexually Transmitted Disease Surgical History: CABG, Cholecystectomy - [facility] DETOXIFICATION SERVICES FOR SUBSTANCE ABUSE TREATMENT (12/07/18) ESOPHAGOGASTRODUODENOSCOPY [EGD] W/CLOSED BIOPSY (01/28/04) EXCISION OF DUODENUM, ENDO, DIAGN (12/07/18) EXCISION OF ILEOCECAL VALVE, ENDO, DIAGN (12/07/18) EXCISION OF STOMACH, ENDO, DIAGN (12/07/18) GROUP SECURITY ASSOCIATE FOR SUBSTANCE ABUSE TREATMENT, PSYCHOEDUCATION (12/07/18) GROUP SECURITY ASSOCIATE FOR SUBSTANCE ABUSE, COGNITIVE BEHAVIORAL (12/07/18) GROUP PSYCHOTHERAPY (12/07/18) INDIV PSYCHOTHERAPY FOR SUBSTANCE ABUSE TREATMENT, SUPPORT (12/07/18) INDIV PSYCHOTHERAPY FOR SUBSTANCE ABUSE, COGNITIV BEHAVIORAL (12/07/18) INDIV PSYCHOTHERAPY FOR SUBSTANCE ABUSE, PSYCHOEDUCATION (12/07/18) INDIVIDUAL PSYCHOTHERAPY, COGNITIVE-BEHAVIORAL (12/07/18) INDIVIDUAL PSYCHOTHERAPY, SUPPORTIVE (12/07/18) INSPECTION OF HEPATOBILIARY DUCT, ENDO (11/25/16) INSPECTION OF LOWER INTESTINAL TRACT, ENDO (12/07/18) Family History: States: Diabetes, Hypertension - Social History Hx Tobacco Use: No Hx Alcohol Use: No Hx Substance Use: Yes - Immunization History Hx Tetanus Toxoid Vaccination: Yes Hx Influenza Vaccination: Yes Hx Pneumococcal Vaccination: Yes Review Of Systems Except As Marked, All Systems Reviewed And Found Negative. Constitutional: Negative for: Fever, Chills Gastrointestinal: Negative for: Nausea, Vomiting, Diarrhea Skin: Negative for: Rash Neurological: Negative for: Weakness, Numbness Physical Exam - Physical Exam Additional Physical Exam Comments: Unobtainable due to patient's refusal. Medical Decision Making Medical Decision Making: Patient in ED is awake, alert, agitated, and yelling that he wants to go home. Patient is ambulatory without assistance. Patient refuses physical examination or vital signs. Patient is fending nurses off with his cane. IV put by EMS was removed and patient was allowed to leave ED. Patient is agitated, awake, alert, and ambulatory with without difficulty. Patient denies any physical complaints. Patient is stable for discharge and will be discharged. Disposition - Disposition Disposition: ELOPEMENT - ER ONLY Disposition Time: 14:46 Condition: GUARDED Forms: [employer] (Cape Verdean) - Clinical Impression Clinical Impression: Heroin abuse - Scribe Statement The provider has reviewed the documentation as recorded by the Scribe Lucia Colin All medical record entries made by the Scribe were at my direction and personally dictated by me. I have reviewed the chart and agree that the record accurately reflects my personal performance of the history, physical exam, medical decision making, and the department course for this patient. I have also personally directed, reviewed, and agree with the discharge instructions and disposition.
== END 2018-12-25 16:11 | disposition left against medical advice (07) ==
LOC: C.ER 14:33
DX: F11.10 Opioid abuse, uncomplicated (principal)

== ENCOUNTER 2019-01-02 14:50 | Emergency (ER) | payer MEDICARE ==
[2019-01-02 14:50] VITALS: BMI 32.3
[2019-01-02 15:02] VITALS: BP 128/69; O2SAT 97
[2019-01-02 17:17] VITALS: PULSE 94; RESP 16; TEMP 97.9
--- NOTE | 2019-01-02 17:17 | C.PDOC ---
History Of Present Illness 63 y/o male brought to ER by ambulance for ETOH intoxication.Patient states that he also used heroin today.Patient denies having suicidal ideation,homicidal ideation, trauma, and other physical complaints. Chief Complaint (Nursing): Substance Abuse History Per: Patient History/Exam Limitations: no limitations Past Medical History Reviewed: Historical Data, Nursing Documentation, Vital Signs Vital Signs: Last Vital Signs Temp 98.5 F 01/02/19 14:57 Pulse 77 01/02/19 14:57 Resp 20 01/02/19 14:57 BP 128/69 01/02/19 14:57 Pulse Ox 97 01/02/19 14:57 - Medical History PMH: Anxiety, Asthma, Atrial Fibrillation, CAD, Cardia Arrhythmia, Depression, Diabetes (type I), Deep Vein Thrombosis, Gall Bladder Disease, Hepatitis (C), HTN, Hypercholesterolemia, Pancreatitis, Chronic Pain Denies: HIV, Seizures, Sexually Transmitted Disease Surgical History: CABG, [facility] [place] [facility] DETOXIFICATION SERVICES FOR SUBSTANCE ABUSE TREATMENT (12/07/18) ESOPHAGOGASTRODUODENOSCOPY [EGD] W/CLOSED BIOPSY (01/28/04) EXCISION OF DUODENUM, ENDO, DIAGN (12/07/18) EXCISION OF ILEOCECAL VALVE, ENDO, DIAGN (12/07/18) EXCISION OF STOMACH, ENDO, DIAGN (12/07/18) GROUP STEEL WHEEL ENGRAVER FOR SUBSTANCE ABUSE TREATMENT, PSYCHOEDUCATION (12/07/18) GROUP STEEL WHEEL ENGRAVER FOR SUBSTANCE ABUSE, COGNITIVE BEHAVIORAL (12/07/18) GROUP PSYCHOTHERAPY (12/07/18) INDIV PSYCHOTHERAPY FOR SUBSTANCE ABUSE TREATMENT, SUPPORT (12/07/18) INDIV PSYCHOTHERAPY FOR SUBSTANCE ABUSE, COGNITIV BEHAVIORAL (12/07/18) INDIV PSYCHOTHERAPY FOR SUBSTANCE ABUSE, PSYCHOEDUCATION (12/07/18) INDIVIDUAL PSYCHOTHERAPY, COGNITIVE-BEHAVIORAL (12/07/18) INDIVIDUAL PSYCHOTHERAPY, SUPPORTIVE (12/07/18) INSPECTION OF HEPATOBILIARY DUCT, ENDO (11/25/16) INSPECTION OF LOWER INTESTINAL TRACT, ENDO (12/07/18) Family History: States: Diabetes, Hypertension - Social History Hx Tobacco Use: No Hx Alcohol Use: No Hx Substance Use: Yes - Immunization History Hx Tetanus Toxoid Vaccination: Yes Hx Influenza Vaccination: Yes Hx Pneumococcal Vaccination: Yes Review Of Systems Except As Marked, All Systems Reviewed And Found Negative. Constitutional: Negative for: Fever, Chills Psych: Negative for: Suicidal ideation Physical Exam - Physical Exam Appears: No Acute Distress Skin: Normal Color, Warm, Dry Head: Atraumatic, Normacephalic Eye(s): bilateral: Normal Inspection Nose: Normal Oral Mucosa: Moist Neck: Supple Chest: Symmetrical Cardiovascular: Rhythm Regular Respiratory: Normal Breath Sounds, No Rales, No Rhonchi, No Wheezing Gastrointestinal/Abdominal: Normal Exam, Soft, No Tenderness, No Guarding, No Rebound Neurological/Psych: Oriented x3, Normal Speech ED Course And Treatment O2 Sat by Pulse Oximetry: 97 (RA) Pulse Ox Interpretation: Normal Medical Decision Making Medical Decision Making: Plan: --Glucose,POC Disposition - Disposition Referrals: [facility] [Outside] [facility] [Outside] Disposition: HOME/ ROUTINE Disposition Time: 15:50 Condition: IMPROVED Additional Instructions: ENRIQUE VILLELA, thank you for letting us take care of you today. The emergency medical care you received today was directed at your acute symptoms. If you were prescribed any medication, please fill it and take as directed. It may take several days for your symptoms to resolve. Return to the Emergency Department if your symptoms worsen, do not improve, or if you have any other problems. Please contact your doctor or call one of the physicians/clinics you have been referred to that are listed on the Patient Visit Information form that is included in your discharge packet. Bring any paperwork you were given at discharge with you along with any medications you are taking to your follow up visit. Our treatment cannot replace ongoing medical care by a primary care provider outside of the emergency department. Thank you for allowing the [facility] team to be part of your care today. Follow up with your doctor or our clinic this week for outpatient care. Instructions: Drug Abuse and Drug Addiction (DC) Forms: [employer] (Bengali) - Clinical Impression Clinical Impression: Drug abuse - Scribe Statement The provider has reviewed the documentation as recorded by the Dorie Walden Provider Attestation: All medical record entries made by the Kleberibshanice were at my direction and personally dictated by me. I have reviewed the chart and agree that the record accurately reflects my personal performance of the history, physical exam, medical decision making, and the department course for this patient. I have also personally directed, reviewed, and agree with the discharge instructions and disposition.
== END 2019-01-02 16:05 | disposition home or self-care (01) ==
LOC: C.ER 14:50
DX: F19.10 Other psychoactive substance abuse, uncomplicated (principal); E78.00 Pure hypercholesterolemia, unspecified; I10 Essential (primary) hypertension; I25.10 Atherosclerotic heart disease of native coronary artery without angina pectoris; I48.91 Unspecified atrial fibrillation; E11.9 Type 2 diabetes mellitus without complications

== ENCOUNTER 2019-01-06 14:45 | Emergency (ER) | payer MEDICARE ==
[2019-01-06 14:47] VITALS: BMI 32.3
[2019-01-06 15:08] VITALS: BP 125/68; PULSE 92; RESP 18; TEMP 99.3; O2SAT 95
--- NOTE | 2019-01-06 16:51 | C.PDOC ---
History Of Present Illness 63 y/o male brought in by EMS for public intoxication? Upon arrival to the ED patient is difficult to arouse, though he responds to noxious stimuli. Full history unable to be obtained due to patients mental status. Time Seen by Provider: 01/06/19 15:01 Chief Complaint (Nursing): Substance Abuse History Per: Patient History/Exam Limitations: clinical condition Onset/Duration Of Symptoms: Hrs Current Symptoms Are (Timing): Still Present Past Medical History Reviewed: Historical Data, Nursing Documentation, Vital Signs Vital Signs: Last Vital Signs Temp 99.3 F 01/06/19 15:05 Pulse 92 H 01/06/19 15:05 Resp 18 01/06/19 15:05 BP 125/68 01/06/19 15:05 Pulse Ox 95 01/06/19 15:05 - Medical History PMH: Anxiety, Asthma, Atrial Fibrillation, CAD, Cardia Arrhythmia, Depression, Diabetes (type I), Deep Vein Thrombosis, Gall Bladder Disease, Hepatitis (C), HTN, Hypercholesterolemia, Pancreatitis, Chronic Pain Denies: HIV, Seizures, Sexually Transmitted Disease Surgical History: CABG, Cholecystectomy - [facility] Procedures DETOXIFICATION SERVICES FOR SUBSTANCE ABUSE TREATMENT (12/07/18) ESOPHAGOGASTRODUODENOSCOPY [EGD] W/CLOSED BIOPSY (01/28/04) EXCISION OF DUODENUM, ENDO, DIAGN (12/07/18) EXCISION OF ILEOCECAL VALVE, ENDO, DIAGN (12/07/18) EXCISION OF STOMACH, ENDO, DIAGN (12/07/18) GROUP DIGITAL FORENSIC EXAMINER FOR SUBSTANCE ABUSE TREATMENT, PSYCHOEDUCATION (12/07/18) GROUP DIGITAL FORENSIC EXAMINER FOR SUBSTANCE ABUSE, COGNITIVE BEHAVIORAL (12/07/18) GROUP PSYCHOTHERAPY (12/07/18) INDIV PSYCHOTHERAPY FOR SUBSTANCE ABUSE TREATMENT, SUPPORT (12/07/18) INDIV PSYCHOTHERAPY FOR SUBSTANCE ABUSE, COGNITIV BEHAVIORAL (12/07/18) INDIV PSYCHOTHERAPY FOR SUBSTANCE ABUSE, PSYCHOEDUCATION (12/07/18) INDIVIDUAL PSYCHOTHERAPY, COGNITIVE-BEHAVIORAL (12/07/18) INDIVIDUAL PSYCHOTHERAPY, SUPPORTIVE (12/07/18) INSPECTION OF HEPATOBILIARY DUCT, ENDO (11/25/16) INSPECTION OF LOWER INTESTINAL TRACT, ENDO (12/07/18) Family History: States: Diabetes, Hypertension - Social History Hx Tobacco Use: No Hx Alcohol Use: No Hx Substance Use: Yes - Immunization History Hx Tetanus Toxoid Vaccination: Yes Hx Influenza Vaccination: Yes Hx Pneumococcal Vaccination: Yes Review Of Systems Except As Marked, All Systems Reviewed And Found Negative. Constitutional: Negative for: Fever, Weakness Cardiovascular: Negative for: Chest Pain Respiratory: Negative for: Shortness of Breath Gastrointestinal: Negative for: Nausea, Vomiting, Diarrhea Neurological: Negative for: Weakness, Confusion, Dizziness Psych: Negative for: Suicidal ideation (or homicidal) Physical Exam - Physical Exam Appears: No Acute Distress, Other (Somnolent) Skin: Normal Color, Warm, Dry Head: Atraumatic (No indications of trauma to face/scalp), Normacephalic Eye(s): bilateral: Normal Inspection, PERRL, EOMI Oral Mucosa: Moist Neck: Normal ROM Chest: Symmetrical Cardiovascular: Rhythm Regular, No Murmur Respiratory: Normal Breath Sounds, No Accessory Muscle Use Gastrointestinal/Abdominal: Soft (and obese), No Tenderness, No Distention Extremity: Bilateral: Atraumatic, Normal Color And Temperature Pulses: Left Radial: Normal, Right Radial: Normal Neurological/Psych: Other (Responsive to noxious stimuli) ED Course And Treatment O2 Sat by Pulse Oximetry: 95 (RA) Pulse Ox Interpretation: Normal Medical Decision Making Medical Decision Making: Impression: Alcohol vs drug abuse Patient was initially somnolent however shortly after arrival, patient wakes up and is verbal with clear speech. Patient is ambulatory with steady gait. He denies any alcohol, methadone, or drug use. He has a box of cookies and is eating. Patient states he wants to go home and walked out prior to receiving discharge paperwork. Of note, UA +for opioids and benzos. Disposition - Disposition Disposition: HOME/ ROUTINE Disposition Time: 17:32 Condition: STABLE Forms: [employer] (Latvian) - Clinical Impression Clinical Impression: Drug abuse - Scribe Statement The provider has reviewed the documentation as recorded by the Dorie Sanchez Provider Attestation: All medical record entries made by the Dorie were at my direction and personally dictated by me. I have reviewed the chart and agree that the record accurately reflects my personal performance of the history, physical exam, medical decision making, and the department course for this patient. I have also personally directed, reviewed, and agree with the discharge instructions and disposition.
[2019-01-06 17:07] LABS: SQUAMOUS EPITHIAL < 1 /hpf (0-5); URINE BILIRUBIN NEGATIVE (NEGATIVE); URINE BLOOD NEGATIVE (NEGATIVE); URINE CLARITY Hazy (Clear); URINE COLOR Yellow (YELLOW); URINE GLUCOSE (UA) 3+ mg/dL (Normal); URINE HYALINE CAST >20 /lpf (0-2); URINE LEUKOCYTE ESTERASE NEG Leu/uL (Negative); URINE PROTEIN 2+ mg/dL (NEGATIVE); URINE UROBILINOGEN NORMAL mg/dL (0.2-1.0)
[2019-01-06 17:09] LABS: BARBITURATES, UR NEGATIVE (NEGATIVE); PHENCYCLIDINE, UR NEGATIVE (NEGATIVE)
[2019-01-06 17:20] LABS: BENZODIAZEPINES, UR POSITIVE (NEGATIVE); OPIATES, UR POSITIVE (NEGATIVE)
== END 2019-01-06 16:45 | disposition home or self-care (01) ==
LOC: C.ER 14:45
DX: F19.10 Other psychoactive substance abuse, uncomplicated (principal); I25.10 Atherosclerotic heart disease of native coronary artery without angina pectoris; I48.91 Unspecified atrial fibrillation; I10 Essential (primary) hypertension; E11.9 Type 2 diabetes mellitus without complications; E78.00 Pure hypercholesterolemia, unspecified; Z86.718 Personal history of other venous thrombosis and embolism; Z95.1 Presence of aortocoronary bypass graft; Z87.891 Personal history of nicotine dependence
CPT/HCPCS: 81001; 82948; 99283; G0480

== ENCOUNTER 2019-01-11 14:51 | Emergency (ER) | payer MEDICARE ==
[2019-01-11 15:27] VITALS: BP 145/75; PULSE 80; RESP 19; TEMP 97.7; O2SAT 97; BMI 30.7
--- NOTE | 2019-01-11 16:07 | RAD ---
Date of service: 01/11/2019 PROCEDURE: Radiographs of the left shoulder HISTORY: r/o fx COMPARISON: No prior. FINDINGS: BONES: Bone alignment is normal. There is no acute displaced fracture or bone destruction. There is diffuse bone demineralization. JOINTS: The glenohumeral and acromioclavicular joints are preserved. No significant degenerative osteoarthrosis. SOFT TISSUES: Normal. OTHER FINDINGS: None. IMPRESSION: No acute displaced fracture or dislocation. 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
--- NOTE | 2019-01-11 18:45 | C.PDOC ---
History Of Present Illness 63 y/o male comes in to ED complaining of left shoulder pain after climbing to use a ladder. States the pain increases with movement of left arm. Denies chest pain or SOB. Patient denies falling off the ladder or recent trauma to the shoulder. Chief Complaint (Nursing): Upper Extremity Problem/Injury History Per: Patient History/Exam Limitations: no limitations Onset/Duration Of Symptoms: Hrs Current Symptoms Are (Timing): Still Present Past Medical History Reviewed: Historical Data, Nursing Documentation, Vital Signs Vital Signs: Last Vital Signs Temp 97.7 F 01/11/19 15:22 Pulse 80 01/11/19 15:22 Resp 19 01/11/19 15:22 BP 145/75 01/11/19 15:22 Pulse Ox 97 01/11/19 15:22 - Medical History PMH: Anxiety, Asthma, Atrial Fibrillation, CAD, Cardia Arrhythmia, Depression, Diabetes (type I), Deep Vein Thrombosis, Gall Bladder Disease, Hepatitis (C), HTN, Hypercholesterolemia, Pancreatitis, Chronic Pain Denies: HIV, Seizures, Sexually Transmitted Disease Surgical History: CABG, Cholecystectomy - [facility] Procedures DETOXIFICATION SERVICES FOR SUBSTANCE ABUSE TREATMENT (12/07/18) ESOPHAGOGASTRODUODENOSCOPY [EGD] W/CLOSED BIOPSY (01/28/04) EXCISION OF DUODENUM, ENDO, DIAGN (12/07/18) EXCISION OF ILEOCECAL VALVE, ENDO, DIAGN (12/07/18) EXCISION OF STOMACH, ENDO, DIAGN (12/07/18) GROUP CHIEF NUCLEAR MEDICINE TECHNOLOGIST FOR SUBSTANCE ABUSE TREATMENT, PSYCHOEDUCATION (12/07/18) GROUP CHIEF NUCLEAR MEDICINE TECHNOLOGIST FOR SUBSTANCE ABUSE, COGNITIVE BEHAVIORAL (12/07/18) GROUP PSYCHOTHERAPY (12/07/18) INDIV PSYCHOTHERAPY FOR SUBSTANCE ABUSE TREATMENT, SUPPORT (12/07/18) INDIV PSYCHOTHERAPY FOR SUBSTANCE ABUSE, COGNITIV BEHAVIORAL (12/07/18) INDIV PSYCHOTHERAPY FOR SUBSTANCE ABUSE, PSYCHOEDUCATION (12/07/18) INDIVIDUAL PSYCHOTHERAPY, COGNITIVE-BEHAVIORAL (12/07/18) INDIVIDUAL PSYCHOTHERAPY, SUPPORTIVE (12/07/18) INSPECTION OF HEPATOBILIARY DUCT, ENDO (11/25/16) INSPECTION OF LOWER INTESTINAL TRACT, ENDO (12/07/18) Family History: States: Diabetes, Hypertension - Social History Hx Tobacco Use: No Hx Alcohol Use: No Hx Substance Use: Yes - Immunization History Hx Tetanus Toxoid Vaccination: Yes Hx Influenza Vaccination: Yes Hx Pneumococcal Vaccination: Yes Review Of Systems Except As Marked, All Systems Reviewed And Found Negative. Cardiovascular: Negative for: Chest Pain Respiratory: Negative for: Shortness of Breath Musculoskeletal: Positive for: Shoulder Pain (left) Physical Exam - Physical Exam Appears: Non-toxic, No Acute Distress Skin: Warm, Dry Head: Atraumatic Eye(s): bilateral: Normal Inspection Oral Mucosa: Moist Neck: Supple Cardiovascular: Rhythm Regular, No Murmur Extremity: No Tenderness, No Deformity, No Swelling, Other (decreased ROM of left shoulder) Extremity: Bilateral: Atraumatic, Normal Color And Temperature Neurological/Psych: Oriented x3, Normal Speech, Normal Motor, Normal Sensation ED Course And Treatment O2 Sat by Pulse Oximetry: 97 (RA) Pulse Ox Interpretation: Normal - Other Rad Left Shoulder XR X-Ray: Read By Radiologist Interpretation: FINDINGS: BONES: Bone alignment is normal. There is no acute displaced fracture or bone destruction. There is diffuse bone demineralization. JOINTS: The glenohumeral and acromioclavicular joints are preserved. No significant degenerative osteoarthrosis. SOFT TISSUES: Normal. OTHER FIN DINGS: None. IMPRESSION: No acute displaced fracture or dislocation. 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 Medical Decision Making Medical Decision Making: Plan: --Left Shoulder XR Progress: Patient admits after XR that he had rotated cuff surgery on that shoulder 4 years ago. Patient was advised to follow up with his PMD or orthopedics doctor. Disposition - Disposition Referrals: [facility] Tania Basurto, [Non-Staff] - Disposition: HOME/ ROUTINE Disposition Time: 16:10 Condition: GOOD Additional Instructions: ENRIQUE VILLELA, thank you for letting us take care of you today. The emergency medical care you received today was directed at your acute symptoms. If you were prescribed any medication, please fill it and take as directed. It may take several days for your symptoms to resolve. Return to the Emergency Department if your symptoms worsen, do not improve, or if you have any other problems. Please contact your doctor or call one of the physicians/clinics you have been referred to that are listed on the Patient Visit Information form that is included in your discharge packet. Bring any paperwork you were given at discharge with you along with any medications you are taking to your follow up visit. Our treatment cannot replace ongoing medical care by a primary care nataliya ordoñez outside of the emergency department. Thank you for allowing the [facility] team to be part of your care today. Follow up with your primary care doctor and your orthopedic doctor in 2-3 days for re-evaluation and further management of your left shoulder. Instructions: Shoulder Sprain (DC) Forms: [employer] (Turkish) - Clinical Impression Clinical Impression: Shoulder sprain - Scribe Statement The provider has reviewed the documentation as recorded by the Dorie Silver Provider Attestation: All medical record entries made by the Dorie were at my direction and personally dictated by me. I have reviewed the chart and agree that the record accurately reflects my personal performance of the history, physical exam, medical decision making, and the department course for this patient. I have also personally directed, reviewed, and agree with the discharge instructions and disposition.
== END 2019-01-11 16:45 | disposition home or self-care (01) ==
LOC: C.ER 14:51
DX: S43.402A Unspecified sprain of left shoulder joint, initial encounter (principal); X58.XXXA Exposure to other specified factors, initial encounter

== ENCOUNTER 2019-01-20 15:42 | Emergency (ER) | payer MEDICARE ==
[2019-01-20 15:53] VITALS: BMI 26.3
[2019-01-20 15:55] VITALS: BP 118/51; PULSE 76; RESP 18; TEMP 98.4; O2SAT 95
--- NOTE | 2019-01-20 16:19 | C.PDOC ---
History Of Present Illness 63 y/o male brought in by EMS after he walked into a courthouse and stated he wanted to shoot himself. Patient admits he had done heroin earlier in the morning. During interview patient states he does not want to harm himself. He denies everything listed in triage denies hallucinations, HI, and SI. Denies having abdominal pain. States his only complaint is that he is hungry, requesting sandwich. Patient sleeping upon arrival but is easily arousable, answering questions with clear speech. Time Seen by Provider: 01/20/19 15:55 Chief Complaint (Nursing): Medical Clearance History Per: Patient History/Exam Limitations: no limitations Onset/Duration Of Symptoms: Hrs Current Symptoms Are (Timing): Still Present Past Medical History Reviewed: Historical Data, Nursing Documentation, Vital Signs Vital Signs: Last Vital Signs Temp 98.4 F 01/20/19 15:50 Pulse 76 01/20/19 15:50 Resp 18 01/20/19 15:50 BP 118/51 L 01/20/19 15:50 Pulse Ox 95 01/20/19 15:50 Primary Care Provider: Edgar Garcia F - Medical History PMH: Anxiety, Asthma, Atrial Fibrillation, CAD, Cardia Arrhythmia, Depression, Diabetes (type I), Deep Vein Thrombosis, Gall Bladder Disease, Hepatitis (C), HTN, Hypercholesterolemia, Pancreatitis, Chronic Pain Denies: HIV, Seizures, Sexually Transmitted Disease Surgical History: CABG, Cholecystectomy - [facility] Procedures DETOXIFICATION SERVICES FOR SUBSTANCE ABUSE TREATMENT (12/07/18) ESOPHAGOGASTRODUODENOSCOPY [EGD] W/CLOSED BIOPSY (01/28/04) EXCISION OF DUODENUM, ENDO, DIAGN (12/07/18) EXCISION OF ILEOCECAL VALVE, ENDO, DIAGN (12/07/18) EXCISION OF STOMACH, ENDO, DIAGN (12/07/18) GROUP BEDSPREAD CUTTER FOR SUBSTANCE ABUSE TREATMENT, PSYCHOEDUCATION (12/07/18) GROUP BEDSPREAD CUTTER FOR SUBSTANCE ABUSE, COGNITIVE BEHAVIORAL (12/07/18) GROUP PSYCHOTHERAPY (12/07/18) INDIV PSYCHOTHERAPY FOR SUBSTANCE ABUSE TREATMENT, SUPPORT (12/07/18) INDIV PSYCHOTHERAPY FOR SUBSTANCE ABUSE, COGNITIV BEHAVIORAL (12/07/18) INDIV PSYCHOTHERAPY FOR SUBSTANCE ABUSE, PSYCHOEDUCATION (12/07/18) INDIVIDUAL PSYCHOTHERAPY, COGNITIVE-BEHAVIORAL (12/07/18) INDIVIDUAL PSYCHOTHERAPY, SUPPORTIVE (12/07/18) INSPECTION OF HEPATOBILIARY DUCT, ENDO (11/25/16) INSPECTION OF LOWER INTESTINAL TRACT, ENDO (12/07/18) Family History: States: Diabetes, Hypertension - Social History Hx Tobacco Use: No Hx Alcohol Use: No Hx Substance Use: Yes (heroin) - Immunization History Hx Tetanus Toxoid Vaccination: Yes Hx Influenza Vaccination: Yes Hx Pneumococcal Vaccination: Yes Review Of Systems Except As Marked, All Systems Reviewed And Found Negative. Constitutional: Negative for: Fever Cardiovascular: Negative for: Chest Pain Respiratory: Negative for: Shortness of Breath Gastrointestinal: Negative for: Vomiting, Abdominal Pain Neurological: Negative for: Weakness, Headache Psych: Positive for: Other (Heroin abuse). Negative for: Suicidal ideation Physical Exam - Physical Exam Appears: Non-toxic, No Acute Distress Skin: Warm, Dry, No Rash Head: Atraumatic, Normacephalic Eye(s): bilateral: Normal Inspection, PERRL, EOMI Oral Mucosa: Moist Teeth: Edentulous (multiple missing, poor dentition) Neck: Normal ROM Chest: Symmetrical Cardiovascular: Rhythm Regular, No Murmur Respiratory: Normal Breath Sounds, No Accessory Muscle Use Gastrointestinal/Abdominal: Soft (and obese), No Tenderness, No Distention Extremity: Bilateral: Atraumatic, Normal Color And Temperature Neurological/Psych: Other (Sleeping, easily arousable, speaking clearly but nodding off during conversation) ED Course And Treatment O2 Sat by Pulse Oximetry: 95 (on RA) Pulse Ox Interpretation: Normal Medical Decision Making Medical Decision Making: Plan: Accucheck done, BS is 68. Patient given sandwich in the ED. After eating half the sandwich, patient states he wants to leave. 16:40 On reassessment patient is requesting to leave, with clear speech. He remains oriented x3 and is ambulating in the ED with a steady gait. Will discharge patient home. Disposition Counseled Patient/Family Regarding: Diagnosis - Disposition Referrals: [facility] [Outside] Disposition: HOME/ ROUTINE Disposition Time: 16:41 Condition: IMPROVED Instructions: Opioid Use Disorder Forms: [facility] (Jordanian), General Discharge Instructions - POA Present On Arrival: None - Clinical Impression Clinical Impression: Opioid abuse - Scribe Statement The provider has reviewed the documentation as recorded by the Scribe Vero Sanchez Provider Attestation: All medical record entries made by the Scribe were at my direction and personally dictated by me. I have reviewed the chart and agree that the record accurately reflects my personal performance of the history, physical exam, medical decision making, and the department course for this patient. I have also personally directed, reviewed, and agree with the discharge instructions and disposition.
== END 2019-01-20 16:52 | disposition home or self-care (01) ==
LOC: C.ER 15:42
DX: F11.10 Opioid abuse, uncomplicated (principal); E11.9 Type 2 diabetes mellitus without complications

== ENCOUNTER 2019-01-22 13:48 | Emergency (ER) | payer MEDICARE, MEDICAID ==
[2019-01-22 13:51] VITALS: BP 150/78; PULSE 91; RESP 20; TEMP 97.8; O2SAT 96
[2019-01-22 13:55] VITALS: BMI 30.8
--- NOTE | 2019-01-22 14:14 | C.PDOC ---
History Of Present Illness 63 year old male with hx of substance abuse presents to the ED BIBA for public intoxication. Patient denies having suicidal ideation,homicidal ideation, trauma, and other physical complaints. Time Seen by Provider: 01/22/19 13:59 Chief Complaint (Nursing): Substance Abuse History Per: Patient History/Exam Limitations: intoxication Onset/Duration Of Symptoms: Hrs Current Symptoms Are (Timing): Still Present Suicide/Self Injury Attempted (Context): None Modifying Factor(s): Alcohol, Narcotics (Heroin ) Associated Symptoms: denies: Suicidal Thoughts, Suicidal Plan Past Medical History Reviewed: Historical Data, Nursing Documentation, Vital Signs Vital Signs: Last Vital Signs Temp 97.8 F 01/22/19 13:50 Pulse 91 H 01/22/19 13:50 Resp 20 01/22/19 13:50 BP 150/78 01/22/19 13:50 Pulse Ox 96 01/22/19 13:50 - Medical History PMH: Anxiety, Asthma, Atrial Fibrillation, CAD, Cardia Arrhythmia, Depression, Diabetes (type I), Deep Vein Thrombosis, Gall Bladder Disease, Hepatitis (C), HTN, Hypercholesterolemia, Pancreatitis, Chronic Pain Denies: HIV, Seizures, Sexually Transmitted Disease Surgical History: CABG, Cholecystectomy - [facility] Procedures DETOXIFICATION SERVICES FOR SUBSTANCE ABUSE TREATMENT (12/07/18) ESOPHAGOGASTRODUODENOSCOPY [EGD] W/CLOSED BIOPSY (01/28/04) EXCISION OF DUODENUM, ENDO, DIAGN (12/07/18) EXCISION OF ILEOCECAL VALVE, ENDO, DIAGN (12/07/18) EXCISION OF STOMACH, ENDO, DIAGN (12/07/18) GROUP INDUSTRIAL TRUCK MECHANIC FOR SUBSTANCE ABUSE TREATMENT, PSYCHOEDUCATION (12/07/18) GROUP INDUSTRIAL TRUCK MECHANIC FOR SUBSTANCE ABUSE, COGNITIVE BEHAVIORAL (12/07/18) GROUP PSYCHOTHERAPY (12/07/18) INDIV PSYCHOTHERAPY FOR SUBSTANCE ABUSE TREATMENT, SUPPORT (12/07/18) INDIV PSYCHOTHERAPY FOR SUBSTANCE ABUSE, COGNITIV BEHAVIORAL (12/07/18) INDIV PSYCHOTHERAPY FOR SUBSTANCE ABUSE, PSYCHOEDUCATION (12/07/18) INDIVIDUAL PSYCHOTHERAPY, COGNITIVE-BEHAVIORAL (12/07/18) INDIVIDUAL PSYCHOTHERAPY, SUPPORTIVE (12/07/18) INSPECTION OF HEPATOBILIARY DUCT, ENDO (11/25/16) INSPECTION OF LOWER INTESTINAL TRACT, ENDO (12/07/18) Family History: States: Diabetes, Hypertension - Social History Hx Tobacco Use: No Hx Alcohol Use: No Hx Substance Use: Yes (heroin) - Immunization History Hx Tetanus Toxoid Vaccination: Yes Hx Influenza Vaccination: Yes Hx Pneumococcal Vaccination: Yes Review Of Systems Constitutional: Positive for: Other (intoxication ). Negative for: Fever, Chills Cardiovascular: Negative for: Chest Pain Respiratory: Negative for: Shortness of Breath Gastrointestinal: Negative for: Nausea, Vomiting, Abdominal Pain, Diarrhea Physical Exam - Physical Exam Appears: Non-toxic, Other (drowsy ) Skin: Warm, Dry, No Rash Head: Normacephalic Eye(s): bilateral: Other (Pinpoint pupils ) Nose: Normal Oral Mucosa: Moist Neck: Supple Chest: Symmetrical Cardiovascular: Rhythm Regular Respiratory: Normal Breath Sounds, No Rales, No Rhonchi, No Wheezing Gastrointestinal/Abdominal: Soft, No Tenderness Neurological/Psych: Oriented x3, Normal Speech ED Course And Treatment O2 Sat by Pulse Oximetry: 96 (RA) Pulse Ox Interpretation: Normal Disposition Counseled Patient/Family Regarding: Studies Performed, Diagnosis, Need For Followup - Disposition Referrals: [facility] [Outside] Disposition: HOME/ ROUTINE Disposition Time: 15:50 Condition: STABLE Instructions: Drug Abuse and Drug Addiction (DC) Forms: [employer] (Bruneian) Print Language: VIETNAMESE - Clinical Impression Clinical Impression: Heroin abuse - Scribe Statement The provider has reviewed the documentation as recorded by the Scribshanice Fernández All medical record entries made by the Scribe were at my direction and personally dictated by me. I have reviewed the chart and agree that the record accurately reflects my personal performance of the history, physical exam, medical decision making, and the department course for this patient. I have also personally directed, reviewed, and agree with the discharge instructions and disposition.
== END 2019-01-22 16:18 | disposition home or self-care (01) ==
LOC: C.ER 13:48
DX: F11.10 Opioid abuse, uncomplicated (principal); E11.9 Type 2 diabetes mellitus without complications

== ENCOUNTER 2019-01-31 11:59 | Emergency (ER) | payer MEDICARE, MEDICAID ==
[2019-01-31 12:00] VITALS: BMI 31.8
[2019-01-31 12:11] VITALS: BP 150/74; PULSE 75; RESP 20; TEMP 97.6; O2SAT 98
--- NOTE | 2019-01-31 16:12 | C.PDOC ---
History Of Present Illness 63 y/o male presents to the ER requesting copy of his X-Ray of the left shoulder. Patient was recently evaluated for left shoulder pain in [facility] and states he has an X-Ray done that showed a "fracture" and he "needs surgery". He stats he has an appointment scheduled with an orthopedist next week. He denies new injuries, fever, sensory changes, headache, dizziness. Time Seen by Provider: 01/31/19 12:29 Chief Complaint (Nursing): Upper Extremity Problem/Injury History Per: Patient History/Exam Limitations: no limitations Past Medical History Reviewed: Historical Data, Nursing Documentation, Vital Signs Vital Signs: Last Vital Signs Temp 97.6 F 01/31/19 12:10 Pulse 75 01/31/19 12:10 Resp 20 01/31/19 12:10 BP 150/74 01/31/19 12:10 Pulse Ox 98 01/31/19 12:10 Primary Care Provider: Non [facility] Provider, - Medical History PMH: Anxiety, Asthma, Atrial Fibrillation, CAD, Cardia Arrhythmia, Depression, Diabetes (type I), Deep Vein Thrombosis, Gall Bladder Disease, Hepatitis (C), HTN, Hypercholesterolemia, Pancreatitis, Chronic Pain Surgical History: CABG, Cholecystectomy - [facility] Procedures DETOXIFICATION SERVICES FOR SUBSTANCE ABUSE TREATMENT (12/07/18) ESOPHAGOGASTRODUODENOSCOPY [EGD] W/CLOSED BIOPSY (01/28/04) EXCISION OF DUODENUM, ENDO, DIAGN (12/07/18) EXCISION OF ILEOCECAL VALVE, ENDO, DIAGN (12/07/18) EXCISION OF STOMACH, ENDO, DIAGN (12/07/18) GROUP LAPPING MACHINE OPERATOR FOR SUBSTANCE ABUSE TREATMENT, PSYCHOEDUCATION (12/07/18) GROUP LAPPING MACHINE OPERATOR FOR SUBSTANCE ABUSE, COGNITIVE BEHAVIORAL (12/07/18) GROUP PSYCHOTHERAPY (12/07/18) INDIV PSYCHOTHERAPY FOR SUBSTANCE ABUSE TREATMENT, SUPPORT (12/07/18) INDIV PSYCHOTHERAPY FOR SUBSTANCE ABUSE, COGNITIV BEHAVIORAL (12/07/18) INDIV PSYCHOTHERAPY FOR SUBSTANCE ABUSE, PSYCHOEDUCATION (12/07/18) INDIVIDUAL PSYCHOTHERAPY, COGNITIVE-BEHAVIORAL (12/07/18) INDIVIDUAL PSYCHOTHERAPY, SUPPORTIVE (12/07/18) INSPECTION OF HEPATOBILIARY DUCT, ENDO (11/25/16) INSPECTION OF LOWER INTESTINAL TRACT, ENDO (12/07/18) Family History: States: Diabetes, Hypertension - Social History Hx Tobacco Use: No Hx Alcohol Use: (unknown) Hx Substance Use: Yes - Immunization History Hx Tetanus Toxoid Vaccination: Yes Hx Influenza Vaccination: Yes Hx Pneumococcal Vaccination: Yes Review Of Systems Constitutional: Negative for: Fever Cardiovascular: Negative for: Chest Pain, Palpitations Respiratory: Negative for: Shortness of Breath Gastrointestinal: Negative for: Nausea, Vomiting, Abdominal Pain Musculoskeletal: Positive for: Shoulder Pain (chronic) Neurological: Negative for: Weakness, Numbness, Headache, Dizziness Physical Exam - Physical Exam Appears: Well, Non-toxic, No Acute Distress, Chronically Ill, Other (awake,alert) Skin: Normal Color, Warm, Dry, No Rash Head: Atraumatic, Normacephalic Eye(s): bilateral: Normal Inspection Oral Mucosa: Moist Neck: Supple Cardiovascular: Rhythm Regular Respiratory: Normal Breath Sounds, No Rales, No Rhonchi, No Wheezing Extremity: Normal ROM, No Tenderness, No Swelling Extremity: Bilateral: Atraumatic, Normal Color And Temperature, Normal ROM Neurological/Psych: Oriented x3 Gait: Steady ED Course And Treatment O2 Sat by Pulse Oximetry: 98 (RA) Pulse Ox Interpretation: Normal Progress Note: Xray report reviewed - negative for fracture. Copy of Xray report given to patient as requested. He was instructed to follow up with ortho as scheduled. Disposition - Disposition Referrals: [facility] [Outside] Disposition: HOME/ ROUTINE Disposition Time: 12:45 Condition: STABLE Forms: General Discharge Instructions Print Language: KHMER - Clinical Impression Clinical Impression: Chronic shoulder pain - Scribe Statement The provider has reviewed the documentation as recorded by the Dorie Walden Provider Attestation: All medical record entries made by the Dorie were at my direction and personally dictated by me. I have reviewed the chart and agree that the record accurately reflects my personal performance of the history, physical exam, medical decision making, and the department course for this patient. I have also personally directed, reviewed, and agree with the discharge instructions and disposition.
== END 2019-01-31 12:53 | disposition home or self-care (01) ==
LOC: C.ER 11:59
DX: G89.29 Other chronic pain (principal); M25.512 Pain in left shoulder

== ENCOUNTER 2019-02-04 19:38 | Emergency (ER) | payer MEDICARE, MEDICAID ==
[2019-02-04 19:39] VITALS: BMI 31.8
[2019-02-04 20:04] VITALS: TEMP 98.1
[2019-02-04] MEDS ORDERED: Sodium Chloride 0.9% 1,000 ML IV ONE ×2 (20:23→20:24)
--- NOTE | 2019-02-04 20:35 | C.PDOC ---
History Of Present Illness 63 y/o male, with history of heroin abuse, IDDM, asthma, anxiety, CAD, hepatitis C, pancreatitis, and depresion, presents to ED stating that his doctor put him on oxycodone for chronic bilateral lower extremity pain. States he took percocet for the pain. Denies SI/HI or hallucinations. Denies any pain currently. Reports he was in assisted for 10 days recently and went to medical center after. Patient denies any complaints at this time. Time Seen by Provider: 02/04/19 20:13 Chief Complaint (Nursing): Lower Extremity Problem/Injury History Per: Patient History/Exam Limitations: no limitations Onset/Duration Of Symptoms: Days Current Symptoms Are (Timing): Still Present Past Medical History Reviewed: Historical Data, Nursing Documentation, Vital Signs Vital Signs: Last Vital Signs Temp 98.1 F 02/04/19 19:47 Pulse 72 02/04/19 19:47 Resp 16 02/04/19 19:47 BP 121/68 02/04/19 19:47 Pulse Ox 95 02/04/19 19:47 Primary Care Provider: Non [facility] Provider, - Medical History PMH: Anxiety, Asthma, Atrial Fibrillation, CAD, Cardia Arrhythmia, Depression, Diabetes (type I), Deep Vein Thrombosis, Gall Bladder Disease, Hepatitis (C), HTN, Hypercholesterolemia, Pancreatitis, Chronic Pain Denies: HIV, Seizures, Sexually Transmitted Disease Surgical History: CABG, Cholecystectomy - [facility] Procedures DETOXIFICATION SERVICES FOR SUBSTANCE ABUSE TREATMENT (12/07/18) ESOPHAGOGASTRODUODENOSCOPY [EGD] W/CLOSED BIOPSY (01/28/04) EXCISION OF DUODENUM, ENDO, DIAGN (12/07/18) EXCISION OF ILEOCECAL VALVE, ENDO, DIAGN (12/07/18) EXCISION OF STOMACH, ENDO, DIAGN (12/07/18) GROUP JOURNEYMAN WIREMAN FOR SUBSTANCE ABUSE TREATMENT, PSYCHOEDUCATION (12/07/18) GROUP JOURNEYMAN WIREMAN FOR SUBSTANCE ABUSE, COGNITIVE BEHAVIORAL (12/07/18) GROUP PSYCHOTHERAPY (12/07/18) INDIV PSYCHOTHERAPY FOR SUBSTANCE ABUSE TREATMENT, SUPPORT (12/07/18) INDIV PSYCHOTHERAPY FOR SUBSTANCE ABUSE, COGNITIV BEHAVIORAL (12/07/18) INDIV PSYCHOTHERAPY FOR SUBSTANCE ABUSE, PSYCHOEDUCATION (12/07/18) INDIVIDUAL PSYCHOTHERAPY, COGNITIVE-BEHAVIORAL (12/07/18) INDIVIDUAL PSYCHOTHERAPY, SUPPORTIVE (12/07/18) INSPECTION OF HEPATOBILIARY DUCT, ENDO (11/25/16) INSPECTION OF LOWER INTESTINAL TRACT, ENDO (12/07/18) Family History: States: Diabetes, Hypertension - Social History Hx Tobacco Use: No Hx Alcohol Use: (denies) Hx Substance Use: Yes - Immunization History Hx Tetanus Toxoid Vaccination: (unk) Hx Influenza Vaccination: (unk) Hx Pneumococcal Vaccination: (unk) Review Of Systems Except As Marked, All Systems Reviewed And Found Negative. Constitutional: Negative for: Fever, Chills Musculoskeletal: Positive for: Other (bilateral lower extremity pain) Psych: Negative for: Psychosis (hallucinations), Suicidal ideation, Other (homicidal ideation) Physical Exam - Physical Exam Appears: Well, Non-toxic, No Acute Distress, Other (Drowsy but arousable) Skin: Warm, Dry Head: Normacephalic Eye(s): bilateral: PERRL (pupils pinpoint) Oral Mucosa: Dry Cardiovascular: Rhythm Regular, No Murmur Respiratory: Normal Breath Sounds, No Rales, No Rhonchi, No Wheezing Gastrointestinal/Abdominal: Bowel Sounds (normal), Soft, No Tenderness, Distenti on, No Guarding, No Rebound Extremity: Bilateral: Atraumatic, Normal Color And Temperature, Normal ROM Neurological/Psych: Oriented x3, Normal Speech, Normal Motor, Normal Sensation ED Course And Treatment - Laboratory Results Result Diagrams: 02/04/19 21:35 02/04/19 20:39 O2 Sat by Pulse Oximetry: 95 (RA) Pulse Ox Interpretation: Normal Medical Decision Making Medical Decision Making: Plan: --EKG --Labs --UA --IV fluids Patient reassessed multiple times during course in ED. Patient's glucose improved after ivf. Labs d/w patient. Hgb 8, near baseline. Patient has no complaints at this time and is awake and alert and requests discharge home. Disposition - Disposition Referrals: [facility] [Outside] Disposition: HOME/ ROUTINE Disposition Time: 00:00 Condition: IMPROVED Instructions: Chronic Pain (DC), Hyperglycemia, Adult (DC), Prescription Drug Abuse (DC) Forms: [facility] (Panamanian), General Discharge Instructions - POA Present On Arrival: Poor Glycemic Control - Clinical Impression Clinical Impression: Opioid abuse, Hyperglycemia, Chronic pain of lower extremity, bilateral - Scribe Statement The provider has reviewed the documentation as recorded by the Scribe Tatiana Daus Provider Attestation: All medical record entries made by the Dorie were at my direction and personally dictated by me. I have reviewed the chart and agree that the record accurately reflects my personal performance of the history, physical exam, medical decision making, and the department course for this patient. I have also personally directed, reviewed, and agree with the discharge instructions and di sposition.
[2019-02-04 21:02] LABS: ALBUMIN 4.1 g/dL (3.5-5.0); ALT/SGPT 60 U/L (21-72); AST/SGOT 66 U/L (17-59); BLOOD UREA NITROGEN 11 mg/dL (9-20); GFR NON-AFRICAN AMERICAN > 60
[2019-02-04 21:11] LABS: URINE BILIRUBIN NEGATIVE (NEGATIVE); URINE BLOOD NEGATIVE (NEGATIVE); URINE CLARITY Clear (Clear); URINE COLOR Colorless (YELLOW); URINE GLUCOSE (UA) 3+ mg/dL (Normal); URINE LEUKOCYTE ESTERASE NEG Leu/uL (Negative); URINE PROTEIN NEGATIVE (NEGATIVE); URINE UROBILINOGEN NORMAL mg/dL (0.2-1.0)
[2019-02-04 21:18] LABS: BARBITURATES, UR NEGATIVE (NEGATIVE); PHENCYCLIDINE, UR NEGATIVE (NEGATIVE)
[2019-02-04 21:19] LABS: BENZODIAZEPINES, UR POSITIVE (NEGATIVE); OPIATES, UR POSITIVE (NEGATIVE)
[2019-02-04 21:38] LABS: BASO # 0.1 K/uL (0.0-0.2); BASO % 1.1 % (0.0-2.0); EOS # 0.1 K/uL (0.0-0.7); EOS % 1.2 % (0.0-4.0); LYMPH # 1.6 K/uL (1.0-4.3); LYMPH % 17.7 % (20.0-40.0); MEAN CELL VOLUME 67.8 fL (80.0-94.0); MEAN CORPUSCULAR HEMOGLOBIN 19.7 pg (27.0-31.0); MEAN CORPUSCULAR HGB CONC 29.1 g/dL (33.0-37.0); MEAN PLATELET VOLUME 7.6 fL (7.2-11.7); MONO # 0.6 K/uL (0.0-0.8); MONO % 6.2 % (0.0-10.0); NEUT # 6.6 K/uL (1.8-7.0); NEUT % 73.8 % (50.0-75.0); RBC 4.08 Mil/uL (4.40-5.90); WHITE BLOOD COUNT 8.9 K/uL (4.8-10.8)
[2019-02-04] MEDS ORDERED: (Novolin R) Insulin Human Regular 100 units/ml vial IVP ONE (23:35)
[2019-02-04] MEDS ORDERED: (Novolin R) Insulin Human Regular 100 units/ml vial ONE (23:58)
[2019-02-05 00:20] VITALS: BP 110/70; PULSE 70; RESP 14
[2019-02-06 18:27] VITALS: O2SAT 95
--- NOTE | 2019-02-09 00:08 | CARD ---
APPROVED REPORT Date of service: 02/04/2019 EKG Measurement Heart [id number] <Conclusion> Normal sinus rhythm with sinus arrhythmia Normal ECG
== END 2019-02-05 00:20 | disposition home or self-care (01) ==
LOC: C.ER 19:38
DX: G89.29 Other chronic pain (principal); M79.662 Pain in left lower leg; M79.661 Pain in right lower leg; E10.65 Type 1 diabetes mellitus with hyperglycemia; F11.10 Opioid abuse, uncomplicated; Z79.4 Long term (current) use of insulin
CPT/HCPCS: 80053; 81001; 82948; 83735; 84100; 85025; 96361; 96374; 99285; G0480; J7030